=== PATIENT | female | born 1960 | race Caucasian/White ===

== ENCOUNTER 2017-09-18 16:30 | Emergency (ER) | payer OTHER, MEDICAID, SELFPAY ==
[2017-09-18 16:31] VITALS: BP 135/75; PULSE 67; RESP 20; TEMP 36.1; O2SAT 100; BMI 19.3
--- NOTE | 2017-09-18 16:50 | PC.NURSE ---
Patient refuses to speak to nurse about procedure and refuses assessment. Reports I don't need a nurse, I need a doctor.
--- NOTE | 2017-09-18 16:51 | ED.SKABFB ---
HPI - Skin/Abscess/Foreign Bdy <Carmelita Ricardo PA-C - Last Filed: 09/18/17 21:58> General Chief complaint: Skin/Abscess/Foreign Body Stated complaint: POST OP BLEEDING Time Seen by Provider: 09/18/17 16:54 Source: patient Mode of arrival: ambulatory Limitations: no limitations History of Present Illness HPI narrative: This 56-year-old female states she was sent here by her PCP office today. She states that she is ???panicking???, because she had a stereotactic right breast biopsy yesterday and now has significant swelling and bruising underneath the breast. She states that she was told to rest today and wear a compression dressing, however she could not tolerate the dressing and had to work. 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 She denies any other new c/o except feeling anxious about this. No fever or other sx on ROS Related Data Previous Rx's Medication Instructions Recorded zolpidem 5 mg PO HSP PRN #20 tab 06/04/16 thyroid (pork) [[place] Thyroid] 60 mg PO EVERY OTHER DAY #90 tab 05/09/17 thyroid (pork) [[place] Thyroid] 90 mg PO SEE INSTRUCTIONS #90 tab 06/03/17 Review of Systems <Carmelita Ricardo PA-C - Last Filed: 09/18/17 21:58> Review of Systems All systems reviewed & are unremarkable except as noted in HPI and below Exam <Carmelita Ricardo PA-C - Last Filed: 09/18/17 21:58> Narrative Exam Narrative: GENERAL APPEARANCE: Patient sitting comfortably, in no distress. LUNGS: Clear to auscultation bilaterally. HEART: Rate and rhythm regular without murmur, normal S1 and S2, no S3 or S4. DERM: There are 2 puncture wounds on the R. breast, both scabbed. Around the inferior wound there is eccymoses and a small hematoma, mildly tender. No erythema or d/c. Compression dressing and wrap placed Initial Vital Signs Initial Vital Signs: Vital Signs Temperature 97.0 F L 09/18/17 16:31 Pulse Rate 67 09/18/17 16:31 Respiratory Rate 20 09/18/17 16:31 Blood Pressure 135/75 H 09/18/17 16:31 Pulse Oximetry 100 09/18/17 16:31 <Pineda Barnes DO - Last Filed: 09/22/17 07:06> Initial Vital Signs Initial Vital Signs: Vital Signs Temperature 97.0 F L 09/18/17 16:31 Pulse Rate 67 09/18/17 16:31 Respiratory Rate 20 09/18/17 16:31 Blood Pressure 135/75 H 09/18/17 16:31 Pulse Oximetry 100 09/18/17 16:31 Course <Carmelita Ricardo PA-C - Last Filed: 09/18/17 21:58> Orders Ordered: Discontinued Medications Acetaminophen (Tylenol) 650 mg PO NOW ONE Stop: 09/18/17 17:32 Last Admin: 09/18/17 17:34 Dose: 650 mg Vital Signs - 8 hr 09/18/17 16:31 Temperature 97.0 F L Pulse Rate 67 Respiratory Rate 20 Blood Pressure 135/75 H Pulse Oximetry 100 <Pineda Barnes DO - Last Filed: 09/22/17 07:06> Orders Ordered: Discontinued Medications Acetaminophen (Tylenol) 650 mg PO NOW ONE Stop: 09/18/17 17:32 Last Admin: 09/18/17 17:34 Dose: 650 mg Vital Signs - 8 hr 09/18/17 16:31 Temperature 97.0 F L Pulse Rate 67 Respiratory Rate 20 Blood Pressure 135/75 H Pulse Oximetry 100 Discharge Plan Departure Patient Disposition: Home, Self-Care Clinical Impression: Postoperative hematoma Discharge Date/Time: 09/18/17 17:45 Interventions: ED Discharge Assessment Last Done: 09/18/17 17:49 Instructions: DI for Hematoma (Bruise), Breast Needle Biopsy Activity Restrictions/Additional Instructions: It looks like you have some bleeding and bruising on the tissues under the skin. This is related to the biopsy but also due to you doing hard work today and not wearing the compression dressing. Keep a dressing on the wound like the 1 that we gave you today as that should help you be more comfortable. Try to avoid heavy work with your upper body as much as possible as you were instructed yesterday (that increases pressure on the surgery site and makes it take longer to heal). Follow up with your PCP in a couple of days for recheck. Return here if any acutely worsening symptoms. Prescriptions: No Action zolpidem 5 MG tablet 5 mg PO HSP PRNQty: 20 RF: 0 thyroid (pork) [[place] Thyroid] 60 MG tablet 60 mg PO EVERY OTHER DAY Qty: 90 RF: 3 thyroid (pork) [[place] Thyroid] 90 MG tablet 90 mg PO SEE INSTRUCTIONS Qty: 90 RF: 3 Referrals: Juan J Soriano MD [Primary Care Provider] - <Pineda Barnes DO - Last Filed: 09/22/17 07:06> Cosign ED Attending Jerome Attestation: I was available for consultation during this patient's emergency department encounter
[2017-09-18] MEDS: ACETAMINOPHEN 325 MG TABLET 650 MG PO (17:34)
--- NOTE | 2017-09-18 17:46 | PC.NURSE ---
Pt had breast biopsy yesterday. Puncture site is located on the underside of the right breast. Denies fever, chills, or any purulent drainage. There is redness/bruising around the puncture site.
== END 2017-09-18 17:45 | disposition home or self-care (01) ==
PROVIDERS: Emergency Provider Internal Medicine; PCP Family Medicine
DX: T81.9XXA Unspecified complication of procedure, initial encounter (principal)
CPT/HCPCS: 99282

== ENCOUNTER 2017-10-25 12:20 | Emergency (ER) | payer OTHER, MEDICAID, SELFPAY ==
[2017-10-25] VITALS (7 sets, daily range): BP systolic 116–142; BP diastolic 64–78; PULSE 55–66; RESP 12–16; TEMP 36.9; O2SAT 99–100
--- NOTE | 2017-10-25 12:28 | ED.CHESTPAIN ---
HPI - Chest Pain <KESHA Moscoso - Last Filed: 10/25/17 22:04> General Chief Complaint: Chest Pain Stated Complaint: HEART AND JAW PAIN Time Seen by Provider: 10/25/17 12:25 History of Present Illness HPI narrative: 56-year-old female with history of hypothyroidism and previous breast cancer here for complaint of chest pain on and off with pain radiating to the jaw for the last 2 days. She states that pain comes with activity. She does report that she has been under increased stress recently. She denies any cardiac history. She states she does not have pain at the current time. She denies any trauma to the chest. No shortness of breath. No fevers no chills. No cough. She is ambulatory into the emergency room. She states her last TSH was approximately 6-8 months ago and was normal. She states she is currently taking her thyroid medication as prescribed. She states that pain decreases when she is resting. She denies any other concerns or complaints. No nausea vomiting no diaphoresis. MD complaint: chest pain Duration: intermittent and now resolved Onset: during exertion Pain location: left chest Severity: moderate Related Data Previous Rx's Medication Instructions Recorded thyroid (pork) [[place] Thyroid] 60 mg PO EVERY OTHER DAY #90 tab 05/09/17 thyroid (pork) [[place] Thyroid] 90 mg PO SEE INSTRUCTIONS #90 tab 06/03/17 Allergies Allergy/AdvReac Type Severity Reaction Status Date / Time No Known Drug Allergies Allergy Unverified 09/23/17 09:30 Review of Systems <KESHA Moscoso - Last Filed: 10/25/17 22:04> Constitutional Denies chills, Denies fatigue, Denies fever(s), Denies lethargy and Denies weakness Eyes Denies change in vision, Denies eye discharge, Denies irritation and Denies loss of vision ENT Ears, Nose, Mouth, and Throat: Denies change in voice, Denies neck pain and Denies sore throat Cardiovascular Reports chest pain, Reports radiating jaw, neck or arm pain, Denies dyspnea and Denies dyspnea on exertion Respiratory Denies cough, Denies dyspnea, Denies dyspnea on exertion and Denies wheezing Gastrointestinal Gastrointestinal: Denies abdominal pain, Denies change in bowel habits, Denies diarrhea, Denies nausea and Denies vomiting Genitourinary Denies hematuria, Denies flank pain, Denies urinary incontinence and Denies urinary urgency Musculoskeletal Denies neck pain Integumentary/Breasts Denies pruritus, Denies erythema, Denies rash and Denies wounds Neurologic Denies loss of vision and Denies weakness Endocrine Denies fatigue and Denies flushing Allergic/Immunologic Denies wheezing Exam <KESHA Moscoso - Last Filed: 10/25/17 22:04> Initial Vital Signs Initial Vital Signs: Vital Signs Temperature 98.4 F 10/25/17 12:33 Pulse Rate 59 L 10/25/17 12:33 Respiratory Rate 16 10/25/17 12:33 Blood Pressure 142/78 H 10/25/17 12:33 Pulse Oximetry 99 10/25/17 12:33 Const General: cooperative and well developed Nutritional Appearance: well nourished Orientation: alert, awake, oriented x3 and not confused [place] Mouth: oral mucosae normal and moist mucous membranes Eyes Conjunctivae: conjunctivae normal Sclera: sclerae normal Pupils: PERRL EOM: EOM intact bilaterally Neck Neck: normal visual inspection, trachea midline, No lymphadenopathy, No midline deformity and No JVD Lymphatic: No lymphedema Chest Chest: normal inspection of the chest Resp Effort & Inspection: normal respiratory effort, able to speak in complete sentences, no respiratory distress and no use of accessory muscles Auscultation: clear to auscultation bilaterally, no rales, no rhonchi and no wheezes Cardio Rate: regular rate Rhythm: regular rhythm Heart Sounds: no click, no gallops, no murmurs and no rubs Pulses: normal peripheral pulses GI Inspection: non-distended Palpation: soft, no hepatosplenomegaly, No guarding, No pulsatile mass and No tender Auscultation: normal bowel sounds Skin General: no rashes or lesions noted, No jaundice and No petechiae <Pineda Barnes DO - Last Filed: 10/26/17 07:54> Initial Vital Signs Initial Vital Signs: Vital Signs Temperature 98.4 F 10/25/17 12:33 Pulse Rate 59 L 10/25/17 12:33 Respiratory Rate 16 10/25/17 12:33 Blood Pressure 142/78 H 10/25/17 12:33 Pulse Oximetry 99 10/25/17 12:33 Course <KESHA Moscoso - Last Filed: 10/25/17 22:04> Orders Ordered: Discontinued Medications Aspirin (Aspirin Chew) 324 mg PO NOW ONE Stop: 10/25/17 12:39 Last Admin: 10/25/17 13:02 Dose: 324 mg Sodium Chloride (Normal Saline 0.9%) 1,000 mls @ 150 mls/hr IV CONT AGA Last Admin: 10/25/17 13:03 Dose: Vital Signs - 8 hr 10/25/17 14:30 10/25/17 15:00 10/25/17 16:18 Pulse Rate 58 L 59 L 55 L Respiratory Rate 12 12 12 Blood Pressure [Left Arm] 129/64 H 124/73 H Pulse Oximetry 100 100 <Pineda Barnes DO - Last Filed: 10/26/17 07:54> Orders Ordered: Discontinued Medications Aspirin (Aspirin Chew) 324 mg PO NOW ONE Stop: 10/25/17 12:39 Last Admin: 10/25/17 13:02 Dose: 324 mg Sodium Chloride (Normal Saline 0.9%) 1,000 mls @ 150 mls/hr IV CONT AGA Last Admin: 10/25/17 13:03 Dose: Vital Signs - 8 hr 10/25/17 14:30 10/25/17 15:00 10/25/17 16:18 Pulse Rate 58 L 59 L 55 L Respiratory Rate 12 12 12 Blood Pressure [Left Arm] 129/64 H 124/73 H Pulse Oximetry 100 100 MDM - Chest Pain <KESHA Moscoso - Last Filed: 10/25/17 22:04> Lab Data Result diagrams: 10/25/17 12:40 10/25/17 12:40 Lab Results 10/25/17 10/25/17 10/25/17 Range/Units 12:40 12:40 12:40 WBC 6.1 (4.5-11.0) X10^3/uL RBC 3.95 L (4.0-5.2) X10^6/uL Hgb 12.7 (12.0-16.0) g/dL Hct 36.9 (36-46) % MCV 93.5 (80-100) fL MCH 32.2 (26-34) PG MCHC 34.4 (30-36) % RDW 14.2 (11.6-14.8) % Plt Count 184 (150-400) X10^3/uL Neut % (Auto) 47.6 L (50-75) % Lymph % (Auto) 40.3 H (25-40) % [place] % (Auto) 9.1 (3-14) % Eos % (Auto) 2.1 (2-4) % Baso % (Auto) 0.9 (0-2) % Neut # (Auto) 2900 L (6238-3344) /uL Sodium 137 (137-145) mmol/L Potassium 3.9 (3.4-5.1) mmol/L Chloride 104 (98-107) mmol/L Carbon Dioxide 26 (22-32) mmol/L BUN 14 (7-17) mg/dL Creatinine 0.70 (0.52-1.04) mg/dL Estimated GFR > 60.0 (>60) mL/min BUN/Creatinine Ratio 20.0 (6-22) Glucose 83 (70-100) mg/dL Calcium 9.5 (8.4-10.2) mg/dL Total Bilirubin 0.4 (0.2-1.3) mg/dL AST 33 (14-36) IU/L ALT 41 (9-52) IU/L Alkaline Phosphatase 91 (38-126) U/L Total Creatine Kinase 96 (30-135) U/L Troponin I < 0.012 (0.01-0.034) ng/mL B-Natriuretic Peptide < 100.0 (<100) Total Protein 6.7 (6.3-8.2) g/dL Albumin 4.1 (3.5-5.0) g/dL Globulin 2.6 (1.7-4.1) g/dL Albumin/Globulin Ratio 1.6 (1.0-2.8) TSH 2.06 (0.47-4.68) uIU/mL 10/25/17 Range/Units 14:42 WBC (4.5-11.0) X10^3/uL RBC (4.0-5.2) X10^6/uL Hgb (12.0-16.0) g/dL Hct (36-46) % MCV (80-100) fL MCH (26-34) PG MCHC (30-36) % RDW (11.6-14.8) % Plt Count (150-400) X10^3/uL Neut % (Auto) (50-75) % Lymph % (Auto) (25-40) % [place] % (Auto) (3-14) % Eos % (Auto) (2-4) % Baso % (Auto) (0-2) % Neut # (Auto) (0174-1249) /uL Sodium (137-145) mmol/L Potassium (3.4-5.1) mmol/L Chloride (98-107) mmol/L Carbon Dioxide (22-32) mmol/L BUN (7-17) mg/dL Creatinine (0.52-1.04) mg/dL Estimated GFR (>60) mL/min BUN/Creatinine Ratio (6-22) Glucose (70-100) mg/dL Calcium (8.4-10.2) mg/dL Total Bilirubin (0.2-1.3) mg/dL AST (14-36) IU/L ALT (9-52) IU/L Alkaline Phosphatase (38-126) U/L Total Creatine Kinase (30-135) U/L Troponin I < 0.012 (0.01-0.034) ng/mL B-Natriuretic Peptide (<100) Total Protein (6.3-8.2) g/dL Albumin (3.5-5.0) g/dL Globulin (1.7-4.1) g/dL Albumin/Globulin Ratio (1.0-2.8) TSH (0.47-4.68) uIU/mL Imaging Data Chest x-ray: Radiologist's impression: PROCEDURE: XR CHEST 1V INDICATIONS: chest pain TECHNIQUE: One view of the chest was acquired. COMPARISON: None. FINDINGS: Surgical changes and devices: Surgical clips left axilla.. Lungs and pleura: No pleural effusions or pneumothorax. Lungs are clear. Breast asymmetries with faint nipple shadows bilaterally. Mediastinum: Mediastinal contours appear normal. Heart size is normal. Bones and chest wall: No suspicious bony lesions. Overlying soft tissues appear unremarkable. IMPRESSION: No acute cardiopulmonary abnormality. Dictated by: Harsh Andrade M.D. on 10/25/2017 at 12:52 Approved by: Harsh Andrade M.D. on 10/25/2017 at 12:55 ECG Data Interpretation: EKG shows sinus bradycardia with no ST elevation or depression. No ectopy. Ventricular rate of 59. Pr interval of 160. QRS duration of 104. QT of 436. MDM Narrative Medical decision making narrative: EKG was obtained shows sinus rhythm with no ST elevation or depression. No ectopy. Chest x-ray was obtained was negative for any acute findings. CBC and Chem panel were obtained were unremarkable. Cardiac enzymes were negative. TSH was normal. No emergent cause of chest pain is found today. Recommended to patient follow up with primary care provider for further evaluation such as echo and stress test to rule out other cardiac complications. [id number] Tylenol Motrin as needed for any discomfort. Return to the emergency room for any worsening symptoms. Follow up primary care provider in the next few days. <Pineda Barnes, - Last Filed: 10/26/17 07:54> Lab Data Lab Results 10/25/17 10/25/17 10/25/17 Range/Units 12:40 12:40 12:40 WBC 6.1 (4.5-11.0) X10^3/uL RBC 3.95 L (4.0-5.2) X10^6/uL Hgb 12.7 (12.0-16.0) g/dL Hct 36.9 (36-46) % MCV 93.5 (80-100) fL MCH 32.2 (26-34) PG MCHC 34.4 (30-36) % RDW 14.2 (11.6-14.8) % Plt Count 184 (150-400) X10^3/uL Neut % (Auto) 47.6 L (50-75) % Lymph % (Auto) 40.3 H (25-40) % [place] % (Auto) 9.1 (3-14) % Eos % (Auto) 2.1 (2-4) % Baso % (Auto) 0.9 (0-2) % Neut # (Auto) 2900 L (0137-1460) /uL Sodium 137 (137-145) mmol/L Potassium 3.9 (3.4-5.1) mmol/L Chloride 104 (98-107) mmol/L Carbon Dioxide 26 (22-32) mmol/L BUN 14 (7-17) mg/dL Creatinine 0.70 (0.52-1.04) mg/dL Estimated GFR > 60.0 (>60) mL/min BUN/Creatinine Ratio 20.0 (6-22) Glucose 83 (70-100) mg/dL Calcium 9.5 (8.4-10.2) mg/dL Total Bilirubin 0.4 (0.2-1.3) mg/dL AST 33 (14-36) IU/L ALT 41 (9-52) IU/L Alkaline Phosphatase 91 (38-126) U/L Total Creatine Kinase 96 (30-135) U/L Troponin I < 0.012 (0.01-0.034) ng/mL B-Natriuretic Peptide < 100.0 (<100) Total Protein 6.7 (6.3-8.2) g/dL Albumin 4.1 (3.5-5.0) g/dL Globulin 2.6 (1.7-4.1) g/dL Albumin/Globulin Ratio 1.6 (1.0-2.8) TSH 2.06 (0.47-4.68) uIU/mL 10/25/17 Range/Units 14:42 WBC (4.5-11.0) X10^3/uL RBC (4.0-5.2) X10^6/uL Hgb (12.0-16.0) g/dL Hct (36-46) % MCV (80-100) fL MCH (26-34) PG MCHC (30-36) % RDW (11.6-14.8) % Plt Count (150-400) X10^3/uL Neut % (Auto) (50-75) % Lymph % (Auto) (25-40) % [place] % (Auto) (3-14) % Eos % (Auto) (2-4) % Baso % (Auto) (0-2) % Neut # (Auto) (5210-1925) /uL Sodium (137-145) mmol/L Potassium (3.4-5.1) mmol/L Chloride (98-107) mmol/L Carbon Dioxide (22-32) mmol/L BUN (7-17) mg/dL Creatinine (0.52-1.04) mg/dL Estimated GFR (>60) mL/min BUN/Creatinine Ratio (6-22) Glucose (70-100) mg/dL Calcium (8.4-10.2) mg/dL Total Bilirubin (0.2-1.3) mg/dL AST (14-36) IU/L ALT (9-52) IU/L Alkaline Phosphatase (38-126) U/L Total Creatine Kinase (30-135) U/L Troponin I < 0.012 (0.01-0.034) ng/mL B-Natriuretic Peptide (<100) Total Protein (6.3-8.2) g/dL Albumin (3.5-5.0) g/dL Globulin (1.7-4.1) g/dL Albumin/Globulin Ratio (1.0-2.8) TSH (0.47-4.68) uIU/mL Discharge Plan Departure Patient Disposition: Home, Self-Care Clinical Impression: Chest pain Discharge Date/Time: 10/25/17 16:37 Interventions: ED Discharge Assessment Last Done: 10/25/17 16:36 Instructions: DI for Chest Pain Activity Restrictions/Additional Instructions: EKG, chest x-ray and laboratory results were unremarkable today. No emergent cause of chest pain is found today. Use [id number] Tylenol and Motrin as needed for any discomfort. Chest pain may be due to chest wall pain. Recommend following up with primary care provider in the next few days for re-evaluation and discussion of obtaining further testing such as stress test and echocardiogram. For any worsening symptoms return to the emergency room. Prescriptions: No Action thyroid (pork) [[place] Thyroid] 60 MG tablet 60 mg PO EVERY OTHER DAY Qty: 90 RF: 3 thyroid (pork) [[place] Thyroid] 90 MG tablet 90 mg PO SEE INSTRUCTIONS Qty: 90 RF: 3 Referrals: Juan J Soriano MD [Primary Care Provider] - <Pineda Barnes DO - Last Filed: 10/26/17 07:54> Cosign ED Attending Jerome Attestation: I was available for consultation during this patient's emergency department encounter
--- NOTE | 2017-10-25 12:38 | DI.RAD.S_ITS ---
PROCEDURE: XR CHEST 1V INDICATIONS: chest pain TECHNIQUE: One view of the chest was acquired. COMPARISON: None. FINDINGS: Surgical changes and devices: Surgical clips left axilla.. Lungs and pleura: No pleural effusions or pneumothorax. Lungs are clear. Breast asymmetries with faint nipple shadows bilaterally. Mediastinum: Mediastinal contours appear normal. Heart size is normal. Bones and chest wall: No suspicious bony lesions. Overlying soft tissues appear unremarkable. IMPRESSION: No acute cardiopulmonary abnormality. Dictated by: Harsh Andrade M.D. on 10/25/2017 at 12:52 Approved by: Harsh Andrade M.D. on 10/25/2017 at 12:55
--- NOTE | 2017-10-25 12:49 | DI.CT.S_ITS ---
PROCEDURE: CT ANGIO CHEST PE PROTOCOL INDICATIONS: chest pain hx of breast cancer TECHNIQUE: After the administration of intravenous contrast, 2 mm thick sections acquired from the pulmonary apices to the posterior costophrenic angles. 3-dimensional maximum intensity projection (MIP) coronal and sagittal reformats were then acquired through the thorax. For radiation dose reduction, the following was used: automated exposure control, adjustment of mA and/or kV according to patient size. COMPARISON: None. FINDINGS: Image quality: Suboptimal timing of the contrast bolus Pulmonary arteries: Pulmonary arteries are normal in size, and demonstrate no intraluminal filling defects to suggest central pulmonary embolism. Lungs and pleura: Lungs are clear. No pleural effusions or pneumothorax. Central and peripheral airways are patent. Mediastinum: Heart size is normal, without pericardial effusion. No mediastinal or hilar adenopathy. Thoracic aorta is normal in caliber and enhancement. Esophagus is normal in caliber, without hiatal hernia. Bones and chest wall: Subtotal left mastectomy. Surgical clips in the left axilla. No suspicious bony lesions. Ribs and thoracic spine appear intact throughout. Thyroid gland is elongated on the right and appears to contain a 6 mm hypodense nodule anteriorly.. No axillary or supraclavicular adenopathy. Abdomen: Visualized upper abdominal solid organs appear normal in the early arterial phase of enhancement. IMPRESSION: 1. Exam is negative for pulmonary embolic disease. 2. No acute cardiopulmonary abnormality. 3. Enlarged right lobe of thyroid. Suggest thyroid ultrasound imaging. 4. Postoperative changes related to left breast cancer. No evidence of metastases. Dictated by: Harsh Andrade M.D. on 10/25/2017 at 13:38 Approved by: Harsh Andrade M.D. on 10/25/2017 at 13:46
--- NOTE | 2017-10-25 12:50 | ED_ITS ---
HPI - Chest Pain <KESHA Moscoso - Last Filed: 10/25/17 22:04> General Chief Complaint: Chest Pain Stated Complaint: HEART AND JAW PAIN Time Seen by Provider: 10/25/17 12:25 History of Present Illness HPI narrative: 56-year-old female with history of hypothyroidism and previous breast cancer here for complaint of chest pain on and off with pain radiating to the jaw for the last 2 days. She states that pain comes with activity. She does report that she has been under increased stress recently. She denies any cardiac history. She states she does not have pain at the current time. She denies any trauma to the chest. No shortness of breath. No fevers no chills. No cough. She is ambulatory into the emergency room. She states her last TSH was approximately 6-8 months ago and was normal. She states she is currently taking her thyroid medication as prescribed. She states that pain decreases when she is resting. She denies any other concerns or complaints. No nausea vomiting no diaphoresis. MD complaint: chest pain Duration: intermittent and now resolved Onset: during exertion Pain location: left chest Severity: moderate Related Data Previous Rx's Medication Instructions Recorded thyroid (pork) [[place] Thyroid] 60 mg PO EVERY OTHER DAY #90 tab 05/09/17 thyroid (pork) [[place] Thyroid] 90 mg PO SEE INSTRUCTIONS #90 tab 06/03/17 Allergies Allergy/AdvReac Type Severity Reaction Status Date / Time No Known Drug Allergies Allergy Unverified 09/23/17 09:30 Review of Systems <KESHA Moscoso - Last Filed: 10/25/17 22:04> Constitutional Denies chills, Denies fatigue, Denies fever(s), Denies lethargy and Denies weakness Eyes Denies change in vision, Denies eye discharge, Denies irritation and Denies loss of vision ENT Ears, Nose, Mouth, and Throat: Denies change in voice, Denies neck pain and Denies sore throat Cardiovascular Reports chest pain, Reports radiating jaw, neck or arm pain, Denies dyspnea and Denies dyspnea on exertion Respiratory Denies cough, Denies dyspnea, Denies dyspnea on exertion and Denies wheezing Gastrointestinal Gastrointestinal: Denies abdominal pain, Denies change in bowel habits, Denies diarrhea, Denies nausea and Denies vomiting Genitourinary Denies hematuria, Denies flank pain, Denies urinary incontinence and Denies urinary urgency Musculoskeletal Denies neck pain Integumentary/Breasts Denies pruritus, Denies erythema, Denies rash and Denies wounds Neurologic Denies loss of vision and Denies weakness Endocrine Denies fatigue and Denies flushing Allergic/Immunologic Denies wheezing Exam <KESHA Moscoso - Last Filed: 10/25/17 22:04> Initial Vital Signs Initial Vital Signs: Vital Signs Temperature 98.4 F 10/25/17 12:33 Pulse Rate 59 L 10/25/17 12:33 Respiratory Rate 16 10/25/17 12:33 Blood Pressure 142/78 H 10/25/17 12:33 Pulse Oximetry 99 10/25/17 12:33 Const General: cooperative and well developed Nutritional Appearance: well nourished Orientation: alert, awake, oriented x3 and not confused HENME Mouth: oral mucosae normal and moist mucous membranes Eyes Conjunctivae: conjunctivae normal Sclera: sclerae normal Pupils: PERRL EOM: EOM intact bilaterally Neck Neck: normal visual inspection, trachea midline, No lymphadenopathy, No midline deformity and No JVD Lymphatic: No lymphedema Chest Chest: normal inspection of the chest Resp Effort & Inspection: normal respiratory effort, able to speak in complete sentences, no respiratory distress and no use of accessory muscles Auscultation: clear to auscultation bilaterally, no rales, no rhonchi and no wheezes Cardio Rate: regular rate Rhythm: regular rhythm Heart Sounds: no click, no gallops, no murmurs and no rubs Pulses: normal peripheral pulses GI Inspection: non-distended Palpation: soft, no hepatosplenomegaly, No guarding, No pulsatile mass and No tender Auscultation: normal bowel sounds Skin General: no rashes or lesions noted, No jaundice and No petechiae <Pineda Barnes DO - Last Filed: 10/26/17 07:54> Initial Vital Signs Initial Vital Signs: Vital Signs Temperature 98.4 F 10/25/17 12:33 Pulse Rate 59 L 10/25/17 12:33 Respiratory Rate 16 10/25/17 12:33 Blood Pressure 142/78 H 10/25/17 12:33 Pulse Oximetry 99 10/25/17 12:33 Course <KESHA Moscoso - Last Filed: 10/25/17 22:04> Orders Ordered: Discontinued Medications Aspirin (Aspirin Chew) 324 mg PO NOW ONE Stop: 10/25/17 12:39 Last Admin: 10/25/17 13:02 Dose: 324 mg Sodium Chloride (Normal Saline 0.9%) 1,000 mls @ 150 mls/hr IV CONT AGA Last Admin: 10/25/17 13:03 Dose: Vital Signs - 8 hr 10/25/17 14:30 10/25/17 15:00 10/25/17 16:18 Pulse Rate 58 L 59 L 55 L Respiratory Rate 12 12 12 Blood Pressure [Left Arm] 129/64 H 124/73 H Pulse Oximetry 100 100 <Pineda Barnes DO - Last Filed: 10/26/17 07:54> Orders Ordered: Discontinued Medications Aspirin (Aspirin Chew) 324 mg PO NOW ONE Stop: 10/25/17 12:39 Last Admin: 10/25/17 13:02 Dose: 324 mg Sodium Chloride (Normal Saline 0.9%) 1,000 mls @ 150 mls/hr IV CONT AGA Last Admin: 10/25/17 13:03 Dose: Vital Signs - 8 hr 10/25/17 14:30 10/25/17 15:00 10/25/17 16:18 Pulse Rate 58 L 59 L 55 L Respiratory Rate 12 12 12 Blood Pressure [Left Arm] 129/64 H 124/73 H Pulse Oximetry 100 100 MDM - Chest Pain <KESHA Moscoso - Last Filed: 10/25/17 22:04> Lab Data Result diagrams: 10/25/17 12:40 10/25/17 12:40 Lab Results 10/25/17 10/25/17 10/25/17 Range/Units 12:40 12:40 12:40 WBC 6.1 (4.5-11.0) X10^3/uL RBC 3.95 L (4.0-5.2) X10^6/uL Hgb 12.7 (12.0-16.0) g/dL Hct 36.9 (36-46) % MCV 93.5 (80-100) fL MCH 32.2 (26-34) PG MCHC 34.4 (30-36) % RDW 14.2 (11.6-14.8) % Plt Count 184 (150-400) X10^3/uL Neut % (Auto) 47.6 L (50-75) % Lymph % (Auto) 40.3 H (25-40) % [place] % (Auto) 9.1 (3-14) % Eos % (Auto) 2.1 (2-4) % Baso % (Auto) 0.9 (0-2) % Neut # (Auto) 2900 L (6157-3241) /uL Sodium 137 (137-145) mmol/L Potassium 3.9 (3.4-5.1) mmol/L Chloride 104 (98-107) mmol/L Carbon Dioxide 26 (22-32) mmol/L BUN 14 (7-17) mg/dL Creatinine 0.70 (0.52-1.04) mg/dL Estimated GFR > 60.0 (>60) mL/min BUN/Creatinine Ratio 20.0 (6-22) Glucose 83 (70-100) mg/dL Calcium 9.5 (8.4-10.2) mg/dL Total Bilirubin 0.4 (0.2-1.3) mg/dL AST 33 (14-36) IU/L ALT 41 (9-52) IU/L Alkaline Phosphatase 91 (38-126) U/L Total Creatine Kinase 96 (30-135) U/L Troponin I < 0.012 (0.01-0.034) ng/mL B-Natriuretic Peptide < 100.0 (<100) Total Protein 6.7 (6.3-8.2) g/dL Albumin 4.1 (3.5-5.0) g/dL Globulin 2.6 (1.7-4.1) g/dL Albumin/Globulin Ratio 1.6 (1.0-2.8) TSH 2.06 (0.47-4.68) uIU/mL 10/25/17 Range/Units 14:42 WBC (4.5-11.0) X10^3/uL RBC (4.0-5.2) X10^6/uL Hgb (12.0-16.0) g/dL Hct (36-46) % MCV (80-100) fL MCH (26-34) PG MCHC (30-36) % RDW (11.6-14.8) % Plt Count (150-400) X10^3/uL Neut % (Auto) (50-75) % Lymph % (Auto) (25-40) % [place] % (Auto) (3-14) % Eos % (Auto) (2-4) % Baso % (Auto) (0-2) % Neut # (Auto) (9797-2925) /uL Sodium (137-145) mmol/L Potassium (3.4-5.1) mmol/L Chloride (98-107) mmol/L Carbon Dioxide (22-32) mmol/L BUN (7-17) mg/dL Creatinine (0.52-1.04) mg/dL Estimated GFR (>60) mL/min BUN/Creatinine Ratio (6-22) Glucose (70-100) mg/dL Calcium (8.4-10.2) mg/dL Total Bilirubin (0.2-1.3) mg/dL AST (14-36) IU/L ALT (9-52) IU/L Alkaline Phosphatase (38-126) U/L Total Creatine Kinase (30-135) U/L Troponin I < 0.012 (0.01-0.034) ng/mL B-Natriuretic Peptide (<100) Total Protein (6.3-8.2) g/dL Albumin (3.5-5.0) g/dL Globulin (1.7-4.1) g/dL Albumin/Globulin Ratio (1.0-2.8) TSH (0.47-4.68) uIU/mL Imaging Data Chest x-ray: Radiologist's impression: PROCEDURE: XR CHEST 1V INDICATIONS: chest pain TECHNIQUE: One view of the chest was acquired. COMPARISON: None. FINDINGS: Surgical changes and devices: Surgical clips left axilla.. Lungs and pleura: No pleural effusions or pneumothorax. Lungs are clear. Breast asymmetries with faint nipple shadows bilaterally. Mediastinum: Mediastinal contours appear normal. Heart size is normal. Bones and chest wall: No suspicious bony lesions. Overlying soft tissues appear unremarkable. IMPRESSION: No acute cardiopulmonary abnormality. Dictated by: Harsh Andrade M.D. on 10/25/2017 at 12:52 Approved by: Harsh Andrade M.D. on 10/25/2017 at 12:55 ECG Data Interpretation: EKG shows sinus bradycardia with no ST elevation or depression. No ectopy. Ventricular rate of 59. Pr interval of 160. QRS duration of 104. QT of 436. MDM Narrative Medical decision making narrative: EKG was obtained shows sinus rhythm with no ST elevation or depression. No ectopy. Chest x-ray was obtained was negative for any acute findings. CBC and Chem panel were obtained were unremarkable. Cardiac enzymes were negative. TSH was normal. No emergent cause of chest pain is found today. Recommended to patient follow up with primary care provider for further evaluation such as echo and stress test to rule out other cardiac complications. [id number] Tylenol Motrin as needed for any discomfort. Return to the emergency room for any worsening symptoms. Follow up primary care provider in the next few days. <Pineda Barnes, - Last Filed: 10/26/17 07:54> Lab Data Lab Results 10/25/17 10/25/17 10/25/17 Range/Units 12:40 12:40 12:40 WBC 6.1 (4.5-11.0) X10^3/uL RBC 3.95 L (4.0-5.2) X10^6/uL Hgb 12.7 (12.0-16.0) g/dL Hct 36.9 (36-46) % MCV 93.5 (80-100) fL MCH 32.2 (26-34) PG MCHC 34.4 (30-36) % RDW 14.2 (11.6-14.8) % Plt Count 184 (150-400) X10^3/uL Neut % (Auto) 47.6 L (50-75) % Lymph % (Auto) 40.3 H (25-40) % [place] % (Auto) 9.1 (3-14) % Eos % (Auto) 2.1 (2-4) % Baso % (Auto) 0.9 (0-2) % Neut # (Auto) 2900 L (1924-4395) /uL Sodium 137 (137-145) mmol/L Potassium 3.9 (3.4-5.1) mmol/L Chloride 104 (98-107) mmol/L Carbon Dioxide 26 (22-32) mmol/L BUN 14 (7-17) mg/dL Creatinine 0.70 (0.52-1.04) mg/dL Estimated GFR > 60.0 (>60) mL/min BUN/Creatinine Ratio 20.0 (6-22) Glucose 83 (70-100) mg/dL Calcium 9.5 (8.4-10.2) mg/dL Total Bilirubin 0.4 (0.2-1.3) mg/dL AST 33 (14-36) IU/L ALT 41 (9-52) IU/L Alkaline Phosphatase 91 (38-126) U/L Total Creatine Kinase 96 (30-135) U/L Troponin I < 0.012 (0.01-0.034) ng/mL B-Natriuretic Peptide < 100.0 (<100) Total Protein 6.7 (6.3-8.2) g/dL Albumin 4.1 (3.5-5.0) g/dL Globulin 2.6 (1.7-4.1) g/dL Albumin/Globulin Ratio 1.6 (1.0-2.8) TSH 2.06 (0.47-4.68) uIU/mL 10/25/17 Range/Units 14:42 WBC (4.5-11.0) X10^3/uL RBC (4.0-5.2) X10^6/uL Hgb (12.0-16.0) g/dL Hct (36-46) % MCV (80-100) fL MCH (26-34) PG MCHC (30-36) % RDW (11.6-14.8) % Plt Count (150-400) X10^3/uL Neut % (Auto) (50-75) % Lymph % (Auto) (25-40) % [place] % (Auto) (3-14) % Eos % (Auto) (2-4) % Baso % (Auto) (0-2) % Neut # (Auto) (4713-2559) /uL Sodium (137-145) mmol/L Potassium (3.4-5.1) mmol/L Chloride (98-107) mmol/L Carbon Dioxide (22-32) mmol/L BUN (7-17) mg/dL Creatinine (0.52-1.04) mg/dL Estimated GFR (>60) mL/min BUN/Creatinine Ratio (6-22) Glucose (70-100) mg/dL Calcium (8.4-10.2) mg/dL Total Bilirubin (0.2-1.3) mg/dL AST (14-36) IU/L ALT (9-52) IU/L Alkaline Phosphatase (38-126) U/L Total Creatine Kinase (30-135) U/L Troponin I < 0.012 (0.01-0.034) ng/mL B-Natriuretic Peptide (<100) Total Protein (6.3-8.2) g/dL Albumin (3.5-5.0) g/dL Globulin (1.7-4.1) g/dL Albumin/Globulin Ratio (1.0-2.8) TSH (0.47-4.68) uIU/mL Discharge Plan Departure Patient Disposition: Home, Self-Care Clinical Impression: Chest pain Discharge Date/Time: 10/25/17 16:37 Interventions: ED Discharge Assessment Last Done: 10/25/17 16:36 Instructions: DI for Chest Pain Activity Restrictions/Additional Instructions: EKG, chest x-ray and laboratory results were unremarkable today. No emergent cause of chest pain is found today. Use [id number] Tylenol and Motrin as needed for any discomfort. Chest pain may be due to chest wall pain. Recommend following up with primary care provider in the next few days for re-evaluation and discussion of obtaining further testing such as stress test and echocardiogram. For any worsening symptoms return to the emergency room. Prescriptions: No Action thyroid (pork) [[place] Thyroid] 60 MG tablet 60 mg PO EVERY OTHER DAY Qty: 90 RF: 3 thyroid (pork) [[place] Thyroid] 90 MG tablet 90 mg PO SEE INSTRUCTIONS Qty: 90 RF: 3 Referrals: Juan J Soriano MD [Primary Care Provider] - <Pineda Barnes DO - Last Filed: 10/26/17 07:54> Cosign ED Attending Jerome Attestation: I was available for consultation during this patient's emergency department encounter
[2017-10-25 12:52] LABS: Add Manual Diff / Slide Review NO; Basophils Percent Auto 0.9 % (0-2); Eosinophils Percent Auto 2.1 % (2-4); Hematocrit 36.9 % (36-46); Hemoglobin 12.7 g/dL (12.0-16.0); Lymphocytes Percent Auto 40.3 % (25-40); Mean Corpuscular HGB Conc 34.4 % (30-36); Mean Corpuscular Hemoglobin 32.2 PG (26-34); Mean Corpuscular Volume 93.5 fL (80-100); Monocytes Percent Auto 9.1 % (3-14); Neutrophils Absolute Auto 2900 /uL (3000-5900); Neutrophils Percent Auto 47.6 % (50-75); Platelet Count 184 X10^3/uL (150-400); Red Blood Cell Count 3.95 X10^6/uL (4.0-5.2); Red Cell Distribution Width 14.2 % (11.6-14.8); White Blood Cell Count 6.1 X10^3/uL (4.5-11.0)
[2017-10-25] MEDS: ASPIRIN 81 MG TAB 324 MG PO (13:02)
[2017-10-25 13:07] LABS: Alanine Aminotransferase 41 IU/L (9-52); Albumin 4.1 g/dL (3.5-5.0); Albumin Globulin Ratio 1.6 (1.0-2.8); Alkaline Phosphatase 91 U/L (38-126); Aspartate Aminotransferase 33 IU/L (14-36); Bilirubin Total 0.4 mg/dL (0.2-1.3); Blood Urea Nitrogen 14 mg/dL (7-17); Calcium 9.5 mg/dL (8.4-10.2); Carbon Dioxide 26 mmol/L (22-32); Chloride 104 mmol/L (98-107); Creatine Kinase 96 U/L (30-135); Estimated Glomerular Filt Rate > 60.0 mL/min (>60); Globulin 2.6 g/dL (1.7-4.1); Glucose 83 mg/dL (70-100); HEMOLYSIS < 15 (0-50); Potassium 3.9 mmol/L (3.4-5.1); Sodium 137 mmol/L (137-145); Total Protein 6.7 g/dL (6.3-8.2)
[2017-10-25 13:21] LABS: B Type Natriuretic Peptide < 100.0 (<100)
[2017-10-25 13:23] LABS: Troponin I < 0.012 ng/mL (0.01-0.034)
[2017-10-25 13:37] LABS: Thyroid Stimulating Hormone 2.06 uIU/mL (0.47-4.68)
[2017-10-25 16:19] LABS: Troponin I < 0.012 ng/mL (0.01-0.034)
== END 2017-10-25 16:37 | disposition home or self-care (01) ==
PROVIDERS: Emergency Provider Nurse Practitioner Family; PCP Family Medicine
DX: R07.89 Other chest pain (principal)
CPT/HCPCS: 36591; 71045; 71275; 80053; 81003; 82550; 82553; 83880; 84443; 84484; 85025; 93005; 93010; 99283; 99285; Q9967

== ENCOUNTER → 2018-04-11 15:46 | Outpatient (CLI) | payer OTHER, MEDICAID, SELFPAY ==
--- NOTE | 2018-04-11 15:48 | DI.RAD.S_ITS ---
PROCEDURE: XR KNEE RT 3V INDICATIONS: right knee pain TECHNIQUE: 3 views of the knee were acquired. COMPARISON: None. FINDINGS: Bones: No fractures or dislocations. Minimal degenerative change of the medial patellofemoral compartment of the right knee. Soft tissues: No joint effusion. IMPRESSION: No acute osseous abnormality of the right knee. Dictated by: Jose Becerra M.D. on 04/11/2018 at 16:34 Approved by: Jose Becerra M.D. on 04/11/2018 at 16:38
== END ==
PROVIDERS: PCP Family Medicine; Visit Provider Family Medicine
DX: M25.561 Pain in right knee (principal)
CPT/HCPCS: 73562

== ENCOUNTER → 2018-06-10 07:38 | Outpatient (CLI) | payer OTHER, MEDICAID, SELFPAY ==
[2018-06-10 08:29] LABS: Add Manual Diff / Slide Review NO; Basophils Absolute Auto 100 /uL (0-100); Basophils Percent Auto 1.5 % (0-2); Eosinophils Absolute Auto 100 /uL (0-450); Eosinophils Percent Auto 2.7 % (2-4); Hematocrit 41.3 % (36-46); Hemoglobin 13.6 g/dL (12.0-16.0); Lymphocytes Absolute Auto 1500 /uL (1100-4500); Lymphocytes Percent Auto 36.4 % (25-40); Mean Corpuscular Hemoglobin 31.1 PG (26-34); Mean Corpuscular Volume 94.1 fL (80-100); Monocytes Absolute Auto 600 /uL (0-900); Monocytes Percent Auto 13.7 % (3-14); Neutrophils Absolute Auto 1900 /uL (1500-7000); Neutrophils Percent Auto 45.7 % (50-75); Platelet Count 201 X10^3/uL (150-400); Red Blood Cell Count 4.39 X10^6/uL (4.0-5.2); Red Cell Distribution Width 14.9 % (11.6-14.8); White Blood Cell Count 4.1 X10^3/uL (4.5-11.0)
[2018-06-10 09:17] LABS: Alanine Aminotransferase 43 IU/L (9-52); Albumin 4.5 g/dL (3.5-5.0); Albumin Globulin Ratio 1.6 (1.0-2.8); Alkaline Phosphatase 73 U/L (38-126); Aspartate Aminotransferase 33 IU/L (14-36); Bilirubin Total 0.6 mg/dL (0.2-1.3); Blood Urea Nitrogen 12 mg/dL (7-17); Calcium 9.6 mg/dL (8.4-10.2); Carbon Dioxide 29 mmol/L (22-32); Chloride 102 mmol/L (98-107); Cholesterol 236 mg/dL (140-199); Estimated Glomerular Filt Rate > 60.0 mL/min (>60); Globulin 2.8 g/dL (1.7-4.1); Glucose 88 mg/dL (70-100); HDL Cholesterol 107 mg/dL (40-60); HEMOLYSIS < 15 (0-50); LDL Cholesterol Calculated 107 mg/dL (<100); Potassium 4.1 mmol/L (3.4-5.1); Sodium 137 mmol/L (137-145); Total Protein 7.3 g/dL (6.3-8.2); Triglycerides 112 mg/dL (35-150)
== END ==
PROVIDERS: PCP Family Medicine; Visit Provider Family Medicine
DX: Z00.00 Encounter for general adult medical examination without abnormal findings (principal); E03.9 Hypothyroidism, unspecified
CPT/HCPCS: 36415; 80053; 80061; 84443; 85025

== ENCOUNTER 2018-08-12 10:30 | Outpatient (RCR) | payer OTHER, MEDICAID, SELFPAY ==
--- NOTE | 2018-05-20 16:35 | PT.OIE ---
Current Diagnoses Pain in right knee (05/20/18) Muscle weakness (generalized) (05/20/18) Past Medical History (Last Updated 04/15/18 @ 10:28 by Darlene Oliva) Hyperthyroidism (Chronic 2002) History of breast cancer (Resolved) Past Surgical History (Last Reviewed 10/25/17 @ 12:49 by KESHA Moscoso) H/O left mastectomy (Resolved) History of appendectomy (Resolved) Provider Visit Care Team Role Provider Type Juan J Soriano MD Attending Provider Physician Primary Care Provider Specialty: [facility] Address: [address] [place] [address] Email: [email or web address] Physical Therapy Initial Evaluation PT-OP-A Visit Information Start: 05/16/18 16:32 Freq: Status: Active Protocol: Document 05/20/18 08:15 LRN (Rec: 05/20/18 17:46 LRN [id number]) Out-Patient Physical Therapy Visit Information Visit Information Visit Type Initial Evaluation Visit Start Time 08:15 Visit Stop Time 09:08 Total Visit Minutes 53 Visit Number 1 Number of HEAD BANQUET WAITER/WAITRESS Visits 0 Evaluation Information Evaluation Date 05/20/18 PT-OP-B Current Condition Start: 05/16/18 16:32 Freq: Status: Active Protocol: Document 05/20/18 08:15 LRN (Rec: 05/20/18 17:46 LRN [id number]) Current Condition History of Current Condition Onset Date 1-2 months ago. Current Complaints Pain & swelling in R medial knee, general swelling in R foot, ankle, leg. History of Current Condition Pt reports over the summer she noted swelling in the R foot and lower leg pain that progressed to swelling in the lateral aspect of the R knee, changing over time to the medial aspect of the R knee. She thinks she may have hit her R medial knee a couple times but can't recall for sure. She states with use of Epsom salt to the knee and foot her swelling has gone away, except for in the medial knee. She has pain now with squatting, stair ambulation, and [place] walks [place] She denies pain with walking short distances (2 blocks) and grocery store shopping. Prior Treatments and Tests She states X-rays show no bony changes. Treatment Goals Patient/Caregiver Goals Pt goal is to remove the pain and learn what she needs to do to keep her knee healthy. Prior Functional Status Baseline Function- ADL's Independent Baseline Function- Mobility Independent Baseline Function- Recreation/Hobbies Walked 3 miles without pain. Current Functional Impairments (Reported) Functional Limitations- ADL's R medial knee pain with stair ambulation and squatting. Functional Limitations- Mobility/Gait Unable to walk long distances now due to swelling in the feet. 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 PT-OP-C Subjective Start: 05/16/18 16:32 Freq: Status: Active Protocol: Document 05/20/18 08:15 LRN (Rec: 05/20/18 17:46 LRN [id number]) Patient Questionnaires ABC- Activity Specific Balance Confidence Scale ABC Score 62.5 ABC Functional Impairment 20 to <40% Impaired (Score 61- 80) OP-PT Pain Assessment Location R knee Pain Location Details Medial infrapatellar fat pad Intensity 3 Scale Used Numeric (1 - 10) Description Aching Frequency Intermittent Pain Aggravating Factors Walking Stair Climbing Other Pain Aggravating Factors Squatting Pain Alleviating Factors Rest Patient Stated Pain Goal Alleviate the pain PT-OP-D Balance Start: 05/16/18 16:32 Freq: Status: Active Protocol: Document 05/20/18 08:15 LRN (Rec: 05/20/18 17:46 LRN [id number]) Balance Tests Other Other Balance Tests Performed Pt was able to perform Single Leg Stance (SLS) without onset of pain. PT-OP-F Manual Assessment Start: 05/16/18 16:32 Freq: Status: Active Protocol: Document 05/20/18 08:15 LRN (Rec: 05/20/18 17:46 LRN [id number]) Manual Assessments Soft Tissue Assessment Soft Tissue Mobility Assessment Tenderness and swelling is present at R knee medial infrapatellar fat pad. Joint Mobility Assessment Joint Mobility Assessment R knee - normal. PT-OP-H Neuro Start: 05/16/18 16:32 Freq: Status: Active Protocol: Document 05/20/18 08:15 LRN (Rec: 05/20/18 17:46 LRN [id number]) Sensation Evaluation Gross Sensation Gross Sensation WNL Deep Tendon Reflex & Clonus Assessment Deep Tendon Reflex Bilateral Achilles Deep Tendon Reflex 3+ Normal But Brisk Bilateral Patellar Deep Tendon Reflex 3+ Normal But Brisk PT-OP-J Posture/Palpation/Skin Start: 05/16/18 16:32 Freq: Status: Active Protocol: Document 05/20/18 08:15 LRN (Rec: 05/20/18 17:46 LRN [id number]) Posture Evaluation Position Standing Evaluation View All positions Head/C-Spine Posture Forward Head Palpation Assessment Location Patella Palpation Location Medial infrapatellar Bursa Palpation Details Mild R knee pain with inferior /superior gliding. Decreased lateral mobility. Mild R medial patellar bursa tenderness Leg length Palpation Details Supine: Equal Long sit: R long. ASIS Palpation Location Bilateral ASIS Palpation Details ASIS>Umbilicus: 16 cm right, 14.5 cm left. Outflare of R ASIS. Lumbar Spine Palpation Location L2, L3, L5: PA [place] of spinous process Palpation Findings Muscle Guarding Tenderness PT-OP-K Range of Motion Start: 05/16/18 16:32 Freq: Status: Active Protocol: Document 05/20/18 08:15 LRN (Rec: 05/20/18 17:46 LRN [id number]) Hip Goniometric Range of Motion Hip Measured in Degrees Left Passive Testing Position Supine Straight Leg Raise 85 Internal Rotation 45 External Rotation 40 Right Passive Testing Position Supine Straight Leg Raise 95 Internal Rotation 45 External Rotation 55 Knee Goniometric Range of Motion Knee Measured in Degrees Left Knee ROM WFL Yes Right Knee ROM WFL Yes PT-OP-L Special Tests Start: 05/16/18 16:32 Freq: Status: Active Protocol: Document 05/20/18 08:15 LRN (Rec: 05/20/18 17:46 LRN [id number]) Special Tests Knee Special Tests Patellar Grind Test Test Results R knee: Positive Comments 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 Marquise's Sign Test Results R knee: Positive Comments Indicates swelling present Apley's Compression Test Results R knee: Negative Varus- 25 Degrees Test Results R knee: Negative Valgus- 25 Degrees Test Results R knee: Negative Posterior Draw Test Results R knee: Negative Mica Test Test Results R knee: Negative Shari's Test Results R knee: Negative Bounce Home Test Results R knee: Negative Anterior Draw Test Results R knee: Negative PT-OP-M Strength Start: 05/16/18 16:32 Freq: Status: Active Protocol: Document 05/20/18 08:15 LRN (Rec: 05/20/18 17:46 LRN [id number]) Hip Strength Hip Manual Muscle Testing Left Extension (S1) 4 Good Adduction 4- Good- Comments Strength is 5/5 except as indicated above. Right Extension (S1) 4 Good Adduction 4- Good- Comments Strength is 5/5 except as indicated above. Knee Strength Knee Manual Muscle Testing Left Reason Not Measured WFL Right Reason Not Measured WFL Ankle/Foot Strength Ankle and Foot Manual Muscle Testing Left Reason Not Measured WFL Right Reason Not Measured WFL PT-OP-Q Treatments Start: 05/16/18 16:32 Freq: Status: Active Protocol: Document 05/20/18 08:15 LRN (Rec: 05/20/18 17:46 LRN [id number]) Self-Care/Home Management Treatment Education Patient Education Home Exercise Program Activities Self-Care/Home Management Activities I/S pt in HEP: LUCIANO and Hip AD strengthening. PT-OP-T Assessment and Plan Start: 05/16/18 16:32 Freq: Status: Active Protocol: Document 05/20/18 08:15 LRN (Rec: 05/20/18 17:46 LRN [id number]) Physical Therapy Assessment Rehab Potential Rehabilitation Potential Excellent Evaluation Complexity Number of Personal Factors/Comorbidities 1-2 Number of Body Systems Impaired 4 or More Clinical Presentation at Evaluation Stable Impairments Impairments Edema Pain ROM Strength Goals Four Impairment Decreased R hip mobility and strength Supervisor Wrapping Room Goal (LTG) Improve R hip mobility and strength with improved function per ABC score of 79 or less. Three Impairment R knee edema Short Term Goal (STG) Pt will be educated in self care edema management. STG Duration 05/30/18 Two Impairment Pain limiting stair ambulatory ability Chcf Goal (LTG) Pt will be able to ambulate stairs without pain. LTG Duration 07/18/18 One Impairment Lacks self assisted exercise program Supervisor Wrapping Room Goal (LTG) Pt will be independent with a self care HEP. LTG Duration 07/18/18 Assessment Summary Assessment Pt presents with R swelling of the R infrapatellar fat pad and signs of chondromalacia of the knee, as well as decreased hip mobility and strength, resulting in knee pain and decreased functional ability. The pt will benefit from skilled physical therapy for modality treatment to reduce swelling, ROM and strengthening ex's, education and training in self care for edema and pain management and placement on a HEP for self care. Physical Therapy Plan Frequency and Duration Frequency of Treatment 2x/Week Plan of Care Start Date 05/20/18 Plan of Care End Date 07/18/18 Therapeutic Interventions Therapeutic Interventions Aquatic Therapy Balance Training Gait Training Home Exercise Program Joint Mobilizations Manual Therapy Neuromuscular Re-education Self-Care/Home Management Soft Tissue Mobilization Taping Therapeutic Exercises Modalities Cold Pack/Ice Massage Hot Packs Iontophoresis Ultrasound Other Therapeutic Interventions Iontophoresis: 4 mg/mL of Dexamethasone with Sodium Phosphate. Next Visit Focus/Plan Next Note Type Treatment Note Next Visit Plan Ultrasound to the R medial knee, f/b hip ROM and strengthening ex's, gait and stair ambulation training as needed, JMT for outflared R innominate, followed by pelvic and core stabilization and L/ S to decrease pain. K-taping of the R patella for condromalacia if beneficial to decrease pain.
--- NOTE | 2018-05-29 16:36 | PT.OPPOC ---
Current Diagnoses Pain in right knee (05/20/18) Muscle weakness (generalized) (05/20/18) Provider Visit Care Team Role Provider Type Juan J Soriano MD Attending Provider Physician Primary Care Provider Specialty: Family Practice Address: [address] [place] [address], [id number] Email: 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 Three Impairment R knee edema Short Term Goal (STG) Pt will be educated in self care edema management. STG Duration 05/30/18 Two Impairment Pain limiting stair ambulatory ability Senior Living Goal (LTG) Pt will be able to ambulate stairs without pain. LTG Duration 07/18/18 One Impairment Lacks self senior living exercise program Business Banking Sales Assistant Goal (LTG) Pt will be independent with a self care HEP. LTG Duration 07/18/18 Assessment Summary Assessment Pt presents with R swelling of the R infrapatellar fat pad and signs of chondromalacia of the knee, as well as decreased hip mobility and strength, resulting in knee pain and decreased functional ability. The pt will benefit from skilled physical therapy for modality treatment to reduce swelling, ROM and strengthening ex's, education and training in self care for edema and pain management and placement on a HEP for self care. Physical Therapy Plan Frequency and Duration Frequency of Treatment 2x/Week Plan of Care Start Date 05/20/18 Plan of Care End Date 07/18/18 Therapeutic Interventions Therapeutic Interventions Aquatic Therapy Balance Training Gait Training Home Exercise Program Joint Mobilizations Manual Therapy Neuromuscular Re-education Self-Care/Home Management Soft Tissue Mobilization Taping Therapeutic Exercises Modalities Cold Pack/Ice Massage Hot Packs Iontophoresis Ultrasound Other Therapeutic Interventions Iontophoresis: 4 mg/mL of Dexamethasone with Sodium Phosphate. Next Visit Focus/Plan Next Note Type Treatment Note Next Visit Plan Ultrasound to the R medial knee, f/b hip ROM and strengthening ex's, gait and stair ambulation training as needed, JMT for outflared R innominate, followed by pelvic and core stabilization and L/ S to decrease pain. K-taping of the R patella for condromalacia if beneficial to decrease pain. Plan of Care Dates Plan of Care Start Date 05/20/18 Plan of Care End Date 07/18/18 Please Sign and Return: I have reviewed this Plan of Care and certify that the skilled therapy services above are required to meet the patient?s needs. Physician Signature Date Printed Name and Credentials Clinical Instructor Signature Printed Name and Credentials
--- NOTE | 2018-06-17 10:00 | PT.OTN ---
Current Diagnoses Pain in right knee (06/17/18) Physical Therapy Treatment Note PT-OP-A Visit Information Start: 05/16/18 16:32 Freq: Status: Active Protocol: Document 06/17/18 08:27 LRN (Rec: 06/17/18 09:18 LRN [id number]) Out-Patient Physical Therapy Visit Information Visit Information Visit Type Initial Evaluation Visit Start Time 08:27 Visit Stop Time 09:19 Total Visit Minutes 52 Visit Number 1 Number of WOOD SCALER Visits 0 Evaluation Information Evaluation Date 05/20/18 PT-OP-B Current Condition Start: 05/16/18 16:32 Freq: Status: Active Protocol: Document 05/20/18 08:15 LRN (Rec: 05/20/18 17:46 LRN [id number]) Current Condition History of Current Condition Onset Date 1-2 months ago. Current Complaints Pain & swelling in R medial knee, general swelling in R foot, ankle, leg. History of Current Condition Pt reports over the summer she noted swelling in the R foot and lower leg pain that progressed to swelling in the lateral aspect of the R knee, changing over time to the medial aspect of the R knee. She thinks she may have hit her R medial knee a couple times but can't recall for sure. She states with use of Epsom salt to the knee and foot her swelling has gone away, except for in the medial knee. She has pain now with squatting, stair ambulation, and long walks ([place] She denies pain with walking short distances (2 blocks) and grocery store shopping. Prior Treatments and Tests She states X-rays show no bony changes. Treatment Goals Patient/Caregiver Goals Pt goal is to remove the pain and learn what she needs to do to keep her knee healthy. Prior Functional Status Baseline Function- ADL's Independent Baseline Function- Mobility Independent Baseline Function- Recreation/Hobbies Walked 3 miles without pain. Current Functional Impairments (Reported) Functional Limitations- ADL's R medial knee pain with stair ambulation and squatting. Functional Limitations- Mobility/Gait Unable to walk long distances now due to swelling in the feet. 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 PT-OP-C Subjective Start: 05/16/18 16:32 Freq: Status: Active Protocol: Document 06/17/18 08:27 LRN (Rec: 06/17/18 09:18 LRN [id number]) OP-PT Subjective Patient Comments Patient Comments R knee pain almost gone. Sometimes it aches. Feet are still swollen. PT-OP-D Balance Start: 05/16/18 16:32 Freq: Status: Active Protocol: Document 05/20/18 08:15 LRN (Rec: 05/20/18 17:46 LRN [id number]) Balance Tests Other Other Balance Tests Performed Pt was able to perform Single Leg Stance (SLS) without onset of pain. PT-OP-F Manual Assessment Start: 05/16/18 16:32 Freq: Status: Active Protocol: Document 05/20/18 08:15 LRN (Rec: 05/20/18 17:46 LRN [id number]) Manual Assessments Soft Tissue Assessment Soft Tissue Mobility Assessment Tenderness and swelling is present at R knee medial infrapatellar fat pad. Joint Mobility Assessment Joint Mobility Assessment R knee - normal. PT-OP-H Neuro Start: 05/16/18 16:32 Freq: Status: Active Protocol: Document 05/20/18 08:15 LRN (Rec: 05/20/18 17:46 LRN [id number]) Sensation Evaluation Gross Sensation Gross Sensation WNL Deep Tendon Reflex & Clonus Assessment Deep Tendon Reflex Bilateral Achilles Deep Tendon Reflex 3+ Normal But Brisk Bilateral Patellar Deep Tendon Reflex 3+ Normal But Brisk PT-OP-J Posture/Palpation/Skin Start: 05/16/18 16:32 Freq: Status: Active Protocol: Document 05/20/18 08:15 LRN (Rec: 05/20/18 17:46 LRN [id number]) Posture Evaluation Position Standing Evaluation View All positions Head/C-Spine Posture Forward Head Palpation Assessment Location Patella Palpation Location Medial infrapatellar Bursa Palpation Details Mild R knee pain with inferior /superior gliding. Decreased lateral mobility. Mild R medial patellar bursa tenderness Leg length Palpation Details Supine: Equal Long sit: R long. ASIS Palpation Location Bilateral ASIS Palpation Details ASIS>Umbilicus: 16 cm right, 14.5 cm left. Outflare of R ASIS. Lumbar Spine Palpation Location L2, L3, L5: PA [place] of spinous process Palpation Findings Muscle Guarding Tenderness PT-OP-K Range of Motion Start: 05/16/18 16:32 Freq: Status: Active Protocol: Document 05/20/18 08:15 LRN (Rec: 05/20/18 17:46 LRN [id number]) Hip Goniometric Range of Motion Hip Measured in Degrees Left Passive Testing Position Supine Straight Leg Raise 85 Internal Rotation 45 External Rotation 40 Right Passive Testing Position Supine Straight Leg Raise 95 Internal Rotation 45 External Rotation 55 Knee Goniometric Range of Motion Knee Measured in Degrees Left Knee ROM WFL Yes Right Knee ROM WFL Yes PT-OP-L Special Tests Start: 05/16/18 16:32 Freq: Status: Active Protocol: Document 05/20/18 08:15 LRN (Rec: 05/20/18 17:46 LRN [id number]) Special Tests Knee Special Tests Patellar Grind Test Test Results R knee: Positive Comments 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 Marquise's Sign Test Results R knee: Positive Comments Indicates swelling present Apley's Compression Test Results R knee: Negative Varus- 25 Degrees Test Results R knee: Negative Valgus- 25 Degrees Test Results R knee: Negative Posterior Draw Test Results R knee: Negative Mica Test Test Results R knee: Negative Shari's Test Results R knee: Negative Bounce Home Test Results R knee: Negative Anterior Draw Test Results R knee: Negative PT-OP-M Strength Start: 05/16/18 16:32 Freq: Status: Active Protocol: Document 05/20/18 08:15 LRN (Rec: 05/20/18 17:46 LRN [id number]) Hip Strength Hip Manual Muscle Testing Left Extension (S1) 4 Good Adduction 4- Good- Comments Strength is 5/5 except as indicated above. Right Extension (S1) 4 Good Adduction 4- Good- Comments Strength is 5/5 except as indicated above. Knee Strength Knee Manual Muscle Testing Left Reason Not Measured WFL Right Reason Not Measured WFL Ankle/Foot Strength Ankle and Foot Manual Muscle Testing Left Reason Not Measured WFL Right Reason Not Measured WFL PT-OP-Q Treatments Start: 05/16/18 16:32 Freq: Status: Active Protocol: Document 06/17/18 08:27 LRN (Rec: 06/17/18 09:18 LRN [id number]) Therapeutic Exercises Supine Exercises DLS Supine Exercise Name Heel slides - bilateral & single Comments Pt unable to perform ex properly, therefore discontinued Active hip AD Supine Exercise Name hip 90 deg's flexed and in a V pattern of AB/AD Side bilateral Reps/Minutes 2 Comments Pt unable to perform ex properly, therefore discontinued Hip AD Supine Exercise Name Isometric Side bilateral Equipment Used Ball Reps/Minutes 10x holding 10 sec Sitting Exercises Abdominal Sitting Exercise Name Isometric Hands/Knee push Side bilateral Comments Pt able to feels abdominal tightening. Standing Exercises Abdominal strengthening Standing Exercise Name Isometric Comments Pt unable to perform ex properly, therefore discontinued Self-Care/Home Management Treatment Education Other Education Discussed anatomy and physiology of swelling of extremities. Discussed options of compression hose for pt to wear for work. Issued name and light compression factor with recommendation of knee or thigh high Jobst stocking with discussion of other vendor stockings. Activities Self-Care/Home Management Activities Instructed pt in HEP: Isometric hip AD ex ball squeeze & abdominal tightening with heel slides and sitting hands/knees push. PT-OP-R Modalities Start: 05/16/18 16:32 Freq: Status: Active Protocol: Document 06/17/18 08:27 LRN (Rec: 06/17/18 09:35 LRN [id number]) Ultrasound Therapy Treatment Right Knee Treatment Duration (minutes) 8 Patient Position Supine Coupling Medium Ultrasound Gel Applicator Size (cm2) 10 Frequency Setting (mHz) 1 Duty Cycle 50% Intensity Setting (w/cm2) 1.0 Comments Medial and lateral aspect of the knee PT-OP-T Assessment and Plan Start: 05/16/18 16:32 Freq: Status: Active Protocol: Document 06/17/18 08:27 LRN (Rec: 06/17/18 09:18 LRN [id number]) Physical Therapy Assessment Goals Four Impairment Decreased R hip mobility and strength Exceptional Children'S Teacher Goal (LTG) Improve R hip mobility and strength with improved function per ABC score of 79 or less. LTG Duration 06/30/09 (06/17/18: Started carmen hip AD strengthening) Three Impairment R knee edema Short Term Goal (STG) Pt will be educated in self care edema management. STG Duration 05/30/18 (06/17/18: Partially met - educated pt in anatomy) Two Impairment Pain limiting stair ambulatory ability [facility] Goal (LTG) Pt will be able to ambulate stairs without pain. LTG Duration 07/18/18 One Impairment Lacks self skilled nursing exercise program [facility] Goal (LTG) Pt will be independent with a self care HEP. LTG Duration 07/18/18 (06/17/18: Started HEP) Progress Towards Goals Progress Towards Goals Progressing Toward Goals Progress Comments Goal #1: HEP progressing. Goal #2: Strengthening started , pain is decreased at the R knee. Goal #3: Edema decreased. Goal #4: R hip strengthening started, mobility not addressed yet. Assessment Summary Assessment Pt presents with decreased swelling of the R infrapatellar fat pad and today no signs of chondromalacia of the knee. Unable to address decreased hip mobility due to poor awareness of her core with hip strengthening. Further training is needed for core stabilization to stabilize pelvis and to start hip strengthening. Physical Therapy Plan Frequency and Duration Frequency of Treatment 2x/Week Plan of Care Start Date 05/20/18 Plan of Care End Date 07/18/18 Next Visit Focus/Plan Next Note Type Treatment Note Next Visit Plan Assess response to Ultrasound to the R medial knee. Start HEP of hip ROM and hip strengthening & pelvic and core stabilization and L/S to decrease pain. Address gait and stair ambulation. 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
--- NOTE | 2018-06-24 10:15 | PT.OTN ---
Current Diagnoses Pain in right knee (06/24/18) Physical Therapy Treatment Note PT-OP-A Visit Information Start: 05/16/18 16:32 Freq: Status: Active Protocol: Document 06/24/18 09:04 LRN (Rec: 06/24/18 09:46 LRN [id number]) Out-Patient Physical Therapy Visit Information Visit Information Visit Type Initial Evaluation Visit Start Time 09:04 Visit Stop Time 09:45 Total Visit Minutes 41 Visit Number 3 Number of ROADING ENGINEER Visits 0 Evaluation Information Evaluation Date 05/20/18 PT-OP-B Current Condition Start: 05/16/18 16:32 Freq: Status: Active Protocol: Document 05/20/18 08:15 LRN (Rec: 05/20/18 17:46 LRN [id number]) Current Condition History of Current Condition Onset Date 1-2 months ago. Current Complaints Pain & swelling in R medial knee, general swelling in R foot, ankle, leg. History of Current Condition Pt reports over the summer she noted swelling in the R foot and lower leg pain that progressed to swelling in the lateral aspect of the R knee, changing over time to the medial aspect of the R knee. She thinks she may have hit her R medial knee a couple times but can't recall for sure. She states with use of Epsom salt to the knee and foot her swelling has gone away, except for in the medial knee. She has pain now with squatting, stair ambulation, and long walks ([place] She denies pain with walking short distances (2 blocks) and grocery store shopping. Prior Treatments and Tests She states X-rays show no bony changes. Treatment Goals Patient/Caregiver Goals Pt goal is to remove the pain and learn what she needs to do to keep her knee healthy. Prior Functional Status Baseline Function- ADL's Independent Baseline Function- Mobility Independent Baseline Function- Recreation/Hobbies Walked 3 miles without pain. Current Functional Impairments (Reported) Functional Limitations- ADL's R medial knee pain with stair ambulation and squatting. Functional Limitations- Mobility/Gait Unable to walk long distances now due to swelling in the feet. 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 PT-OP-C Subjective Start: 05/16/18 16:32 Freq: Status: Active Protocol: Document 06/24/18 09:04 LRN (Rec: 06/24/18 09:46 LRN [id number]) OP-PT Subjective Patient Comments Patient Comments Slipped on the snow and fell and again felt pain around the medial/superior/inferior patella. After a couple days went away. At work only swelling feet. PT-OP-D Balance Start: 05/16/18 16:32 Freq: Status: Active Protocol: Document 05/20/18 08:15 LRN (Rec: 05/20/18 17:46 LRN [id number]) Balance Tests Other Other Balance Tests Performed Pt was able to perform Single Leg Stance (SLS) without onset of pain. PT-OP-F Manual Assessment Start: 05/16/18 16:32 Freq: Status: Active Protocol: Document 05/20/18 08:15 LRN (Rec: 05/20/18 17:46 LRN [id number]) Manual Assessments Soft Tissue Assessment Soft Tissue Mobility Assessment Tenderness and swelling is present at R knee medial infrapatellar fat pad. Joint Mobility Assessment Joint Mobility Assessment R knee - normal. PT-OP-H Neuro Start: 05/16/18 16:32 Freq: Status: Active Protocol: Document 05/20/18 08:15 LRN (Rec: 05/20/18 17:46 LRN [id number]) Sensation Evaluation Gross Sensation Gross Sensation WNL Deep Tendon Reflex & Clonus Assessment Deep Tendon Reflex Bilateral Achilles Deep Tendon Reflex 3+ Normal But Brisk Bilateral Patellar Deep Tendon Reflex 3+ Normal But Brisk PT-OP-J Posture/Palpation/Skin Start: 05/16/18 16:32 Freq: Status: Active Protocol: Document 05/20/18 08:15 LRN (Rec: 05/20/18 17:46 LRN [id number]) Posture Evaluation Position Standing Evaluation View All positions Head/C-Spine Posture Forward Head Palpation Assessment Location Patella Palpation Location Medial infrapatellar Bursa Palpation Details Mild R knee pain with inferior /superior gliding. Decreased lateral mobility. Mild R medial patellar bursa tenderness Leg length Palpation Details Supine: Equal Long sit: R long. ASIS Palpation Location Bilateral ASIS Palpation Details ASIS>Umbilicus: 16 cm right, 14.5 cm left. Outflare of R ASIS. Lumbar Spine Palpation Location L2, L3, L5: PA [place] of spinous process Palpation Findings Muscle Guarding Tenderness PT-OP-K Range of Motion Start: 05/16/18 16:32 Freq: Status: Active Protocol: Document 05/20/18 08:15 LRN (Rec: 05/20/18 17:46 LRN [id number]) Hip Goniometric Range of Motion Hip Measured in Degrees Left Passive Testing Position Supine Straight Leg Raise 85 Internal Rotation 45 External Rotation 40 Right Passive Testing Position Supine Straight Leg Raise 95 Internal Rotation 45 External Rotation 55 Knee Goniometric Range of Motion Knee Measured in Degrees Left Knee ROM WFL Yes Right Knee ROM WFL Yes PT-OP-L Special Tests Start: 05/16/18 16:32 Freq: Status: Active Protocol: Document 05/20/18 08:15 LRN (Rec: 05/20/18 17:46 LRN [id number]) Special Tests Knee Special Tests Patellar Grind Test Test Results R knee: Positive Comments 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 Marquise's Sign Test Results R knee: Positive Comments Indicates swelling present Apley's Compression Test Results R knee: Negative Varus- 25 Degrees Test Results R knee: Negative Valgus- 25 Degrees Test Results R knee: Negative Posterior Draw Test Results R knee: Negative Mica Test Test Results R knee: Negative Shari's Test Results R knee: Negative Bounce Home Test Results R knee: Negative Anterior Draw Test Results R knee: Negative PT-OP-M Strength Start: 05/16/18 16:32 Freq: Status: Active Protocol: Document 05/20/18 08:15 LRN (Rec: 05/20/18 17:46 LRN [id number]) Hip Strength Hip Manual Muscle Testing Left Extension (S1) 4 Good Adduction 4- Good- Comments Strength is 5/5 except as indicated above. Right Extension (S1) 4 Good Adduction 4- Good- Comments Strength is 5/5 except as indicated above. Knee Strength Knee Manual Muscle Testing Left Reason Not Measured WFL Right Reason Not Measured WFL Ankle/Foot Strength Ankle and Foot Manual Muscle Testing Left Reason Not Measured WFL Right Reason Not Measured WFL PT-OP-Q Treatments Start: 05/16/18 16:32 Freq: Status: Active Protocol: Document 06/24/18 09:04 LRN (Rec: 06/24/18 09:46 LRN [id number]) Therapeutic Exercises Supine Exercises SLR Supine Exercise Name 12 & 2 O'clock with DLS training Reps/Minutes 15' Comments Much, much training needed for DLS before SLR DLS Supine Exercise Name Lower Trunk Rotation Reps/Minutes 9' Comments Focus on L rotation Standing Exercises Abdominal strengthening Standing Exercise Name Trunk rotation left Resistance None and with Lev 2 T-Band Reps/Minutes 15' Comments Much training and physical cuing needed Self-Care/Home Management Treatment Education Patient Education Home Exercise Program Activities Self-Care/Home Management Activities Issued Lev 2 Latex Free T-Band and Instructed pt in standing lower trunk rotation. PT-OP-R Modalities Start: 05/16/18 16:32 Freq: Status: Active Protocol: Document 06/17/18 08:27 LRN (Rec: 06/17/18 09:35 LRN [id number]) Ultrasound Therapy Treatment Right Knee Treatment Duration (minutes) 8 Patient Position Supine Coupling Medium Ultrasound Gel Applicator Size (cm2) 10 Frequency Setting (mHz) 1 Duty Cycle 50% Intensity Setting (w/cm2) 1.0 Comments Medial and lateral aspect of the knee PT-OP-T Assessment and Plan Start: 05/16/18 16:32 Freq: Status: Active Protocol: Document 06/24/18 09:04 LRN (Rec: 06/24/18 09:46 LRN [id number]) Physical Therapy Assessment Goals Four Impairment Decreased R hip mobility and strength Three Impairment R knee edema Short Term Goal (STG) Pt will be educated in self care edema management. STG Duration 05/30/18 GOAL MET. Two Impairment Pain limiting stair ambulatory ability Sole Stitcher Hand Goal (LTG) Pt will be able to ambulate stairs without pain. LTG Duration 07/18/18 (06/24/18: GOAL MET) One Impairment Lacks self detention exercise program Progress Towards Goals Progress Towards Goals Progressing Toward Goals Progress Comments Goal #1: HEP progressing. Goal #2: GOAL MET (no pain with stair or gait ambulation) . Goal #3: Pt reports edema at R knee decreased, visual inspection not made due to pt did not have shorts to wear. Goal #4: Mobility not addressed, R hip strengthening started but delayed due to poor core stab. Pain off/on at the R knee based on fall yesterday. Assessment Summary Assessment + response to US with less reported swelling of the R infrapatellar fat pad today even after fall yesterday. No problem with stairs and symmetrical pelvic positioning . L leg measure .5 cm longer in supine with R 65.3 & L 65.8 cm (ASIS>Medial malleolus). Unable to address decreased hip mobility due to poor awareness of her core with hip strengthening although much improved awareness by end of therapy. Further training is needed for core stabilization to stabilize pelvis and to start hip strengthening. Physical Therapy Plan Frequency and Duration Frequency of Treatment 2x/Week Plan of Care Start Date 05/20/18 Plan of Care End Date 07/18/18 Next Visit Focus/Plan Next Note Type Treatment Note Next Visit Plan Check/visual for edema at R knee, start HEP of hip ROM, review hip strengthening & pelvic/core stabilization and L/S to decrease pain. 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
--- NOTE | 2018-07-01 11:53 | PT.OTN ---
Current Diagnoses Pain in right knee (07/01/18) Physical Therapy Treatment Note PT-OP-A Visit Information Start: 05/16/18 16:32 Freq: Status: Active Protocol: Document 07/01/18 10:35 LRN (Rec: 07/01/18 11:37 LRN [id number]) Out-Patient Physical Therapy Visit Information Visit Information Visit Type Initial Evaluation Visit Start Time 10:35 Visit Stop Time 11:33 Total Visit Minutes 58 Visit Number 3 Number of ETL CONSULTANT Visits 0 Evaluation Information Evaluation Date 05/20/18 PT-OP-B Current Condition Start: 05/16/18 16:32 Freq: Status: Active Protocol: Document 05/20/18 08:15 LRN (Rec: 05/20/18 17:46 LRN [id number]) Current Condition History of Current Condition Onset Date 1-2 months ago. Current Complaints Pain & swelling in R medial knee, general swelling in R foot, ankle, leg. History of Current Condition Pt reports over the summer she noted swelling in the R foot and lower leg pain that progressed to swelling in the lateral aspect of the R knee, changing over time to the medial aspect of the R knee. She thinks she may have hit her R medial knee a couple times but can't recall for sure. She states with use of Epsom salt to the knee and foot her swelling has gone away, except for in the medial knee. She has pain now with squatting, stair ambulation, and long walks [place] She denies pain with walking short distances (2 blocks) and grocery store shopping. Prior Treatments and Tests She states X-rays show no bony changes. Treatment Goals Patient/Caregiver Goals Pt goal is to remove the pain and learn what she needs to do to keep her knee healthy. Prior Functional Status Baseline Function- ADL's Independent Baseline Function- Mobility Independent Baseline Function- Recreation/Hobbies Walked 3 miles without pain. Current Functional Impairments (Reported) Functional Limitations- ADL's R medial knee pain with stair ambulation and squatting. Functional Limitations- Mobility/Gait Unable to walk long distances now due to swelling in the feet. 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 PT-OP-C Subjective Start: 05/16/18 16:32 Freq: Status: Active Protocol: Document 07/01/18 10:35 LRN (Rec: 07/01/18 11:37 LRN [id number]) OP-PT Subjective Patient Comments Patient Comments Requests use of ultrasound on knees because they have been hurting for a couple days. Worked and extra day 2 days ago. L knee is better, problem is the R knee. PT-OP-D Balance Start: 05/16/18 16:32 Freq: Status: Active Protocol: Document 05/20/18 08:15 LRN (Rec: 05/20/18 17:46 LRN [id number]) Balance Tests Other Other Balance Tests Performed Pt was able to perform Single Leg Stance (SLS) without onset of pain. PT-OP-F Manual Assessment Start: 05/16/18 16:32 Freq: Status: Active Protocol: Document 05/20/18 08:15 LRN (Rec: 05/20/18 17:46 LRN [id number]) Manual Assessments Soft Tissue Assessment Soft Tissue Mobility Assessment Tenderness and swelling is present at R knee medial infrapatellar fat pad. Joint Mobility Assessment Joint Mobility Assessment R knee - normal. PT-OP-H Neuro Start: 05/16/18 16:32 Freq: Status: Active Protocol: Document 05/20/18 08:15 LRN (Rec: 05/20/18 17:46 LRN [id number]) Sensation Evaluation Gross Sensation Gross Sensation WNL Deep Tendon Reflex & Clonus Assessment Deep Tendon Reflex Bilateral Achilles Deep Tendon Reflex 3+ Normal But Brisk Bilateral Patellar Deep Tendon Reflex 3+ Normal But Brisk PT-OP-J Posture/Palpation/Skin Start: 05/16/18 16:32 Freq: Status: Active Protocol: Document 05/20/18 08:15 LRN (Rec: 05/20/18 17:46 LRN [id number]) Posture Evaluation Position Standing Evaluation View All positions Head/C-Spine Posture Forward Head Palpation Assessment Location Patella Palpation Location Medial infrapatellar Bursa Palpation Details Mild R knee pain with inferior /superior gliding. Decreased lateral mobility. Mild R medial patellar bursa tenderness Leg length Palpation Details Supine: Equal Long sit: R long. ASIS Palpation Location Bilateral ASIS Palpation Details ASIS>Umbilicus: 16 cm right, 14.5 cm left. Outflare of R ASIS. Lumbar Spine Palpation Location L2, L3, L5: PA [place] of spinous process Palpation Findings Muscle Guarding Tenderness PT-OP-K Range of Motion Start: 05/16/18 16:32 Freq: Status: Active Protocol: Document 05/20/18 08:15 LRN (Rec: 05/20/18 17:46 LRN [id number]) Hip Goniometric Range of Motion Hip Measured in Degrees Left Passive Testing Position Supine Straight Leg Raise 85 Internal Rotation 45 External Rotation 40 Right Passive Testing Position Supine Straight Leg Raise 95 Internal Rotation 45 External Rotation 55 Knee Goniometric Range of Motion Knee Measured in Degrees Left Knee ROM WFL Yes Right Knee ROM WFL Yes PT-OP-L Special Tests Start: 05/16/18 16:32 Freq: Status: Active Protocol: Document 05/20/18 08:15 LRN (Rec: 05/20/18 17:46 LRN [id number]) Special Tests Knee Special Tests Patellar Grind Test Test Results R knee: Positive Comments 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 Marquise's Sign Test Results R knee: Positive Comments Indicates swelling present Apley's Compression Test Results R knee: Negative Varus- 25 Degrees Test Results R knee: Negative Valgus- 25 Degrees Test Results R knee: Negative Posterior Draw Test Results R knee: Negative Mica Test Test Results R knee: Negative Shari's Test Results R knee: Negative Bounce Home Test Results R knee: Negative Anterior Draw Test Results R knee: Negative PT-OP-M Strength Start: 05/16/18 16:32 Freq: Status: Active Protocol: Document 05/20/18 08:15 LRN (Rec: 05/20/18 17:46 LRN [id number]) Hip Strength Hip Manual Muscle Testing Left Extension (S1) 4 Good Adduction 4- Good- Comments Strength is 5/5 except as indicated above. Right Extension (S1) 4 Good Adduction 4- Good- Comments Strength is 5/5 except as indicated above. Knee Strength Knee Manual Muscle Testing Left Reason Not Measured WFL Right Reason Not Measured WFL Ankle/Foot Strength Ankle and Foot Manual Muscle Testing Left Reason Not Measured WFL Right Reason Not Measured WFL PT-OP-Q Treatments Start: 05/16/18 16:32 Freq: Status: Active Protocol: Document 07/01/18 10:35 LRN (Rec: 07/01/18 11:37 LRN [id number]) Therapeutic Exercises Supine Exercises Hands/Knees Push Supine Exercise Name Lower abdominal strengthening Side bilateral Resistance red T-Ball Reps/Minutes 10x Holding 10 sec's SLR Supine Exercise Name 12 & 2 O'clock with DLS training Reps/Minutes 13' Comments Some training needed for DLS before SLR DLS Supine Exercise Name Lower Trunk Rotation Reps/Minutes 5' Comments Focus on L rotation Sidelying Exercises Hip AD Sidelying Exercise Name L leg in front of R knee Side right Reps/Minutes 10x3 Sitting Exercises Trunk Rotation Side bilateral Resistance Lev 2 T-Band Reps/Minutes 15x2 ea Comments Trunk leaned when rotating to right Manual Therapy Treatment Joint Mobilizations SIJ Joint Correction for R innominate outflare Grade III Body Position Supine Reps/Duration 4' Comments MFR Self-Care/Home Management Treatment Education Patient Education Home Exercise Program Activities Self-Care/Home Management Activities Issued & Reviewed HEP: Sidelie Hip AD leg lifts. PT-OP-R Modalities Start: 05/16/18 16:32 Freq: Status: Active Protocol: Document 07/01/18 10:35 LRN (Rec: 07/01/18 11:37 LRN [id number]) Ultrasound Therapy Treatment Right Knee Treatment Duration (minutes) 8 Patient Position Supine Coupling Medium Ultrasound Gel Applicator Size (cm2) 10 Frequency Setting (mHz) 1 Duty Cycle 50% Intensity Setting (w/cm2) 1.0 Comments Medial and lateral aspect of the knee PT-OP-T Assessment and Plan Start: 05/16/18 16:32 Freq: Status: Active Protocol: Document 07/01/18 10:35 LRN (Rec: 07/01/18 11:37 LRN [id number]) Physical Therapy Assessment Goals Four Impairment Decreased R hip mobility and strength [facility] [employer] Process Goal (LTG) Improve R hip mobility and strength with improved function per ABC score of 79 or less. LTG Duration 06/30/09 (06/17/18: Started carmen hip AD strengthening) Three Impairment R knee edema Short Term Goal (STG) Pt will be educated in self care edema management. STG Duration 05/30/18 GOAL MET. Two Impairment Pain limiting stair ambulatory ability [facility] Goal (LTG) Pt will be able to ambulate stairs without pain. LTG Duration 07/18/18 (06/24/18: GOAL MET) One Impairment Lacks self [facility] exercise program Vice President Process Goal (LTG) Pt will be independent with a self care HEP. LTG Duration 07/18/18 (06/17/18: Started HEP) Progress Towards Goals Progress Towards Goals Progressing Toward Goals Progress Comments Goal #1: HEP progressing. Goal #2: GOAL MET (no pain with stair or gait ambulation) . Goal #3: GOAL intermittently MET. Today pt had knee pain that resolved after therapy. Goal #4: Mobility not addressed, R hip strengthening progressed due to improved core stab. Pain off/on at the R knee since fall 06/23/18. Assessment Summary Assessment Swelling present in R medial knee, but pt had + response to therapy. No R knee pain post therapy. Correction needed to normalize pelvic positioning. L leg .5 cm longer in supine. Did not address decreased hip mobility due to focus on progressing core stability with hip strengthening. Pt has improved awareness of her core today. Further training is needed for core stabilization to stabilize pelvis and progress hip strengthening and ROM. Physical Therapy Plan Frequency and Duration Frequency of Treatment 2x/Week Plan of Care Start Date 05/20/18 Plan of Care End Date 07/18/18 Next Visit Focus/Plan Next Note Type Treatment Note Next Visit Plan Check/visual for edema at R knee, start HEP of hip ROM, review hip strengthening (AD) and progress R knee medial quad strengthening. 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 Check if pt obtained knee support to minimize swelling at the knee.
--- NOTE | 2018-07-15 19:17 | PT.OTN ---
Current Diagnoses Pain in right knee (07/15/18) Physical Therapy Treatment Note PT-OP-A Visit Information Start: 05/16/18 16:32 Freq: Status: Active Protocol: Document 07/15/18 08:39 LRN (Rec: 07/15/18 09:05 LRN [id number]) Out-Patient Physical Therapy Visit Information Visit Information Visit Type Progress Note Visit Note Pt 24' late due to confusion with appt time. POC needed by 07/18/18. Visit Start Time 08:39 Visit Stop Time 08:58 Total Visit Minutes 19 Visit Number 5 Number of CIVIL LITIGATION ATTORNEY Visits 0 Evaluation Information Evaluation Date 05/20/18 PT-OP-B Current Condition Start: 05/16/18 16:32 Freq: Status: Active Protocol: Document 05/20/18 08:15 LRN (Rec: 05/20/18 17:46 LRN [id number]) Current Condition History of Current Condition Onset Date 1-2 months ago. Current Complaints Pain & swelling in R medial knee, general swelling in R foot, ankle, leg. History of Current Condition Pt reports over the summer she noted swelling in the R foot and lower leg pain that progressed to swelling in the lateral aspect of the R knee, changing over time to the medial aspect of the R knee. She thinks she may have hit her R medial knee a couple times but can't recall for sure. She states with use of Epsom salt to the knee and foot her swelling has gone away, except for in the medial knee. She has pain now with squatting, stair ambulation, and long walks [place] She denies pain with walking short distances (2 blocks) and grocery store shopping. Prior Treatments and Tests She states X-rays show no bony changes. Treatment Goals Patient/Caregiver Goals Pt goal is to remove the pain and learn what she needs to do to keep her knee healthy. Prior Functional Status Baseline Function- ADL's Independent Baseline Function- Mobility Independent Baseline Function- Recreation/Hobbies Walked 3 miles without pain. Current Functional Impairments (Reported) Functional Limitations- ADL's R medial knee pain with stair ambulation and squatting. Functional Limitations- Mobility/Gait Unable to walk long distances now due to swelling in the feet. 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 PT-OP-C Subjective Start: 05/16/18 16:32 Freq: Status: Active Protocol: Document 07/15/18 08:39 LRN (Rec: 07/15/18 19:11 LRN [id number]) OP-PT Subjective Patient Comments Patient Comments C/O R knee pain since working. Did not find use of compression socks helpful. Pt states she used the wrong word to describe her foot problems, it is not swelling but burning on the bottom of the feet that is the problem. PT-OP-D Balance Start: 05/16/18 16:32 Freq: Status: Active Protocol: Document 05/20/18 08:15 LRN (Rec: 05/20/18 17:46 LRN [id number]) Balance Tests Other Other Balance Tests Performed Pt was able to perform Single Leg Stance (SLS) without onset of pain. PT-OP-F Manual Assessment Start: 05/16/18 16:32 Freq: Status: Active Protocol: Document 05/20/18 08:15 LRN (Rec: 05/20/18 17:46 LRN [id number]) Manual Assessments Soft Tissue Assessment Soft Tissue Mobility Assessment Tenderness and swelling is present at R knee medial infrapatellar fat pad. Joint Mobility Assessment Joint Mobility Assessment R knee - normal. PT-OP-H Neuro Start: 05/16/18 16:32 Freq: Status: Active Protocol: Document 05/20/18 08:15 LRN (Rec: 05/20/18 17:46 LRN [id number]) Sensation Evaluation Gross Sensation Gross Sensation WNL Deep Tendon Reflex & Clonus Assessment Deep Tendon Reflex Bilateral Achilles Deep Tendon Reflex 3+ Normal But Brisk Bilateral Patellar Deep Tendon Reflex 3+ Normal But Brisk PT-OP-J Posture/Palpation/Skin Start: 05/16/18 16:32 Freq: Status: Active Protocol: Document 05/20/18 08:15 LRN (Rec: 05/20/18 17:46 LRN [id number]) Posture Evaluation Position Standing Evaluation View All positions Head/C-Spine Posture Forward Head Palpation Assessment Location Patella Palpation Location Medial infrapatellar Bursa Palpation Details Mild R knee pain with inferior /superior gliding. Decreased lateral mobility. Mild R medial patellar bursa tenderness Leg length Palpation Details Supine: Equal Long sit: R long. ASIS Palpation Location Bilateral ASIS Palpation Details ASIS>Umbilicus: 16 cm right, 14.5 cm left. Outflare of R ASIS. Lumbar Spine Palpation Location L2, L3, L5: PA [place] of spinous process Palpation Findings Muscle Guarding Tenderness PT-OP-K Range of Motion Start: 05/16/18 16:32 Freq: Status: Active Protocol: Document 05/20/18 08:15 LRN (Rec: 05/20/18 17:46 LRN [id number]) Hip Goniometric Range of Motion Hip Measured in Degrees Left Passive Testing Position Supine Straight Leg Raise 85 Internal Rotation 45 External Rotation 40 Right Passive Testing Position Supine Straight Leg Raise 95 Internal Rotation 45 External Rotation 55 Knee Goniometric Range of Motion Knee Measured in Degrees Left Knee ROM WFL Yes Right Knee ROM WFL Yes PT-OP-L Special Tests Start: 05/16/18 16:32 Freq: Status: Active Protocol: Document 05/20/18 08:15 LRN (Rec: 05/20/18 17:46 LRN [id number]) Special Tests Knee Special Tests Patellar Grind Test Test Results R knee: Positive Comments 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 Marquise's Sign Test Results R knee: Positive Comments Indicates swelling present Apley's Compression Test Results R knee: Negative Varus- 25 Degrees Test Results R knee: Negative Valgus- 25 Degrees Test Results R knee: Negative Posterior Draw Test Results R knee: Negative Mica Test Test Results R knee: Negative Shari's Test Results R knee: Negative Bounce Home Test Results R knee: Negative Anterior Draw Test Results R knee: Negative PT-OP-M Strength Start: 05/16/18 16:32 Freq: Status: Active Protocol: Document 05/20/18 08:15 LRN (Rec: 05/20/18 17:46 LRN [id number]) Hip Strength Hip Manual Muscle Testing Left Extension (S1) 4 Good Adduction 4- Good- Comments Strength is 5/5 except as indicated above. Right Extension (S1) 4 Good Adduction 4- Good- Comments Strength is 5/5 except as indicated above. Knee Strength Knee Manual Muscle Testing Left Reason Not Measured WFL Right Reason Not Measured WFL Ankle/Foot Strength Ankle and Foot Manual Muscle Testing Left Reason Not Measured WFL Right Reason Not Measured WFL PT-OP-Q Treatments Start: 05/16/18 16:32 Freq: Status: Active Protocol: Document 07/15/18 08:39 LRN (Rec: 07/15/18 09:05 LRN [id number]) Manual Therapy Treatment Manual Techniques MWM Type PA at L2,L3 on R to eliminate R knee pain. Body Location Lumbar Body Position Standing Comments I/S pt in self mob if pain returns. Pain eliminated at knee after US & MWM> PT-OP-R Modalities Start: 05/16/18 16:32 Freq: Status: Active Protocol: Document 07/15/18 08:39 LRN (Rec: 07/15/18 09:05 LRN [id number]) Ultrasound Therapy Treatment Right Knee Treatment Duration (minutes) 8 Patient Position Supine Coupling Medium Ultrasound Gel Applicator Size (cm2) 10 Frequency Setting (mHz) 1 Duty Cycle 50% Intensity Setting (w/cm2) 1.0 Comments Medial and lateral aspect of the knee PT-OP-T Assessment and Plan Start: 05/16/18 16:32 Freq: Status: Active Protocol: Document 07/15/18 08:39 LRN (Rec: 07/15/18 09:05 LRN [id number]) Physical Therapy Assessment Impairments Impairments Pain ROM Strength Goals Four Impairment Decreased R hip mobility and strength [facility] Goal (LTG) Improve R hip mobility and strength with improved function per ABC score of 79 or less. LTG Duration 06/30/09 (06/17/18: Started carmen hip AD strengthening) Three Impairment R knee edema Short Term Goal (STG) Pt will be educated in self care edema management. STG Duration 05/30/18 GOAL MET. Two Impairment Pain limiting stair ambulatory ability [facility] Goal (LTG) Pt will be able to ambulate stairs without pain. LTG Duration 07/18/18 (06/24/18: GOAL MET) One Impairment Lacks self longterm exercise program [facility] Goal (LTG) Pt will be independent with a self care HEP. LTG Duration 07/18/18 (06/17/18: Progressing HEP) Progress Towards Goals Progress Towards Goals Slow Progress - Other Progress Comments Goal #1: HEP progressing. Goal #2: GOAL MET (no pain with stair or gait ambulation) . Goal #3: GOAL intermittently MET. Today pt had knee pain that resolved after therapy. Goal #4: Mobility not addressed, R hip strengthening progressed due to improved core stab. Pain off/on at the R knee since fall 06/23/18. Assessment Summary Assessment Pt was 24 minutes late due to confustion with appt time. The pt has R medial knee pain without swelling today. Pain was resolved with US and manual therapy to the lumbar spine (L2, L3); therefore there appears to be a lumbar involvement with her knee pain . C/O burning pain in bottoms of her feet was not helped with use of compression socks. Further medical exam may be needed to assess involvement of burning pain in the bottoms of her feet. Pelvic positioning was not assessed. The pt would benefit from further skilled physical therapy for progressing core stability with hip strengthening and progress hip strengthening and ROM. The pt has been only able to attend therapy 1x/week; therefore progress has been slow. Physical Therapy Plan Frequency and Duration Frequency of Treatment 2x/Week Plan of Care Start Date 07/15/18 Plan of Care End Date 09/05/18 Therapeutic Interventions Therapeutic Interventions Aquatic Therapy Balance Training Gait Training Home Exercise Program Joint Mobilizations Manual Therapy Neuromuscular Re-education Self-Care/Home Management Soft Tissue Mobilization Taping Therapeutic Exercises Modalities Cold Pack/Ice Massage Hot Packs Iontophoresis Ultrasound Other Therapeutic Interventions Iontophoresis: 4 mg/mL of Dexamethasone with Sodium Phosphate. Next Visit Focus/Plan Next Note Type Treatment Note Next Visit Plan Check/visual for edema at R knee, start HEP of hip ROM, review hip strengthening (AD) and progress R knee medial quad strengthening. 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 Check if pt obtained knee support to minimize swelling at the knee. Refer pt back to physician for assessment of burning pain in the bottoms of the feet.
--- NOTE | 2018-07-15 19:19 | PT.OPPOC ---
Current Diagnoses Pain in right knee (07/15/18) Provider Visit Care Team Role Provider Type Juan J Soriano MD Attending Provider Physician Primary Care Provider Specialty: [facility] Address: [address] [place] [address], [address] Email: [email or web address] Plan Of Care PT-OP-T Assessment and Plan Start: 05/16/18 16:32 Freq: Status: Active Protocol: Document 07/15/18 08:39 LRN (Rec: 07/15/18 09:05 LRN [id number]) Physical Therapy Assessment Impairments Impairments Pain ROM Strength Goals Four Impairment Decreased R hip mobility and strength Long-Term Goal (LTG) Improve R hip mobility and strength with improved function per ABC score of 79 or less. LTG Duration 09/05/18 (06/17/18: Started carmen hip AD strengthening) Three Impairment R knee edema Short Term Goal (STG) Pt will be educated in self care edema management. STG Duration 05/30/18 GOAL MET. Two Impairment Pain limiting stair ambulatory ability Living Specialist Goal (LTG) Pt will be able to ambulate stairs without pain. LTG Duration 07/18/18 (06/24/18: GOAL MET) One Impairment Lacks self [facility] exercise program Long-Term Goal (LTG) Pt will be independent with a self care HEP. LTG Duration 09/05/18 (06/17/18: Progressing HEP) Progress Towards Goals Progress Towards Goals Slow Progress - Other Progress Comments Goal #1: HEP progressing. Goal #2: GOAL MET (no pain with stair or gait ambulation) . Goal #3: GOAL intermittently MET. Today pt had knee pain that resolved after therapy. Goal #4: Mobility not addressed, R hip strengthening progressed due to improved core stab. Pain off/on at the R knee since fall 06/23/18. Assessment Summary Assessment Pt was 24 minutes late due to confustion with appt time. The pt has R medial knee pain without swelling today. Pain was resolved with US and manual therapy to the lumbar spine (L2, L3); therefore there appears to be a lumbar involvement with her knee pain . C/O burning pain in bottoms of her feet was not helped with use of compression socks. Further medical exam may be needed to assess involvement of burning pain in the bottoms of her feet. Pelvic positioning was not assessed. The pt would benefit from further skilled physical therapy for progressing core stability with hip strengthening and progress hip strengthening and ROM. The pt has been only able to attend therapy 1x/week; therefore progress has been slow. Physical Therapy Plan Frequency and Duration Frequency of Treatment 2x/Week Plan of Care Start Date 07/15/18 Plan of Care End Date 09/05/18 Therapeutic Interventions Therapeutic Interventions Aquatic Therapy Balance Training Gait Training Home Exercise Program Joint Mobilizations Manual Therapy Neuromuscular Re-education Self-Care/Home Management Soft Tissue Mobilization Taping Therapeutic Exercises Modalities Cold Pack/Ice Massage Hot Packs Iontophoresis Ultrasound Other Therapeutic Interventions Iontophoresis: 4 mg/mL of Dexamethasone with Sodium Phosphate. Next Visit Focus/Plan Next Note Type Treatment Note Next Visit Plan Check/visual for edema at R knee, start HEP of hip ROM, review hip strengthening (AD) and progress R knee medial quad strengthening. 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 Check if pt obtained knee support to minimize swelling at the knee. Refer pt back to physician for assessment of burning pain in the bottoms of the feet. Plan of Care Dates Plan of Care Start Date 07/15/18 Plan of Care End Date 09/05/18 Please Sign and Return: I have reviewed this Plan of Care and certify that the skilled therapy services above are required to meet the patient?s needs. Physician Signature Date Printed Name and Credentials Clinical Instructor Signature Printed Name and Credentials
--- NOTE | 2018-07-29 15:27 | PT.OTN ---
Current Diagnoses Pain in right knee (07/29/18) Physical Therapy Treatment Note PT-OP-A Visit Information Start: 05/16/18 16:32 Freq: Status: Active Protocol: Document 07/29/18 10:36 LRN (Rec: 07/29/18 11:20 LRN [id number]) Out-Patient Physical Therapy Visit Information Visit Information Visit Type Treatment Note Visit Start Time 10:36 Visit Stop Time 11:20 Total Visit Minutes 44 Visit Number 7 Number of SCRAP DROP CRANE OPERATOR Visits 0 Evaluation Information Evaluation Date 05/20/18 PT-OP-B Current Condition Start: 05/16/18 16:32 Freq: Status: Active Protocol: Document 05/20/18 08:15 LRN (Rec: 05/20/18 17:46 LRN [id number]) Current Condition History of Current Condition Onset Date 1-2 months ago. Current Complaints Pain & swelling in R medial knee, general swelling in R foot, ankle, leg. History of Current Condition Pt reports over the summer she noted swelling in the R foot and lower leg pain that progressed to swelling in the lateral aspect of the R knee, changing over time to the medial aspect of the R knee. She thinks she may have hit her R medial knee a couple times but can't recall for sure. She states with use of Epsom salt to the knee and foot her swelling has gone away, except for in the medial knee. She has pain now with squatting, stair ambulation, and long walks ([place] She denies pain with walking short distances (2 blocks) and grocery store shopping. Prior Treatments and Tests She states X-rays show no bony changes. Treatment Goals Patient/Caregiver Goals Pt goal is to remove the pain and learn what she needs to do to keep her knee healthy. Prior Functional Status Baseline Function- ADL's Independent Baseline Function- Mobility Independent Baseline Function- Recreation/Hobbies Walked 3 miles without pain. Current Functional Impairments (Reported) Functional Limitations- ADL's R medial knee pain with stair ambulation and squatting. Functional Limitations- Mobility/Gait Unable to walk long distances now due to swelling in the feet. 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 PT-OP-C Subjective Start: 05/16/18 16:32 Freq: Status: Active Protocol: Document 07/29/18 10:36 LRN (Rec: 07/29/18 11:20 LRN [id number]) OP-PT Subjective Patient Comments Patient Comments C/O Burning on the bottoms of both feet. Knees are better. Sometimes has pain above the kneecaps. Sometimes no R medial knee pain. Soaking in Magnesium helps the foot burning pain PT-OP-D Balance Start: 05/16/18 16:32 Freq: Status: Active Protocol: Document 05/20/18 08:15 LRN (Rec: 05/20/18 17:46 LRN [id number]) Balance Tests Other Other Balance Tests Performed Pt was able to perform Single Leg Stance (SLS) without onset of pain. PT-OP-F Manual Assessment Start: 05/16/18 16:32 Freq: Status: Active Protocol: Document 05/20/18 08:15 LRN (Rec: 05/20/18 17:46 LRN [id number]) Manual Assessments Soft Tissue Assessment Soft Tissue Mobility Assessment Tenderness and swelling is present at R knee medial infrapatellar fat pad. Joint Mobility Assessment Joint Mobility Assessment R knee - normal. PT-OP-H Neuro Start: 05/16/18 16:32 Freq: Status: Active Protocol: Document 05/20/18 08:15 LRN (Rec: 05/20/18 17:46 LRN [id number]) Sensation Evaluation Gross Sensation Gross Sensation WNL Deep Tendon Reflex & Clonus Assessment Deep Tendon Reflex Bilateral Achilles Deep Tendon Reflex 3+ Normal But Brisk Bilateral Patellar Deep Tendon Reflex 3+ Normal But Brisk PT-OP-J Posture/Palpation/Skin Start: 05/16/18 16:32 Freq: Status: Active Protocol: Document 05/20/18 08:15 LRN (Rec: 05/20/18 17:46 LRN [id number]) Posture Evaluation Position Standing Evaluation View All positions Head/C-Spine Posture Forward Head Palpation Assessment Location Patella Palpation Location Medial infrapatellar Bursa Palpation Details Mild R knee pain with inferior /superior gliding. Decreased lateral mobility. Mild R medial patellar bursa tenderness Leg length Palpation Details Supine: Equal Long sit: R long. ASIS Palpation Location Bilateral ASIS Palpation Details ASIS>Umbilicus: 16 cm right, 14.5 cm left. Outflare of R ASIS. Lumbar Spine Palpation Location L2, L3, L5: PA [place] of spinous process Palpation Findings Muscle Guarding Tenderness PT-OP-K Range of Motion Start: 05/16/18 16:32 Freq: Status: Active Protocol: Document 05/20/18 08:15 LRN (Rec: 05/20/18 17:46 LRN [id number]) Hip Goniometric Range of Motion Hip Measured in Degrees Left Passive Testing Position Supine Straight Leg Raise 85 Internal Rotation 45 External Rotation 40 Right Passive Testing Position Supine Straight Leg Raise 95 Internal Rotation 45 External Rotation 55 Knee Goniometric Range of Motion Knee Measured in Degrees Left Knee ROM WFL Yes Right Knee ROM WFL Yes PT-OP-L Special Tests Start: 05/16/18 16:32 Freq: Status: Active Protocol: Document 05/20/18 08:15 LRN (Rec: 05/20/18 17:46 LRN [id number]) Special Tests Knee Special Tests Patellar Grind Test Test Results R knee: Positive Comments 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 Marquise's Sign Test Results R knee: Positive Comments Indicates swelling present Apley's Compression Test Results R knee: Negative Varus- 25 Degrees Test Results R knee: Negative Valgus- 25 Degrees Test Results R knee: Negative Posterior Draw Test Results R knee: Negative Mica Test Test Results R knee: Negative Shari's Test Results R knee: Negative Bounce Home Test Results R knee: Negative Anterior Draw Test Results R knee: Negative PT-OP-M Strength Start: 05/16/18 16:32 Freq: Status: Active Protocol: Document 05/20/18 08:15 LRN (Rec: 05/20/18 17:46 LRN [id number]) Hip Strength Hip Manual Muscle Testing Left Extension (S1) 4 Good Adduction 4- Good- Comments Strength is 5/5 except as indicated above. Right Extension (S1) 4 Good Adduction 4- Good- Comments Strength is 5/5 except as indicated above. Knee Strength Knee Manual Muscle Testing Left Reason Not Measured WFL Right Reason Not Measured WFL Ankle/Foot Strength Ankle and Foot Manual Muscle Testing Left Reason Not Measured WFL Right Reason Not Measured WFL PT-OP-Q Treatments Start: 05/16/18 16:32 Freq: Status: Active Protocol: Document 07/29/18 10:36 LRN (Rec: 07/29/18 11:20 LRN [id number]) Gym Equipment Cable Column (Body Solid) Hip Abduction Details Hole Resistance 20 Reps/Time 15 x 1 Hip Adduction Details Hole 2 Resistance 20 Reps/Time 15 x 2 Shuttle Recovery [place] Squats Resistance 62# Shuttle Recovery Platform Stable Reps/Time 30x Therapeutic Exercises Supine Exercises BKFO roll in/outs Supine Exercise Name BKFO roll in/outs with deep breathing Resistance Lev 2 T-Band & Ball Reps/Minutes 10 x 3 Manual Therapy Treatment Soft Tissue Mobilization STM Sacral border Body Location R Sacral Border & Coccyx patsy borders Mobilization Type Strumming Trigger Point Release Intensity/Depth Moderate Body Position Prone Comments No change in foot pain after STM. PT-OP-R Modalities Start: 05/16/18 16:32 Freq: Status: Active Protocol: Document 07/22/18 10:36 LRN (Rec: 07/22/18 11:25 LRN [id number]) Hot Pack/Cold Pack Treatment Cold Pack Location R knee Patient Position Supine Treatment Duration (minutes) 2 Patient Tolerance Poor Comments Pt had c/o R knee pain with use of cryotherapy. No pain felt on L side when compared. Use of ice was ended. PT-OP-T Assessment and Plan Start: 05/16/18 16:32 Freq: Status: Active Protocol: Document 07/29/18 10:36 LRN (Rec: 07/29/18 11:20 LRN [id number]) Physical Therapy Assessment Goals Four Impairment Decreased R hip mobility and strength Snf Goal (LTG) Improve R hip mobility and strength with improved function per ABC score of 79 or less. LTG Duration 09/05/18 (07/22/18: Started Active resisted hip AD strengthening) Three Impairment R knee edema STG Duration 05/30/18 GOAL MET. Two Impairment Pain limiting stair ambulatory ability LTG Duration 07/18/18 (06/24/18: GOAL MET) One Impairment Lacks self prison exercise program Snf Goal (LTG) Pt will be independent with a self care HEP. LTG Duration 09/05/18 (06/17/18: Progressing HEP) Progress Towards Goals Progress Towards Goals Progressing Toward Goals Progress Comments Goal #1: HEP education in progress. Goal #2: GOAL MET (no pain with stair or gait ambulation) . Goal #3: GOAL MET (pt education). No swelling noted today.. Goal #4: Mobility started: Hip ER stretch I/S for HEP, R hip strengthening progressed due to improved core stab. Pain off & on at the R knee since fall 06/23/18. Assessment Summary Assessment Pt had no notable swelling at the R knee today and no pain; therefore she did not obtain a knee support. She only had complaints of burning of the bottom of the feet. Did no address decreased hip mobility . Further training is needed for core stabilization to stabilize pelvis and to start hip strengthening. Pt may need to seek MD assessment of burning plantar foot pain. Scheduling difficulties has made scheduling the pt 2x/week difficult. Physical Therapy Plan Frequency and Duration Frequency of Treatment 2x/Week Plan of Care Start Date 07/15/18 Plan of Care End Date 09/05/18 Next Visit Focus/Plan Next Note Type Treatment Note Next Visit Plan Try to schedule 2x/week vs 1x/ week. Monitor for edema at R knee & for outflared R innominate; review hip strengthening (AD) and progress R knee medial quad strengthening. Assess hip mobility and address with HEP. Start SLS balance ex's. Discuss having the pt referred back to physician for assessment of burning pain in the bottoms of the feet.
--- NOTE | 2018-08-05 15:15 | PT.OTN ---
Current Diagnoses Pain in right knee (08/05/18) Physical Therapy Treatment Note PT-OP-A Visit Information Start: 05/16/18 16:32 Freq: Status: Active Protocol: Document 08/05/18 10:35 LRN (Rec: 08/05/18 11:20 LRN [id number]) Out-Patient Physical Therapy Visit Information Visit Information Visit Type Treatment Note Visit Start Time 10:35 Visit Stop Time 11:20 Total Visit Minutes 45 Visit Number 8 Number of BARYTES GRINDER Visits 0 Evaluation Information Evaluation Date 05/20/18 PT-OP-B Current Condition Start: 05/16/18 16:32 Freq: Status: Active Protocol: Document 05/20/18 08:15 LRN (Rec: 05/20/18 17:46 LRN [id number]) Current Condition History of Current Condition Onset Date 1-2 months ago. Current Complaints Pain & swelling in R medial knee, general swelling in R foot, ankle, leg. History of Current Condition Pt reports over the summer she noted swelling in the R foot and lower leg pain that progressed to swelling in the lateral aspect of the R knee, changing over time to the medial aspect of the R knee. She thinks she may have hit her R medial knee a couple times but can't recall for sure. She states with use of Epsom salt to the knee and foot her swelling has gone away, except for in the medial knee. She has pain now with squatting, stair ambulation, and long walks [place] She denies pain with walking short distances (2 blocks) and grocery store shopping. Prior Treatments and Tests She states X-rays show no bony changes. Treatment Goals Patient/Caregiver Goals Pt goal is to remove the pain and learn what she needs to do to keep her knee healthy. Prior Functional Status Baseline Function- ADL's Independent Baseline Function- Mobility Independent Baseline Function- Recreation/Hobbies Walked 3 miles without pain. Current Functional Impairments (Reported) Functional Limitations- ADL's R medial knee pain with stair ambulation and squatting. Functional Limitations- Mobility/Gait Unable to walk long distances now due to swelling in the feet. 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 PT-OP-C Subjective Start: 05/16/18 16:32 Freq: Status: Active Protocol: Document 08/05/18 10:35 LRN (Rec: 08/05/18 11:20 LRN [id number]) OP-PT Subjective Patient Comments Patient Comments Burning on the bottom of the feet is better some days. Has supports in shoes that came with the shoes. Patient Questionnaires ABC- Activity Specific Balance Confidence Scale ABC Score 60.3 ABC Functional Impairment 20 to <40% Impaired (Score 61- 80) PT-OP-D Balance Start: 05/16/18 16:32 Freq: Status: Active Protocol: Document 05/20/18 08:15 LRN (Rec: 05/20/18 17:46 LRN [id number]) Balance Tests Other Other Balance Tests Performed Pt was able to perform Single Leg Stance (SLS) without onset of pain. PT-OP-F Manual Assessment Start: 05/16/18 16:32 Freq: Status: Active Protocol: Document 05/20/18 08:15 LRN (Rec: 05/20/18 17:46 LRN [id number]) Manual Assessments Soft Tissue Assessment Soft Tissue Mobility Assessment Tenderness and swelling is present at R knee medial infrapatellar fat pad. Joint Mobility Assessment Joint Mobility Assessment R knee - normal. PT-OP-H Neuro Start: 05/16/18 16:32 Freq: Status: Active Protocol: Document 05/20/18 08:15 LRN (Rec: 05/20/18 17:46 LRN [id number]) Sensation Evaluation Gross Sensation Gross Sensation WNL Deep Tendon Reflex & Clonus Assessment Deep Tendon Reflex Bilateral Achilles Deep Tendon Reflex 3+ Normal But Brisk Bilateral Patellar Deep Tendon Reflex 3+ Normal But Brisk PT-OP-J Posture/Palpation/Skin Start: 05/16/18 16:32 Freq: Status: Active Protocol: Document 05/20/18 08:15 LRN (Rec: 05/20/18 17:46 LRN [id number]) Posture Evaluation Position Standing Evaluation View All positions Head/C-Spine Posture Forward Head Palpation Assessment Location Patella Palpation Location Medial infrapatellar Bursa Palpation Details Mild R knee pain with inferior /superior gliding. Decreased lateral mobility. Mild R medial patellar bursa tenderness Leg length Palpation Details Supine: Equal Long sit: R long. ASIS Palpation Location Bilateral ASIS Palpation Details ASIS>Umbilicus: 16 cm right, 14.5 cm left. Outflare of R ASIS. Lumbar Spine Palpation Location L2, L3, L5: PA [place] of spinous process Palpation Findings Muscle Guarding Tenderness PT-OP-K Range of Motion Start: 05/16/18 16:32 Freq: Status: Active Protocol: Document 05/20/18 08:15 LRN (Rec: 05/20/18 17:46 LRN [id number]) Hip Goniometric Range of Motion Hip Measured in Degrees Left Passive Testing Position Supine Straight Leg Raise 85 Internal Rotation 45 External Rotation 40 Right Passive Testing Position Supine Straight Leg Raise 95 Internal Rotation 45 External Rotation 55 Knee Goniometric Range of Motion Knee Measured in Degrees Left Knee ROM WFL Yes Right Knee ROM WFL Yes PT-OP-L Special Tests Start: 05/16/18 16:32 Freq: Status: Active Protocol: Document 05/20/18 08:15 LRN (Rec: 05/20/18 17:46 LRN [id number]) Special Tests Knee Special Tests Patellar Grind Test Test Results R knee: Positive Comments 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 Marquise's Sign Test Results R knee: Positive Comments Indicates swelling present Apley's Compression Test Results R knee: Negative Varus- 25 Degrees Test Results R knee: Negative Valgus- 25 Degrees Test Results R knee: Negative Posterior Draw Test Results R knee: Negative Mica Test Test Results R knee: Negative Shari's Test Results R knee: Negative Bounce Home Test Results R knee: Negative Anterior Draw Test Results R knee: Negative PT-OP-M Strength Start: 05/16/18 16:32 Freq: Status: Active Protocol: Document 05/20/18 08:15 LRN (Rec: 05/20/18 17:46 LRN [id number]) Hip Strength Hip Manual Muscle Testing Left Extension (S1) 4 Good Adduction 4- Good- Comments Strength is 5/5 except as indicated above. Right Extension (S1) 4 Good Adduction 4- Good- Comments Strength is 5/5 except as indicated above. Knee Strength Knee Manual Muscle Testing Left Reason Not Measured WFL Right Reason Not Measured WFL Ankle/Foot Strength Ankle and Foot Manual Muscle Testing Left Reason Not Measured WFL Right Reason Not Measured WFL PT-OP-Q Treatments Start: 05/16/18 16:32 Freq: Status: Active Protocol: Document 08/05/18 10:35 LRN (Rec: 08/05/18 11:20 LRN [id number]) Cardio Equipment Bicycle (Upright) Duration (Minutes) 10 Resistance 5 Seat Position 5 Other MWM to knees needed to reduce pain. Gym Equipment Cable Column (Body Solid) Hip Abduction Details Hole Resistance 20 Reps/Time 15 x 1 Hip Adduction Details Hole 2, Seat Resistance 20 Reps/Time 15 x 2 Shuttle Recovery [place] Squats Resistance 62# Shuttle Recovery Platform Stable Reps/Time 15 x 3 Therapeutic Exercises Standing Exercises Abdominal strengthening Standing Exercise Name Trunk rotation left Manual Therapy Treatment Joint Mobilizations SIJ Joint R innominate Comments Check for stability. Normal positioning noted. Manual Techniques MWM Type R knee Medial glide of Tib/Fib on femur Body Location [place] knees Body Position Stationary Bike Comments 2x during ex biking. Self-Care/Home Management Treatment Education Other Education Educated pt on Superfeet and diffent type/usage. Discussed wear pattern of shoes and recommended pt have improved support in shoes due to foot pain at end of work day. PT-OP-R Modalities Start: 05/16/18 16:32 Freq: Status: Active Protocol: Document 07/22/18 10:36 LRN (Rec: 07/22/18 11:25 LRN [id number]) Hot Pack/Cold Pack Treatment Cold Pack Location R knee Patient Position Supine Treatment Duration (minutes) 2 Patient Tolerance Poor Comments Pt had c/o R knee pain with use of cryotherapy. No pain felt on L side when compared. Use of ice was ended. PT-OP-T Assessment and Plan Start: 05/16/18 16:32 Freq: Status: Active Protocol: Document 08/05/18 10:35 LRN (Rec: 08/05/18 11:20 LRN [id number]) Physical Therapy Assessment Goals Four Impairment Decreased R hip mobility and strength Half-Way Goal (LTG) Improve R hip mobility and strength with improved function per ABC score of 79 or less. LTG Duration 09/05/18 (08/05/18: NOT MET. ABC score initial was 62.3) Three Impairment R knee edema STG Duration 05/30/18 GOAL MET. Two Impairment Pain limiting stair ambulatory ability LTG Duration 07/18/18 (06/24/18: GOAL MET) One Impairment Lacks self fci exercise program Patternmaker Hand Goal (LTG) Pt will be independent with a self care HEP. LTG Duration 09/05/18 (06/17/18: Progressing HEP) Progress Towards Goals Progress Towards Goals Progressing Toward Goals Progress Comments Goal #1: HEP education in progress. Goal #2: GOAL MET (no pain with stair or gait ambulation) . Goal #3: GOAL MET (pt education). No swelling noted today.. Goal #4: Mobility started: Hip ER stretch I/S for HEP, R hip strengthening progressed due to improved core stab. Pain off & on at the R knee since fall 06/23/18. As of 08/05/18: no improvement in ABC score. Hip strengthening being progressed. Assessment Summary Assessment Pt wants to attend therapy only 1x/week. Did not address decreased hip mobility. No improvement with function per ABC score, although the pt is able to perform stair ambulation without pain and no longer notes swelling in the R knee. She has only complaints of burning of the bottom of the feet, possibly from lack of plantar arch support. Further training is needed for core stabilization to stabilize pelvis. Pt to seek MD assessment of burning plantar foot pain if use of superfeet does not help with pain. Physical Therapy Plan Frequency and Duration Frequency of Treatment 1x/Week Plan of Care Start Date 07/15/18 Plan of Care End Date 09/05/18 Therapeutic Interventions Other Therapeutic Interventions Iontophoresis: 4 mg/mL of Dexamethasone with Sodium Phosphate. Next Visit Focus/Plan Next Note Type Discharge Summary Next Visit Plan Assess hip mobility and address with HEP. Start SLS balance ex's. Monitor for edema at R knee & for outflared R innominate. Review sidelie hip strengthening (AD) and progress R knee medial quad strengthening. Check on status of pt obtaining superfeet.
--- NOTE | 2018-08-12 15:26 | PT.OTN ---
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 Current Complaints Pain & swelling in R medial knee, general swelling in R foot, ankle, leg. History of Current Condition Pt reports over the summer she noted swelling in the R foot and lower leg pain that progressed to swelling in the lateral aspect of the R knee, changing over time to the medial aspect of the R knee. She thinks she may have hit her R medial knee a couple times but can't recall for sure. She states with use of Epsom salt to the knee and foot her swelling has gone away, except for in the medial knee. She has pain now with squatting, stair ambulation, and long walks [place] She denies pain with walking short distances (2 blocks) and grocery store shopping. Prior Treatments and Tests She states X-rays show no bony changes. Treatment Goals Patient/Caregiver Goals Pt goal is to remove the pain and learn what she needs to do to keep her knee healthy. Prior Functional Status Baseline Function- ADL's Independent Baseline Function- Mobility Independent Baseline Function- Recreation/Hobbies Walked 3 miles without pain. Current Functional Impairments (Reported) Functional Limitations- ADL's R medial knee pain with stair ambulation and squatting. Functional Limitations- Mobility/Gait Unable to walk long distances now due to swelling in the feet. 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 PT-OP-C Subjective Start: 05/16/18 16:32 Freq: Status: Active Protocol: Document 08/12/18 10:36 LRN (Rec: 08/12/18 11:36 LRN [id number]) OP-PT Subjective Patient Comments Patient Comments States knees feel fine today, both knees hurt after work. Complains of bilateral burning pain on the bottom of the feet. PT-OP-D Balance Start: 05/16/18 16:32 Freq: Status: Active Protocol: Document 05/20/18 08:15 LRN (Rec: 05/20/18 17:46 LRN [id number]) Balance Tests Other Other Balance Tests Performed Pt was able to perform Single Leg Stance (SLS) without onset of pain. PT-OP-F Manual Assessment Start: 05/16/18 16:32 Freq: Status: Active Protocol: Document 05/20/18 08:15 LRN (Rec: 05/20/18 17:46 LRN [id number]) Manual Assessments Soft Tissue Assessment Soft Tissue Mobility Assessment Tenderness and swelling is present at R knee medial infrapatellar fat pad. Joint Mobility Assessment Joint Mobility Assessment R knee - normal. PT-OP-H Neuro Start: 05/16/18 16:32 Freq: Status: Active Protocol: Document 05/20/18 08:15 LRN (Rec: 05/20/18 17:46 LRN [id number]) Sensation Evaluation Gross Sensation Gross Sensation WNL Deep Tendon Reflex & Clonus Assessment Deep Tendon Reflex Bilateral Achilles Deep Tendon Reflex 3+ Normal But Brisk Bilateral Patellar Deep Tendon Reflex 3+ Normal But Brisk PT-OP-J Posture/Palpation/Skin Start: 05/16/18 16:32 Freq: Status: Active Protocol: Document 05/20/18 08:15 LRN (Rec: 05/20/18 17:46 LRN [id number]) Posture Evaluation Position Standing Evaluation View All positions Head/C-Spine Posture Forward Head Palpation Assessment Location Patella Palpation Location Medial infrapatellar Bursa Palpation Details Mild R knee pain with inferior /superior gliding. Decreased lateral mobility. Mild R medial patellar bursa tenderness Leg length Palpation Details Supine: Equal Long sit: R long. ASIS Palpation Location Bilateral ASIS Palpation Details ASIS>Umbilicus: 16 cm right, 14.5 cm left. Outflare of R ASIS. Lumbar Spine Palpation Location L2, L3, L5: PA Machias of spinous process Palpation Findings Muscle Guarding Tenderness PT-OP-K Range of Motion Start: 05/16/18 16:32 Freq: Status: Active Protocol: Document 05/20/18 08:15 LRN (Rec: 05/20/18 17:46 LRN [id number]) Hip Goniometric Range of Motion Hip Measured in Degrees Left Passive Testing Position Supine Straight Leg Raise 85 Internal Rotation 45 External Rotation 40 Right Passive Testing Position Supine Straight Leg Raise 95 Internal Rotation 45 External Rotation 55 Knee Goniometric Range of Motion Knee Measured in Degrees Left Knee ROM WFL Yes Right Knee ROM WFL Yes PT-OP-L Special Tests Start: 05/16/18 16:32 Freq: Status: Active Protocol: Document 05/20/18 08:15 LRN (Rec: 05/20/18 17:46 LRN [id number]) Special Tests Knee Special Tests Patellar Grind Test Test Results R knee: Positive Comments 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 Marquise's Sign Test Results R knee: Positive Comments Indicates swelling present Apley's Compression Test Results R knee: Negative Varus- 25 Degrees Test Results R knee: Negative Valgus- 25 Degrees Test Results R knee: Negative Posterior Draw Test Results R knee: Negative Mica Test Test Results R knee: Negative Shari's Test Results R knee: Negative Bounce Home Test Results R knee: Negative Anterior Draw Test Results R knee: Negative PT-OP-M Strength Start: 05/16/18 16:32 Freq: Status: Active Protocol: Document 05/20/18 08:15 LRN (Rec: 05/20/18 17:46 LRN [id number]) Hip Strength Hip Manual Muscle Testing Left Extension (S1) 4 Good Adduction 4- Good- Comments Strength is 5/5 except as indicated above. Right Extension (S1) 4 Good Adduction 4- Good- Comments Strength is 5/5 except as indicated above. Knee Strength Knee Manual Muscle Testing Left Reason Not Measured WFL Right Reason Not Measured WFL Ankle/Foot Strength Ankle and Foot Manual Muscle Testing Left Reason Not Measured WFL Right Reason Not Measured WFL PT-OP-Q Treatments Start: 05/16/18 16:32 Freq: Status: Active Protocol: Document 08/12/18 10:36 LRN (Rec: 08/12/18 11:36 LRN [id number]) Cardio Equipment Bicycle (Upright) Duration (Minutes) 8 Resistance 5 Seat Position 5 Other MWM to knees needed to reduce pain. Therapeutic Exercises Supine Exercises PSLR stretch Side bilateral Comments ROM taken with stretch Hip stretches Supine Exercise Name Fig 4, Piriformis Side bilateral Comments ROM measurements taken with stretch BKFO roll in/outs Supine Exercise Name BKFO roll in/outs with deep breathing Resistance Lev 2 T-Band & Ball Reps/Minutes 10 x 3 Sidelying Exercises Hip AD Sidelying Exercise Name L leg in front of R knee Side bilateral Reps/Minutes 10x3 Comments L leg easier to lift Standing Exercises Sit to Stand Standing Exercise Name Sit to stand from higher than chair Reps/Minutes 10x Self-Care/Home Management Treatment Education Patient Education Home Exercise Program Activities Self-Care/Home Management Activities Issued & reviewed HEP of LE pelvic stab: LE roll in/outs, hip stretches: fig 4, piriformis in 2 stages. Assisted pt in obtaining Green [employer] by ordering size womens 9. PT-OP-R Modalities Start: 05/16/18 16:32 Freq: Status: Active Protocol: Document 07/22/18 10:36 LRN (Rec: 07/22/18 11:25 LRN [id number]) Hot Pack/Cold Pack Treatment Cold Pack Location R knee Patient Position Supine Treatment Duration (minutes) 2 Patient Tolerance Poor Comments Pt had c/o R knee pain with use of cryotherapy. No pain felt on L side when compared. Use of ice was ended. PT-OP-T Assessment and Plan Start: 05/16/18 16:32 Freq: Status: Active Protocol: Document 08/12/18 10:36 LRN (Rec: 08/12/18 11:36 LRN [id number]) Physical Therapy Assessment Goals Four Impairment Decreased R hip mobility and strength Sales Floor Manager Goal (LTG) Improve R hip mobility and strength with improved function per ABC score of 79 or less. LTG Duration 09/05/18 (08/05/18: NOT MET. ABC score initial was 62.3) Three Impairment R knee edema STG Duration 05/30/18 GOAL MET. Two Impairment Pain limiting stair ambulatory ability LTG Duration 07/18/18 (06/24/18: GOAL MET) One Impairment Lacks self long-term exercise program Correction Goal (LTG) Pt will be independent with a self care HEP. LTG Duration 09/05/18 (08/12/18 GOAL MET) Progress Towards Goals Progress Towards Goals Progressing Toward Goals Progress Comments Goal #1: GOAL MET. Goal #2: GOAL MET (no pain with stair or gait ambulation) . Goal #3: GOAL MET (pt education). No swelling noted today.. Goal #4: Mobility started: Hip ER stretch I/S for HEP, R hip strengthening progressed due to improved core stab. Pain off & on at the R knee since fall 06/23/18. As of 08/05/18: no improvement in ABC score. Hip strengthening being progressed. Assessment Summary Assessment The pt has shown good improvement since her initial evalution. She does not have complaints of swelling in her R knee, but does complain of pain in the knee and also the L knee after working. She has been educated in how to manage her knee pain when present, but continues to have questions regarding onset of pain and wondering what to do. I don't know if it is a communication problem, but the pt may need further therapy in the future for similar complaints if she is not able to continue with her HEP and follow proper body mechanics as she was trained. The pt has not been able to recall her home ex's; therefore she was issued a HEP today of ex's . The pt has complaints of bilateral burning pain in the feet bilaterally for which she has been referred back to your office for evaluation and possible recommendation of physical therapy if appropriate. Although the pt thinks she has plantar fasciitis her symptom description is not completely consistent with this condition . Further therapy assessment would be appropriate once she has been cleared for other possible reasons of onset. Due to the pt's insurance restrictions she is being discharged from physical therapy at this time per patient choice. Physical Therapy Plan Frequency and Duration Frequency of Treatment 1x/Week Plan of Care Start Date 07/15/18 Plan of Care End Date 09/05/18 Other Referrals/Consults Referrals/Consults Recommended Recommended pt go back to MD for check of bilateral feet burning pain. Discharge Physical Therapy Discharge Comments Three of four goals met. The pt chose [facility] due to insurance limitations.
== END 2018-08-13 12:09 ==
LOC: PHYS 10:30
PROVIDERS: PCP Family Medicine; Visit Provider Family Medicine
DX: M25.561 Pain in right knee (principal)
CPT/HCPCS: 97035; 97110; 97140; 97161; 97535

== ENCOUNTER 2018-10-14 16:22 | Emergency (ER) | payer OTHER, MEDICAID, SELFPAY ==
[2018-10-14 16:29] VITALS: BP 134/88; PULSE 73; RESP 14; TEMP 36.5; O2SAT 96
--- NOTE | 2018-10-14 16:33 | DI.RAD.S_ITS ---
PROCEDURE: XR FOOT LT MIN 3V INDICATIONS: hit foot yesterday, pain worse today extending to 4th/5th toes TECHNIQUE: 3 views of the foot were acquired. COMPARISON: None. FINDINGS: Bones: There is a mildly displaced fracture within the shaft of the 5th proximal phalanx. No dislocation. There is mild narrowing of the interphalangeal joints. Mild degeneration is also demonstrated at the 1st metatarsophalangeal joint. Soft tissues: There is soft tissue swelling of the 4th and 5th toes. IMPRESSION: 1. Mildly displaced fracture of the 5th proximal phalanx. Dictated by: Benja Ferrera M.D. on 10/14/2018 at 17:02 Approved by: Benja Ferrera M.D. on 10/14/2018 at 17:05
--- NOTE | 2018-10-14 18:13 | ED_ITS ---
HPI - Extremity Injury (Lower) General Chief Complaint: Extremity Injury, Lower Stated Complaint: left foot great toe injury x2days Time Seen by Provider: 10/14/18 17:00 Source: patient Mode of arrival: ambulatory Limitations: no limitations History of Present Illness HPI Narrative: 57-year-old female nonsmoker with noncontributory medical history presents with a chief complaint of left foot pain after stumbling and stubbing her left toe. She has bruising and swelling. Her pain is worse with ambulation and improves with rest. She denies any numbness, tingling or weakness. She denies any history of the same. She denies other injury MD complaint: foot injury Onset (ago): minute(s) Type of Injury: blunt Place: home Severity: mild Relieving factors: rest Exacerbating factors: weight bearing and movement Context: direct blow Associated symptoms: swelling Other symptoms: none Related Data Home Medications Medication Instructions Recorded Confirmed thyroid (pork) [[place] Thyroid] 90 mg PO Q OTHER DAY 10/14/18 10/14/18 Previous Rx's Medication Instructions Recorded thyroid (pork) 60 mg tablet 60 mg PO EVERY OTHER DAY #45 tab 06/11/18 Allergies Allergy/AdvReac Type Severity Reaction Status Date / Time No Known Drug Allergies Allergy Unverified 06/11/18 09:58 Review of Systems Constitutional Denies chills, Denies fever(s), Denies lethargy and Denies weakness Eyes Denies change in vision, Denies eye discharge, Denies irritation and Denies loss of vision ENT Ears, Nose, Mouth, and Throat: Denies change in voice, Denies neck pain and Denies sore throat Cardiovascular Denies chest pain, Denies irregular heart rhythm, Denies lightheadedness, Denies palpitations, Denies dyspnea, Denies dyspnea on exertion and Denies orthopnea Respiratory Denies cough, Denies dyspnea, Denies dyspnea on exertion and Denies wheezing Gastrointestinal Gastrointestinal: Denies abdominal pain, Denies change in bowel habits, Denies diarrhea, Denies nausea and Denies vomiting Genitourinary Denies hematuria, Denies flank pain, Denies urinary incontinence and Denies urinary urgency Musculoskeletal Reports arthralgias, Reports joint swelling and Denies neck pain Integumentary/Breasts Denies pruritus, Denies erythema, Denies rash and Denies wounds Neurologic Denies confusion, Denies loss of vision and Denies weakness Psychiatric Denies anxiety, Denies confusion, Denies depression, Denies homicidal ideation and Denies suicidal ideation Endocrine Denies palpitations Hematologic/Lymphatic Denies easy bruising Allergic/Immunologic Denies wheezing PFSH Medical History Hyperthyroidism (Chronic 2003) History of breast cancer (Resolved) Surgical History H/O left mastectomy (Resolved) History of appendectomy (Resolved) Social History Smoking Status: Never smoker alcohol intake: never substance use type: does not use Social History Smoking Status: Never smoker alcohol intake: never substance use type: does not use Exam Narrative Exam Narrative: GEN: AOx3 and in mild distress EYES: Pupils are equal, round, and reactive to light and accommodation. Extraoccular muscles are intact bilaterally. There is no subconjunctival hemorrhage or exudate. CHEST: Lungs are clear to auscultation bilaterally and free of wheezes, rales, or rhonchi. Heart rate is regular rhythm, there are no murmurs, clicks, rubs, or gallops. There is no chest wall tenderness. ABD: Abdomen is soft and nontender. There is no guarding or rebound. Bowel sounds are normal in all 4 quadrants. There is no mass or organomegaly. EXT: Left 5th toe erythema with mild ecchymosis. Tender to palpate no obvious deformity. Closed, isolated and neurovascularly intact SKIN: Warm, pink, and dry. No erythema or rash Initial Vital Signs Initial Vital Signs: Vital Signs Temperature 97.7 F 10/14/18 16:29 Pulse Rate 73 10/14/18 16:29 Respiratory Rate 14 10/14/18 16:29 Blood Pressure 134/88 10/14/18 16:29 Pulse Oximetry 96 10/14/18 16:29 Procedures Orthopedic Splinting/Casting Injury #1: Side: left Lower Extremity Injury Location: foot Lower Extremity Immobilizer: post-op shoe Post splinting neuro exam: intact Post splinting vascular exam: intact Placed by: Nursing Course Orders Ordered: ED Orders 10/14/18 16:33 XR foot LT min 3V Stat Vital Signs - 8 hr 10/14/18 16:29 Temperature 97.7 F Pulse Rate 73 Respiratory Rate 14 Blood Pressure 134/88 Pulse Oximetry 96 MDM - Extremity Injury (Lower) Imaging Data Foot Xray: Radiologist's impression: [address] [address] XRay Report Signed Patient: Poncho Hayes [facility]#: [id number] : 1Acct:[id number] Age/Sex: 57 / FDate of Service: 10/14/18 Loc: ED Accession Number: [id number] Procedure: XR foot LT min 3V Ordering Provider: Sin Carcamo D.O. PROCEDURE: XR FOOT LT MIN 3V INDICATIONS: hit foot yesterday, pain worse today extending to 4th/5th toes TECHNIQUE: 3 views of the foot were acquired. COMPARISON: None. FINDINGS: Bones: There is a mildly displaced fracture within the shaft of the 5th proximal phalanx. No dislocation. There is mild narrowing of the interphalangeal joints. Mild degeneration is also demonstrated at the 1st metatarsophalangeal joint. Soft tissues: There is soft tissue swelling of the 4th and 5th toes. IMPRESSION: 1. Mildly displaced fracture of the 5th proximal phalanx. Dictated by: Benja Ferrera M.D. on 10/14/2018 at 17:02 Approved by: Benja Ferrera M.D. on 10/14/2018 at 17:05 Discharge Plan Departure Patient Disposition: Home Clinical Impression: Closed fracture of fifth toe of left foot Qualifiers: Encounter type: initial encounter Qualified Code(s): S92.502A - Displaced unspecified fracture of left lesser toe(s), initial encounter for closed fracture Discharge Date/Time: 10/14/18 18:27 Interventions: ED Discharge Assessment Last Done: 10/14/18 18:27 Instructions: DI for Toe Fracture Activity Restrictions/Additional Instructions: *You have been diagnosed with [ Left fifth toe fracture ] *What to do: *Take medications as directed *Follow up with your primary care provider in 2-3 days, call for an appointment. Let them know you were seen in the Emergency Department and that we ask that you be seen in follow up *Return to ER if you should have any new, worsening or concerning symptoms Prescriptions: No Action thyroid (pork) [[place] Thyroid] 60 mg tablet 60 mg PO EVERY OTHER DAY Qty: 45 RF: 3 thyroid (pork) [[place] Thyroid] 90 mg tablet 90 mg PO Q OTHER DAY RF: 0 Referrals: Juan J Soriano MD [Primary Care Provider] -
== END 2018-10-14 18:27 | disposition home or self-care (01) ==
PROVIDERS: Emergency Provider Emergency Medicine; PCP Family Medicine
DX: S92.502A Displaced unspecified fracture of left lesser toe(s), initial encounter for closed fracture (principal)
CPT/HCPCS: 73630; 99282; 99283

== ENCOUNTER → 2019-01-14 17:57 | Outpatient (CLI) | payer OTHER, MEDICAID, SELFPAY ==
--- NOTE | 2019-01-14 17:59 | DI.RAD.S_ITS ---
PROCEDURE: XR FOOT LT MIN 3V INDICATIONS: toe fracture TECHNIQUE: 3 views of the foot were acquired. COMPARISON: [facility], CR, XR FOOT LT MIN 3V, 10/14/2018, 16:36. FINDINGS: Bones: Oblique fracture involving the proximal phalanx of the fifth toe in unchanged alignment. No acute fracture No suspicious bony lesions. Moderate first MTP degeneration. Marginal lucency of the first metatarsal head appear unchanged. Osseous bunion noted. Accessory navicular and os peroneum noted. Diffuse interphalangeal joint degeneration. Soft tissues: No tibiotalar joint effusion. Achilles tendon appears normal. IMPRESSION: Unchanged alignment of fifth toe proximal phalanx fracture demonstrating healing sclerosis. Additional chronic degenerative changes as above. Dictated by: Allen Davies M.D. on 01/15/2019 at 9:02 Approved by: Allen Davies M.D. on 01/15/2019 at 9:03
== END ==
PROVIDERS: PCP Family Medicine; Visit Provider Hospitalist
DX: S92.512D Displaced fracture of proximal phalanx of left lesser toe(s), subsequent encounter for fracture with routine healing (principal)
CPT/HCPCS: 73630

== ENCOUNTER → 2019-03-05 08:56 | Outpatient (CLI) | payer OTHER, MEDICAID, SELFPAY ==
[2019-03-05 09:47] LABS: Add Manual Diff / Slide Review NO; Basophils Absolute Auto 100 /uL (0-100); Basophils Percent Auto 1.1 % (0-2); Eosinophils Absolute Auto 100 /uL (0-450); Hematocrit 40.7 % (36-46); Hemoglobin 14.1 g/dL (12.0-16.0); Lymphocytes Absolute Auto 1600 /uL (1100-4500); Lymphocytes Percent Auto 26.1 % (25-40); Mean Corpuscular HGB Conc 34.7 % (30-36); Mean Corpuscular Hemoglobin 32.5 PG (26-34); Mean Corpuscular Volume 93.4 fL (80-100); Monocytes Absolute Auto 700 /uL (0-900); Monocytes Percent Auto 10.9 % (3-14); Neutrophils Absolute Auto 3700 /uL (1500-7000); Neutrophils Percent Auto 60.9 % (50-75); Platelet Count 217 X10^3/uL (150-400); Red Blood Cell Count 4.36 X10^6/uL (4.0-5.2); Red Cell Distribution Width 14.8 % (11.6-14.8); White Blood Cell Count 6.2 X10^3/uL (4.5-11.0)
[2019-03-05 10:04] LABS: Alanine Aminotransferase 28 IU/L (9-52); Albumin 4.9 g/dL (3.5-5.0); Albumin Globulin Ratio 1.8 (1.0-2.8); Alkaline Phosphatase 88 U/L (38-126); Aspartate Aminotransferase 34 IU/L (14-36); BUN Creatinine Ratio 22.5 (6-22); Bilirubin Total 0.9 mg/dL (0.2-1.3); Blood Urea Nitrogen 18 mg/dL (7-17); Calcium 9.8 mg/dL (8.4-10.2); Carbon Dioxide 24 mmol/L (22-32); Chloride 102 mmol/L (98-107); Cholesterol 262 mg/dL (140-199); Estimated Glomerular Filt Rate > 60.0 mL/min (>60); Globulin 2.7 g/dL (1.7-4.1); Glucose 103 mg/dL (70-100); HEMOLYSIS < 15 (0-50); Potassium 4.1 mmol/L (3.4-5.1); Sodium 137 mmol/L (137-145); Total Protein 7.6 g/dL (6.3-8.2); Triglycerides 126 mg/dL (35-150)
[2019-03-05 10:12] LABS: HDL Cholesterol 119 mg/dL (40-60); LDL Cholesterol Calculated 118 mg/dL (<100)
[2019-03-05 10:18] LABS: Vitamin D 25 Hydroxy (D3) 28.3 ng/mL (30.0-100.0)
[2019-03-05 10:32] LABS: Thyroid Stimulating Hormone 9.83 uIU/mL (0.47-4.68)
== END ==
PROVIDERS: PCP Family Medicine; Visit Provider Family Medicine
DX: E03.9 Hypothyroidism, unspecified (principal)
CPT/HCPCS: 36415; 80053; 80061; 82306; 84403; 84443; 85025

== ENCOUNTER → 2019-05-05 07:36 | Outpatient (CLI) | payer OTHER, MEDICAID, SELFPAY ==
[2019-05-05 08:46] LABS: Vitamin D 25 Hydroxy (D3) 40.2 ng/mL (30.0-100.0)
[2019-05-05 09:01] LABS: Thyroid Stimulating Hormone 3.08 uIU/mL (0.47-4.68)
== END ==
PROVIDERS: PCP Family Medicine; Visit Provider Family Medicine
DX: R79.89 Other specified abnormal findings of blood chemistry (principal); E55.9 Vitamin D deficiency, unspecified
CPT/HCPCS: 36415; 82306; 84443

== ENCOUNTER 2019-05-19 09:37 | Emergency (ER) | payer OTHER, MEDICAID, SELFPAY ==
[2019-05-19 09:42] VITALS: BP 149/84; PULSE 65; RESP 14; TEMP 36.6; O2SAT 100; BMI 20.1
--- NOTE | 2019-05-19 09:43 | DI.RAD.S_ITS ---
PROCEDURE: XR WRIST RT MIN 3V INDICATIONS: injury/pain TECHNIQUE: 4 views of the wrist were acquired. COMPARISON: None. FINDINGS: Bones: A dorsally impacted transverse fracture involving the distal radial metaphysis is identified with probable intra-articular extension. Widening of the distal radioulnar joint is present. No additional fractures are evident. There is no dislocation. Moderate degenerative changes are present involving the basal joint of the thumb. Soft tissues: No suspicious soft tissue calcifications. Soft tissue swelling of the wrist is present. IMPRESSION: Dorsal impacted Colles' fracture of the distal radius with intra-articular extension. There is also widening of the distal radioulnar joint. Dictated by: Pillo Guerin M.D. on 05/19/2019 at 9:23 Approved by: Pillo Guerin M.D. on 05/19/2019 at 9:24
--- NOTE | 2019-05-19 09:45 | PC.NURSE ---
Pt arrived with ice on wrist
--- NOTE | 2019-05-19 09:54 | ED_ITS ---
HPI - Extremity Injury (Upper) General Chief Complaint: Extremity Injury, Upper Stated Complaint: fell,injured right arm Time Seen by Provider: 05/19/19 09:46 Source: patient Mode of arrival: Ambulatory Limitations: no limitations History of Present Illness HPI narrative: Patient is 58-year-old female who presents with right wrist pain. She slipped and fell on the ice landing on her bottom but she says the wrist took most of the injury. She did not hit her head or lose consciousness she denies numbness or tingling. complaint: injury to: right and wrist Place: outdoors Context: fall Associated symptoms: denies other symptoms Related Data Previous Rx's Medication Instructions Recorded temazepam 15 mg capsule 15 mg PO BEDTIME PRN #20 cap 03/03/19 cholecalciferol (vitamin D3) 50 2,000 unit PO DAILY #90 cap 03/09/19 mcg (2,000 unit) capsule thyroid (pork) 48.75 mg tablet 97.5 mg PO DAILY #60 tab 05/07/19 hydrocodone-acetaminophen 1 tab PO Q6H PRN #10 tab 05/19/19 Allergies Allergy/AdvReac Type Severity Reaction Status Date / Time No Known Drug Allergies Allergy Verified 05/19/19 09:42 Review of Systems Review of Systems Narrative: GENERAL: Denies chills,fever HEENT: Denies throat pain RESPIRATORY: Denies dyspnea, cough, wheezing CARDIOVASCULAR: Denies chest pain, palpitations GASTROINTESTINAL: Denies nausea, vomiting MUSCULOSKELETAL: See HPI SKIN: No rash, no laceration, no pruritus NEUROLOGIC: Denies weakness, dizziness, headache, numbness 8 point review of systems is negative except for those stated above and HPI Patient History Medical History History of breast cancer (Resolved) Hyperthyroidism (Chronic 2002) Surgical History H/O left mastectomy (Resolved) History of appendectomy (Resolved) Social History Smoking Status: Never smoker alcohol intake: never substance use type: does not use Smoking Status: Never smoker alcohol intake frequency: holidays/special occasions only Substance Use Type: does not use Exam Initial Vital Signs Initial Vital Signs: Vital Signs Temperature 97.9 F 05/19/19 09:42 Pulse Rate 65 05/19/19 09:42 Respiratory Rate 14 05/19/19 09:42 Blood Pressure 149/84 H 05/19/19 09:42 Pulse Oximetry 100 05/19/19 09:42 GENERAL: Well-appearing, well-nourished and in no acute distress. CARDIOVASCULAR: peripheral pulses in tact, cap refill <2 sec RESPIRATORY: No respiratory distress, speaks in full sentences without difficulty EXTREMITIES: Normal range of motion, no clubbing or edema. Neurovascularly intact Right upper extremity pain with movement of fingers and palpation of wrist minimal deformity noted good distal radial pulse. No elbow clavicle or shoulder pain or discomfort. NEUROLOGICAL: Cranial nerves II through XII grossly intact. Normal gait and speech. SKIN: Warm, dry, no petechiae, no rashes or lesions. Procedures Orthopedic Splinting/Casting Injury #1: Side: right Upper Extremity Injury Location: wrist Upper Extremity Immobilizer: sling/shoulder immobilizer and sugar tong splint Post splinting neuro exam: intact Post splinting vascular exam: intact Placed by: Nursing Course Orders Ordered: ED Orders 05/19/19 09:43 XR wrist RT min 3V Stat Discontinued Medications Ibuprofen (Advil) 400 mg PO NOW ONE Stop: 05/19/19 10:13 Last Admin: 05/19/19 10:21 Dose: 400 mg Documented by: SUREKHA Vital Signs Vital signs: Vital Signs - 8 hr 05/19/19 09:42 Temperature 97.9 F Pulse Rate 65 Respiratory Rate 14 Blood Pressure 149/84 H Pulse Oximetry 100 MDM - Extremity Injury (Upper) Imaging Data Extremity x-ray #1: Radiologist's Impression: PROCEDURE: XR WRIST RT MIN 3V INDICATIONS: injury/pain TECHNIQUE: 4 views of the wrist were acquired. COMPARISON: None. FINDINGS: Bones: A dorsally impacted transverse fracture involving the distal radial metaphysis is identified with probable intra-articular extension. Widening of the distal radioulnar joint is present. No additional fractures are evident. There is no dislocation. Moderate degenerative changes are present involving the basal joint of the thumb . Soft tissues: No suspicious soft tissue calcifications. Soft tissue swelling of the wrist is present. IMPRESSION: Dorsal impacted Colles' fracture of the distal radius with intra- articular extension. There is also widening of the distal radioulnar joint. Dictated by: Pillo Guerin M.D. on 05/19/2019 at 9:23 Discharge Plan Departure Patient Disposition: Home Clinical Impression: Fracture of right wrist Qualifiers: Encounter type: initial encounter Fracture type: closed Qualified Code(s): S62.101A - Fracture of unspecified carpal bone, right wrist, initial encounter for closed fracture Discharge Date/Time: 05/19/19 10:56 Instructions: DI for Wrist Fracture Activity Restrictions/Additional Instructions: *You have been diagnosed with right wrist fracture *What to do: Keep arm in splint at all times. Cover while showering. He need to follow-up with orthopedics in about 1-2 weeks and today will put you on a more permanent cast. Use sling during the day or while active. May ice through splint 30 minutes at a time. *Continue to take medications as directed Tylenol 650 mg every 4-6 hours if needed for mild to moderate pain *Follow up with your primary care provider in 2-3 days *Return to ER if you should have increased pain numbness tingling inability to move finger [or] any new, worsening or concerning symptoms CONTROLLED SUBSTANCE DISCHARGE (Narcotoic/benzodiazepine/Flexeril/Phenergan) 1. You have been prescribed narcotic medications, it does have acetaminophen/Tylenol/paracetamol in it so do not take extra Tylenol or Tylenol containing products TRAMADOL DOES NOT CONTAIN TYLENOL 2. Please understand that we cannot provide further refills of narcotics, benzodiazepines or controlled substances through the ED and her pain management will need to be through your provider. 3. While on these medications you cannot drive or operate heavy machinery. 4. You cannot sign legal documents or perform any duties such as this. 5. As long as you're taking opiate pain medications he should also be taking a stool softener such as Colace, Dulcolax, MiraLAX or prune juice, to help avoid constipation. Prescriptions: New hydrocodone-acetaminophen 5-325 mg tablet 1 tab PO Q6H PRN (Reason: pain) Qty: 10 RF: 0 No Action cholecalciferol (vitamin D3) 2,000 unit capsule 2,000 unit PO DAILY Qty: 90 RF: 3 Nature-Throid 48.75 mg tablet 97.5 mg PO DAILY Qty: 60 RF: 2 temazepam 15 mg capsule 15 mg PO BEDTIME PRN (Reason: sleep) Qty: 20 RF: 3 Referrals: [facility] [Provider Group] Juan J Soriano MD [Primary Care Provider] -
[2019-05-19] MEDS: IBUPROFEN 400 MG TABLET PO (10:21)
--- NOTE | 2019-05-19 10:29 | PC.NURSE ---
sugartong splint applied
== END 2019-05-19 10:56 | disposition home or self-care (01) ==
PROVIDERS: Emergency Provider Emergency Medicine; PCP Family Medicine
DX: S62.101A Fracture of unspecified carpal bone, right wrist, initial encounter for closed fracture (principal); W00.0XXA Fall on same level due to ice and snow, initial encounter
CPT/HCPCS: 29125; 73110; 99283; 99284

== ENCOUNTER → 2019-05-22 14:48 | Outpatient (CLI) | payer OTHER, MEDICAID, SELFPAY ==
[2019-05-22 15:31] LABS: Add Manual Diff / Slide Review NO; Basophils Absolute Auto 0 /uL (0-100); Basophils Percent Auto 0.7 % (0-2); Eosinophils Absolute Auto 100 /uL (0-450); Eosinophils Percent Auto 1.5 % (2-4); Hematocrit 40.3 % (36-46); Hemoglobin 13.6 g/dL (12.0-16.0); Lymphocytes Absolute Auto 2300 /uL (1100-4500); Lymphocytes Percent Auto 35.6 % (25-40); Mean Corpuscular HGB Conc 33.8 % (30-36); Mean Corpuscular Hemoglobin 32.1 PG (26-34); Monocytes Absolute Auto 700 /uL (0-900); Monocytes Percent Auto 10.4 % (3-14); Neutrophils Absolute Auto 3400 /uL (1500-7000); Neutrophils Percent Auto 51.8 % (50-75); Platelet Count 208 X10^3/uL (150-400); Red Blood Cell Count 4.24 X10^6/uL (4.0-5.2); Red Cell Distribution Width 13.9 % (11.6-14.8); White Blood Cell Count 6.6 X10^3/uL (4.5-11.0)
== END ==
PROVIDERS: PCP Family Medicine; Visit Provider Orthopaedic Surgery Adult Reconstructive Orthopaedic Surgery
DX: Z01.818 Encounter for other preprocedural examination (principal); Z01.812 Encounter for preprocedural laboratory examination
CPT/HCPCS: 36415; 85025; 93005

== ENCOUNTER 2019-05-27 07:48 | Day surgery (SDC) | payer OTHER, MEDICAID, SELFPAY ==
[2019-05-27] VITALS (17 sets, daily range): BP systolic 96–132; BP diastolic 59–69; PULSE 65–96; RESP 10–73; TEMP 36.5–37.3; O2SAT 86–100; BMI 20.1
[2019-05-27] MEDS: LACTATED RINGERS 1,000 ML 42 ML IV ×2 (10:00→12:30)
[2019-05-27] MEDS: CEFAZOLIN 2 GM/100 ML FROZ.PIGGY IV (10:05)
--- NOTE | 2019-05-27 10:09 | PM.PREOP ---
Pre-operative Note Interval Note History & Physical reviewed/Exam performed by Physician: Yes Changes to H&P: No H&P completed within 30 days and has changed as indicated here:: Lungs clear Hear RRR Plan for right DR LEA
--- NOTE | 2019-05-27 10:34 | SUR.OPER ---
Supine on padded OR bed, head on pillow, left arm secured on padded arm boards at <90 degrees abduction, right arm on sterile armboard in sterile field legs uncrossed, safety belt at thigh, tape over blanket over lower legs.
--- NOTE | 2019-05-27 11:51 | P.OP_ITS ---
Operative Date/Time/Diagnoses Date of procedure: 05/27/19 Time of procedure: 11:51 Pre-op diagnosis: right distal radius fracture Post-op diagnosis: same Procedure & Clinicians Procedure: Open reduction internal fixation right distal radius fracture Same procedure as scheduled: Yes Indications: Displaced distal radius fracture Surgeon: Edilberto Ordaz Cattle Care Worker: Luc Camarillo Anesthesia Type: General Operative Notes Findings: Displaced intra-articular distal radius fracture Closure Type: primary Specimen(s): none sent Prosthetic devices, grafts, tissues, transplants, or devices: Arthrex size 3 right standard with distal radius plate Estimated Blood Loss (mL): 25 Blood products transfused: none Tourniquet time (min): 65 Procedure in detail: Patient was met in the preop holding area where the site and side of surgery were marked by all last minute questions were answered. The patient was then brought back in the operating room where she was transferred onto the operating room table and induced under general anesthesia. The right upper extremity splint was then removed and the right upper extremity was then prepped and draped in normal sterile fashion and nonsterile tourniquet was placed. Time-out was performed verifying side and site of surgery as well as the name of the patient. The tourniquet was then inflated and a 5 cm incision along the distal portion of the FCR tendon was made with a 15. Blade. I then dissected down to the floor of the FCR tendon sheath and retracted the FPL and the FCR ulnarly. This exposed the pronator quadratus. Electrocautery was used to make a '7' shaped incision in the pronator quadratus the muscle was retracted ulnarly elevated off the bone with a wood handle elevator. This exposed our fracture. A size 3 standard with distal radius plate was then selected and held in place with K-wires and an alif. X-ray was taken to verify our position. A 7 mm kickstand was selected and placed in the most proximal hole. The distal holes in the plate were then drilled and filled. These were checked periodically through x-ray guidance. Once the distal row was filled and verified to be out of the joint with x-ray. The kickstand was removed and a cortical screw was placed to pull the plate down to the bone helping to recreate volar tilt the distal radius. A 2nd cortical screw was then placed followed by a locking shaft screw. The proximal row locking screws in the distal aspect of the plate were then drilled and filled as well. X-ray guidance was taken to verify that all screws were out of the joint they were not prominent. Good range of motion of the wrist without any crepitance. The wound was then irrigated with normal saline and the PQ was repaired using 1. Vicryl followed by 2 Vicryl in the subcutaneous tissue followed by a running Monocryl suture. A short-arm splint was then placed. Patient was then taken to PACU in stable condition. Post-operative Condition: stable Disposition: PACU Plan for aftercare: Discharge home when stable from PACU. Nonweightbearing on right upper extremity. Return to clinic in 2 weeks for removal of the splint and wound check.
[2019-05-27] MEDS: METOCLOPRAMIDE 10 MG/2 ML INJ IV (12:08)
[2019-05-27] MEDS: HYDROMORPHONE 2 MG INJ IV (12:08)
[2019-05-27] MEDS: fentaNYL 100 MCG/2 ML INJ IV (12:20)
[2019-05-27] MEDS: HYDROCODONE/ACET 5/325 TABLET 1 TAB PO ×2 (12:43→13:13)
--- NOTE | 2019-05-27 12:44 | SUR.PHASEI ---
pt c/o pain still but pain has decreased from 02/12 to 510.
--- NOTE | 2019-05-27 12:59 | SUR.PHASEI ---
Removed oxygen at 2 liters nasal cannula to assess oxygentation saturation on room air. Oxygen 98% on room air.
--- NOTE | 2019-05-27 13:14 | SUR.PHASEI ---
States that pain is improving, rests quiety, but when talking, states I need some real pain medicine. Pt states that 'usually after surgery I don't get pain. Second PO med given. Skin warm and dry, resp unlabored,rests with eyes closed. No non-verbal evidence of pain.
--- NOTE | 2019-05-27 13:31 | SUR.PHASEII ---
Pt resting quietly, no moaning, crying, grimace; when talking about pain, she states I cannot go home like this She expects to have no pain, 2 RNs explained that this is not attainable with a bone fracture and surgery.
--- NOTE | 2019-05-27 13:47 | SUR.PHASEII ---
Spouse to bedside, explained her pain level and expectation. Pt. resting without evidence of pain, eye closed, arouses easily.
--- NOTE | 2019-05-27 14:08 | SUR.PHASEII ---
Sleeping, resp even and regular.
--- NOTE | 2019-05-27 14:40 | SUR.PHASEII ---
Continues to wait for surgeon to sign Rx. Sleeping, comfortable.
--- NOTE | 2019-05-27 15:23 | SUR.PHASEII ---
Sleeping, arouses easily, VSS, Stable, denies pain.
--- NOTE | 2019-05-27 16:52 | SUR.PHASEII ---
8612 Pt and spouse very pleasant, understanding of delay in discharging her. She was very happy with the additional rest. Stated that her pain was starting to increase, too soon for narcotic. Dr. Ordaz spoke with pt/spouse; said that she could take NSAIDS. Fresh ice pack given. check CMS while talking to her.
== END 2019-05-27 16:44 | disposition home or self-care (01) ==
PROVIDERS: PCP Family Medicine; Visit Provider Orthopaedic Surgery Adult Reconstructive Orthopaedic Surgery
PROC: (CPT 25608; principal; 2019-05-27 10:00)
DX: S52.531A Colles' fracture of right radius, initial encounter for closed fracture (principal); W18.30XA Fall on same level, unspecified, initial encounter; E03.9 Hypothyroidism, unspecified
CPT/HCPCS: 25608; J0690; J1100; J1170; J1885; J2250; J2405; J2704; J2765; J3010

== ENCOUNTER 2019-07-23 13:00 | Outpatient (RCR) | payer OTHER, MEDICAID, SELFPAY ==
--- NOTE | 2019-06-11 15:20 | OT.OP.EVAL ---
Visit Care Team Role Provider Type Juan J Soriano MD Primary Care Provider Physician Specialty: Family Practice Address: [address] [place] [address], [id number] Email: [email or web address] Edilberto Ordaz MD Attending Provider Physician Referring Provider Specialty: Orthopedic Surgery Address: [address] [place] [address], [id number] Email: [email or web address] Occup[facility] Therapy Initial Evaluation OT Outpatient Adult Evaluation Start: 06/11/19 14:28 Freq: Status: Active Protocol: Document 06/11/19 14:29 AMS (Rec: 06/11/19 14:32 AMS [email or web address]) General Information Visit Start Time 13:30 Visit Stop Time 14:25 Total Visit Minutes 55 Plan of Care Dates 06/11/2019-09/03/2019 Insurance Information [employer] - Adult; Eval charge only Treatment Setting Outpatient Care Note Type Initial Evaluation Referring Physician Edilberto Ordaz MD Reason for Referral Right wrist pain Precautions status post ORIF Right Wrist Fracture 2 x a week for 4 weeks Identification Confirmed Yes: Photo ID Previous Therapy/Therapies No Therapy Pain Assessment When Pain Assessed pre-tx Pain Present Pain Reported Right Finger Scale Used 3-7; thumb Right Wrist Scale Used 3-7 Goals Objective Measurements 0-10 degrees active right wrist flex. 0-20 degrees active right wrist ext. 0-0 degrees active right wrist [address]. 0-15 degrees active right wrist UD. 0-70 degrees active right forearm supination. 0-75 degrees active right forearm pronation. Opposition to R 3rd digit pad. Pain/discomfort w/ movement of thumb; hesitant towards any movement with R thumb. Unable to execute hook fist, table, or composite fist . Treatment HEP initiated. Written and visual instructions were provided for home recommendations. Active wrist flex, ext, RD, UD, and forearm supination/pronation. Active thumb ROM - opposition to each digit pad as able/base of 5th digit, thumb circles. Tendon glides. All exercises were reviewed in treatment session. Education provided re: importance of ROM. Discussed importance of edema management (with active range of motion, ice). Short Term Goals 1. 0-20 degrees active right wrist flexion. 2. 0-30 degrees active right wrist extension. Sprinkling Truck Driver Goals 1. Poncho will be modified independent with execution of home exercise program utilizing provided written and visual instructions from therapist. 2. Poncho will be able to oppose right thumb to each digit pad x 3 cycles without complaints of pain and/or discomfort. Assessment/Plan Patient Response Good Rehabilitation Potential Good Treatment Assessment Poncho is a 58 year-old right hand dominant female referred to outpatient OT by Edilberto Ordaz MD, status post open reduction internal fixation right distal radius fracture. Poncho reported that she was walking with a water bottle when she slipped and fell on black ice which led to right distal radius fracture. Poncho arrived to initial evaluation w/ splint on. Small surgical tape was on site of wound; nervous to remove surgical strips. She reported that she spoke to the surgeon's nurse yesterday d/t her pain; she said that the nurse told her that she needed to be icing and taking her pain medication . PMH: Significant for arthritis; back pain; thyroid disorder; (+) social history. Evaluation Findings: Right hand dominant female hesitant to move distal R UE; pain of distal R UE being managed w/ pain meds as directed by referring physician; (+) use of R wrist splint; protective posturing of the R UE; distal R UE edema being managed w/ ice as directed by referring physician; decreased AROM of distal R UE (including digits/ wrist); opposition of R thumb to 3rd digit pad; weakness; and decreased ability to actively utilize R UE in day- to-day life with object manipulation/execution of functional tasks. Outpatient OT is recommended to maximize Poncho's ability to successfully utilize dominant R hand in day-to-day life with meaningful task completion. Home Exercise Program Please refer to treatment section of note for specific details. Comment 12 weeks Comment 2-3 times per week Therapeutic Contents Active Range of Motion, Adaptive Equipment Education, Client Education,Cognitive Skills Development,Functional Activities,Home Exercise Program,Joint Protection, Manual Therapy,Education, Neurodevelopment Treatment, Neuromuscular Re-Education, Self-Care,Stretching/ Flexibility Activities, Therapeutic Activities, Therapeutic Exercises, Modalities,Sensory Re- education Modalities As Needed,As Prescribed Types of Modalities Contrast Bath,E-Stim, Functional Stimulation (FES),T .E.N. Stimulation,TENS Placement/Application, Ultrasound Additional Types of Modalities Heat/Paraffin
--- NOTE | 2019-06-15 15:32 | OT.OP.TRT ---
Visit Care Team Role Provider Type Juan J Soriano MD Primary Care Provider Physician Specialty: Family Practice Address: [address] [place] [address], [id number] Email: [email or web address] Edilberto Ordaz MD Attending Provider Physician Referring Provider Specialty: Orthopedic Surgery Address: [address] [place] [address], [id number] Email: [email or web address] Occupational Therapy Treatment Note OT Outpatient Treatment Note - Adult Start: 06/11/19 14:28 Freq: Status: Active Protocol: Document 06/15/19 15:18 AMS (Rec: 06/15/19 15:32 AMS [email or web address]) OT Outpatient Adult Treatment Note Session Time Visit Start Time 13:30 Visit Stop Time 14:18 Total Visit Minutes 48 Visit Information Plan of Care Dates 06/11/2019-09/03/2019 Insurance Information [employer] Setting Treatment Setting Outpatient Care Visit Type Note Type Treatment Note General Information General Information Poncho is a 58 year-old right hand dominant female referred to outpatient OT by Edilberto Ordaz MD, status post open reduction internal fixation right distal radius fracture. Poncho reported that she was walking with a water bottle when she slipped and fell on black ice which led to right distal radius fracture. Poncho arrived to initial evaluation w/ splint on. Small surgical tape was on site of wound; nervous to remove surgical strips. She reported that she spoke to the surgeon's nurse yesterday d/t her pain; she said that the nurse told her that she needed to be icing and taking her pain medication . PMH: Significant for arthritis; back pain; thyroid disorder; (+) social history. - Subjective Identification Type Name Identification Reconciled With Medical Record Observations Is there anything else that I can do to help it heal faster ? per Poncho. I see the surgeon tomorrow per Poncho. I took some of the surgical strips off. Patient/Caregiver Compliance with Home Fair Exercise Program Comments w/ use of written/visual info; encouragement required at this time - Objective Objective Measurements 1 surgical strip intact; wound not fully healed; mild swelling. Introduced gravity assisted ROM and 5 second hold with home exercises/treatment exercises. Able to oppose to 5th digit pad. Short Term Goals 1. 0-20 degrees active right wrist flexion. 2. 0-30 degrees active right wrist extension. Alf Goals 1. oPncho will be modified independent with execution of home exercise program utilizing provided written and visual instructions from therapist. 2. Poncho will be able to oppose right thumb to each digit pad x 3 cycles without complaints of pain and/or discomfort. - Treatment 1 Descriptor Ultrasound. 20% duty cycle. 1. 8 w/cm2. Address swelling. Radial side of right wrist. Skin intact pre- and post- treatment. Exercises 6 Descriptor Finger AROM. Tendon glides. Joint blocking w/ DIP joint flexion. Hook fist. Side Right Body Position Seated Sets 1 Repetitions 10 5 Descriptor Thumb AROM. Focus on increasing size of thumb circles. Side Right Body Position Seated Sets 1 Repetitions 10 Complexity Upgraded 4 Descriptor Wrist UD. [place] assisted w/ 5 sec hold. Side Right Body Position Seated Sets 1 Repetitions 10 3 Descriptor Wrist flex. Wrist ext. [place] assisted w/ 5 sec hold. Side Right Body Position Seated Sets 1 Repetitions 10 2 Descriptor Forearm supination/pronation. Side Right Body Position Seated Sets 1 Repetitions 10 1 Descriptor HEP/POC. Decreased active range of motion noted w/ wrist flex, wrist ext, wrist RD/UD; thus, initiated gravity assisted exercises. Decreased active flexion of DIP joints; thus, initiated active assist/ joint blocking. Initiated 5 sec hold with ROM exercises. Written and visual instructions provided; all exercises reviewed in treatment session. Copy placed in paper chart. - Assessment Patient Response to Treatment Fair Rehab Potential Good Assessment of Improvement Increased tolerance for ROM/ movement noted on this date. Decreased arc of ROM w/ TT exercises. Thus, introduced gravity assist. Improving thumb range of motion noted; able to oppose to 5th digit pad with R thumb w/ visual feedback. Did recommend focus on large circles with thumb/ with all ROM as tolerated/able . Poncho verbalized understanding. Continued outpatient OT is recommended to maximize Poncho's ability to successfully utilize dominant R hand in day-to-day life with meaningful task completion. Recommendations: ROM of distal UE; in-hand manip; digit ROM Home Exercise Program Please refer to treatment section of note for specific details. - Plan Therapy Recommendations Continue with Current Program, Advance per Rehabilitation Protocol
--- NOTE | 2019-06-18 15:15 | OT.OP.TRT ---
Visit Care Team Role Provider Type Juan J Soriano MD Primary Care Provider Physician Specialty: Family Practice Address: [address] [place] [address], [address] Email: [email or web address] Edilberto Ordaz MD Attending Provider Physician Referring Provider Specialty: Orthopedic Surgery Address: [address] [place] [address], [id number] Email: Occupational Therapy Treatment Note OT Outpatient Treatment Note - Adult Start: 06/11/19 14:28 Freq: Status: Active Protocol: Document 06/18/19 14:58 AMS (Rec: 06/18/19 15:15 AMS [email or web address]) OT Outpatient Adult Treatment Note Session Time Visit Start Time 12:30 Visit Stop Time 13:20 Total Visit Minutes 48 Visit Information Plan of Care Dates 06/11/2019-09/03/2019 Insurance Information [employer] Setting Treatment Setting Outpatient Care Visit Type Note Type Treatment Note General Information General Information Poncho is a 58 year-old right hand dominant female referred to outpatient OT by Edilberto Ordaz MD, status post open reduction internal fixation right distal radius fracture. Poncho reported that she was walking with a water bottle when she slipped and fell on black ice which led to right distal radius fracture. Poncho arrived to initial evaluation w/ splint on. Small surgical tape was on site of wound; nervous to remove surgical strips. She reported that she spoke to the surgeon's nurse yesterday d/t her pain; she said that the nurse told her that she needed to be icing and taking her pain medication . PMH: Significant for arthritis; back pain; thyroid disorder; (+) social history. - Subjective Identification Type Name Identification Reconciled With Medical Record Observations I saw Dr. Soriano yesterday per Poncho. Patient/Caregiver Compliance with Home Good Exercise Program Comments w/ use of written/visual info; encouragement required at this time - Objective Objective Measurements 1 surgical strip still intact. Wound not fully healed. Mild swelling. ROM Measurements were taken pre-treatment: 0-5 degrees active R wrist RD (5 degree improvement) 0-15 degrees active R wrist UD (no change in ROM) 0-15 degrees active R wrist flex (5 degree improvement) 0-30 degrees active R wrist ext (10 degree improvement) Dynamometer II Sweep Molder Strength Testing was performed: Avg 4.0# of force w/ R channel opener outsoles Avg 48.0# of force w/ L channel opener outsoles Short Term Goals 1. 0-20 degrees active right wrist flexion. 06/18/19= 50% met; 0-10 degrees 2. 0-40 degrees active right wrist extension. 06/18/19= GOAL UPGRADED; 0-30 degrees active wrist ext GOALS MET 0-30 degrees active right wrist extension. 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 Poncho will be modified independent with execution of home exercise program utilizing provided written and visual instructions from therapist. 2. Birute will present with increased ability to engage in meaningful activities d/t improved channel opener outsoles strength; this will be evidenced by Poncho averaging 15.0# of force with right dynamometer II strength testing. 3. Birute will present with increased ability to actively engage in meaningful activities; this will be evidenced by Poncho's report of ability to return to work. GOALS MET Able to oppose right thumb to each digit pad x 3 cycles. * MET 06/18/19 - Treatment 1 Descriptor Ultrasound. 20% duty cycle. 1. 8 w/cm2. Address swelling. Radial side of right wrist. Skin intact pre- and post- treatment. Exercises 8 Descriptor In-hand object manipulation. 7 Descriptor Bimanual coordination of upper extremities. Ball pass forearms in neutral 'tree sway '. B Ball tap w/ forearms in pronation facilitation of wrist extension. Single ball pass w/ forearm supination <-> pronation, wrist ext <-> flex . 6 Descriptor Finger AROM. Tendon glides. Side Right Body Position Seated 5 Descriptor Thumb AROM. Thumb extension. Thumb opposition. Thumb large circles. Thumb radial abduction. Side Right Body Position Seated Complexity Upgraded 4 Descriptor Wrist UD. [place] assisted w/ 5 sec hold. Side Right Body Position Seated Sets 1 Repetitions 10 3 Descriptor Wrist flex. Wrist ext. [place] assisted w/ 5 sec hold. Side Right Body Position Seated Sets 1 Repetitions 10 2 Descriptor Forearm supination/pronation. Side Right Body Position Seated Sets 1 Repetitions 10 1 Descriptor HEP/POC. Decreased active range of motion noted w/ wrist flex, wrist ext, wrist RD/UD; thus, initiated gravity assisted exercises. Decreased active flexion of DIP joints; thus, initiated active assist/ joint blocking. Initiated 5 sec hold with ROM exercises. Written and visual instructions provided; all exercises reviewed in treatment session. Copy placed in paper chart. - Assessment Patient Response to Treatment Good Rehab Potential Good Assessment of Improvement Improving active thumb ROM and wrist ROM; met wrist ext short term goal, as well as thumb opposition goal. (+) response to symmetrical coordination of UEs and use of object; (+) response to repetitive/rhythmic movement patterns of the upper extremities. Concern verbalized by Poncho in re: body's response to US; thus, did not repeat modality on this date. Continued outpatient OT is recommended to maximize Poncho's ability to successfully utilize dominant R hand in day-to-day life with meaningful task completion. Recommendations: ROM of distal UE; in-hand manip; digit ROM Home Exercise Program Please refer to treatment section of note for specific details. - Plan Therapy Recommendations Continue with Current Program, Advance per Rehabilitation Protocol
--- NOTE | 2019-06-22 10:01 | OT.OP.TRT ---
Visit Care Team Role Provider Type Juan J Soriano MD Primary Care Provider Physician Specialty: Family Practice Address: [address] [place] [address], [id number] Email: [email or web address] Edilberto Ordaz MD Attending Provider Physician Referring Provider Specialty: Orthopedic Surgery Address: [address] [place] [address], [address] Email: [email or web address] Occupational Therapy Treatment Note OT Outpatient Treatment Note - Adult Start: 06/11/19 14:28 Freq: Status: Active Protocol: Document 06/22/19 09:44 AMS (Rec: 06/22/19 10:01 AMS [email or web address]) OT Outpatient Adult Treatment Note Session Time Visit Start Time 08:30 Visit Stop Time 09:18 Total Visit Minutes 48 Visit Information Plan of Care Dates 06/11/2019-09/03/2019 Insurance Information [employer] Setting Treatment Setting Outpatient Care Visit Type Note Type Treatment Note General Information General Information Poncho is a 58 year-old right hand dominant female referred to outpatient OT by Edilberto Ordaz MD, status post open reduction internal fixation right distal radius fracture. Poncho reported that she was walking with a water bottle when she slipped and fell on black ice which led to right distal radius fracture. Poncho arrived to initial evaluation w/ splint on. Small surgical tape was on site of wound; nervous to remove surgical strips. She reported that she spoke to the surgeon's nurse yesterday d/t her pain; she said that the nurse told her that she needed to be icing and taking her pain medication . PMH: Significant for arthritis; back pain; thyroid disorder; (+) social history. - Subjective Identification Type Name Identification Reconciled With Medical Record Observations Is this normal per Poncho in re: bruising of volar surface of right wrist. Patient/Caregiver Compliance with Home Good Exercise Program Comments w/ use of written/visual info; encouragement required at this time - Objective Objective Measurements Removal of surgical tape. Wound not fully healed. (+) Mild swelling. Bruising of volar right wrist. 06/18/19= ROM Measurements were taken pre-treatment: 0-5 degrees active R wrist RD (5 degree improvement) 0-15 degrees active R wrist UD (no change in ROM) 0-15 degrees active R wrist flex (5 degree improvement) 0-30 degrees active R wrist ext (10 degree improvement) Dynamometer II Supervisor Mill Strength Testing was performed: Avg 4.0# of force w/ R corn miller Avg 48.0# of force w/ L corn miller Short Term Goals 1. 0-20 degrees active right wrist flexion. 06/18/19= 50% met; 0-10 degrees 2. 0-40 degrees active right wrist extension. 06/18/19= GOAL UPGRADED; 0-30 degrees active wrist ext GOALS MET 0-30 degrees active right wrist extension. *MET 06/18/19 [facility] Goals 1. Poncho will be modified independent with execution of home exercise program utilizing provided written and visual instructions from therapist. 2. Poncho will present with increased ability to engage in meaningful activities d/t improved corn miller strength; this will be evidenced by Poncho averaging 15.0# of force with right dynamometer II strength testing. 3. Poncho will present with increased ability to actively engage in meaningful activities; this will be evidenced by Poncho's report of ability to return to work. GOALS MET Able to oppose right thumb to each digit pad x 3 cycles. * MET 06/18/19 - Exercises 8 Descriptor In-hand object manipulation. Complex rotation. Translation. Shift. Separation of 2 sides of hand. Complexity Upgraded 7 Descriptor Bimanual coordination of upper extremities. Light cane wrist ext/flex w/ forearm pronation . Light cane spin w/ focus on right thumb manipulation. 6 Descriptor Finger AROM. Tendon glides. Full fist flexion ( transitioned to standard width pen). Finger dissociation ( individual finger tap to palm) . Side Right Body Position Seated 5 Descriptor Thumb AROM. Thumb extension. Thumb opposition. Thumb large circles. Thumb radial abduction. Side Right Body Position Seated 4 Descriptor Symmetrical coordination of upper extremities. Wrist extension. Wrist flexion. Wrist RD/UD. 1 Descriptor HEP/POC. Recommended transitioning to use of standard width pen w/ gross grasp to support ROM of digits w/ tactile/visual feedback. Recommended carry-over of in- hand manipulation activities completed in treatment session (complex rotation and separation of 2 sides of hand) . Discussed importance of managing swelling via elevation, light massage, active movement, and use of ice. - Assessment Patient Response to Treatment Good Rehab Potential Good Assessment of Improvement (-) presence of surgical tape; wound not fully healed ( surgery site). Mild swelling. Bruising to volar, ulnar surface of right wrist (purple /yellow discoloration noted). Concern verbalized by pt re: swelling/bruising/pain presence. Reviewed swelling management techniques and following doctor's orders re: pain management. Improving in- hand manipulation and tolerance for movement of distal UE compared to time of initial evaluation. Continued outpatient OT is recommended to maximize Birute's ability to successfully utilize dominant R hand in day-to-day life with meaningful task completion. Recommendations: AROM; symmetrical UE motor planning; in-hand object manipulation Home Exercise Program Please refer to treatment section of note for specific details. - Plan Therapy Recommendations Continue with Current Program, Advance per Rehabilitation Protocol
--- NOTE | 2019-06-24 11:46 | OT.OP.TRT ---
Visit Care Team Role Provider Type Juan J Soriano MD Primary Care Provider Physician Specialty: Family Practice Address: [address] [place] [address], [address] Email: [email or web address] Edilberto Ordaz MD Attending Provider Physician Referring Provider Specialty: Orthopedic Surgery Address: [address] [place] [address], [address] Email: [email or web address] Occupational Therapy Treatment Note OT Outpatient Treatment Note - Adult Start: 06/11/19 14:28 Freq: Status: Active Protocol: Document 06/24/19 09:44 AMS (Rec: 06/24/19 10:33 AMS [email or web address]) OT Outpatient Adult Treatment Note Session Time Visit Start Time 09:30 Visit Stop Time 10:20 Total Visit Minutes 50 Visit Information Plan of Care Dates 06/11/2019-09/03/2019 Insurance Information [employer] Setting Treatment Setting Outpatient Care Visit Type Note Type Treatment Note General Information General Information Poncho is a 58 year-old right hand dominant female referred to outpatient OT by Edilberto Ordaz MD, status post open reduction internal fixation right distal radius fracture. Poncho reported that she was walking with a water bottle when she slipped and fell on black ice which led to right distal radius fracture. Poncho arrived to initial evaluation w/ splint on. Small surgical tape was on site of wound; nervous to remove surgical strips. She reported that she spoke to the surgeon's nurse yesterday d/t her pain; she said that the nurse told her that she needed to be icing and taking her pain medication . PMH: Significant for arthritis; back pain; thyroid disorder; (+) social history. - Subjective Identification Type Name Identification Reconciled With Medical Record Observations I have an appointment next week with the orthopedic doctor per Poncho. Patient/Caregiver Compliance with Home Good Exercise Program Comments w/ use of written/visual info; encouragement required at this time - Objective Objective Measurements Mild swelling. Minor bruising (fading in presentation volar radial surface of R forearm; fading in presentation mid ulnar surface of forearm). 06/24/19= ROM Measurements taken brief obj manip/distal UE warm-up: 0-5 degrees active R wrist RD (no change) 0-20 degrees active R wrist UD (5 degree improvement) 0-15 degrees active R wrist flex (no change) 0-35 degrees active R wrist ext (5 degree improvement) Dynamometer II Inspector Barrel Strength Testing was performed 06/18/19: Avg 4.0# of force w/ R corporate real estate manager Avg 48.0# of force w/ L corporate real estate manager Short Term Goals 1. 0-20 degrees active right wrist flexion. 06/24/19= 50% met; 0-15 degrees 2. 0-40 degrees active right wrist extension. 06/24/19= 75% met; 0-35 degrees active wrist ext GOALS MET 0-30 degrees active right wrist extension. 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 Poncho will be modified independent with execution of home exercise program utilizing provided written and visual instructions from therapist. 2. Poncho will present with increased ability to engage in meaningful activities d/t improved corporate real estate manager strength; this will be evidenced by Poncho averaging 15.0# of force with right dynamometer II strength testing. 3. Poncho will present with increased ability to actively engage in meaningful activities; this will be evidenced by Poncho's report of ability to return to work. GOALS MET Able to oppose right thumb to each digit pad x 3 cycles. * MET 06/18/19 - Exercises 8 Descriptor In-hand object manipulation. Complex rotation. Translation. Shift. Separation of 2 sides of hand. Complexity Upgraded 7 Descriptor Bimanual coordination of upper extremities. Light cane wrist ext/flex w/ forearm pronation . Light cane spin w/ focus on right thumb manipulation. 6 Descriptor Finger AROM. Tendon glides. Full fist flexion ( transitioned to standard width pen). Finger dissociation ( individual finger tap to palm) . Side Right Body Position Seated 5 Descriptor Thumb AROM. Thumb extension palm TT. Thumb opposition. Thumb flexion. Thumb radial abduction. Thumb palmar abduction. Thumb adduction. [facility] ROM. Side Right Body Position Seated 4 Descriptor Symmetrical coordination of upper extremities. Wrist extension. Wrist flexion. Wrist RD/UD. 1 Descriptor HEP/POC. Finger walks. Provided written and visual instructions. Copy placed in paper chart. Practiced in treatment session. Patient denied questions. Complexity Upgraded - Assessment Patient Response to Treatment Good Rehab Potential Good Assessment of Improvement Wound not fully healed; mild swelling; bruising fading ulnar forearm and volar wrist. Slight improvement in AROM w/ UD and wrist ext. Support required to discourage larger compensatory motor movements; ROM at wrist level versus elbow. Introduced finger walks at wall to support sh ROM; recommend considering execution to side of body. Continued outpatient OT is recommended to maximize Birute 's ability to successfully utilize dominant R hand in day -to-day life with meaningful task completion. Recommendations: AROM; symmetrical UE motor planning; in-hand object manipulation Home Exercise Program Please refer to treatment section of note for specific details. - Plan Therapy Recommendations Continue with Current Program, Advance per Rehabilitation Protocol
--- NOTE | 2019-06-26 16:54 | OT.OP.TRT ---
Visit Care Team Role Provider Type Juan J Soriano MD Primary Care Provider Physician Specialty: Family Practice Address: [address] [place] [address], [address] Email: [email or web address] Edilberto Ordaz MD Attending Provider Physician Referring Provider Specialty: Orthopedic Surgery Address: [address] [place] [address], [address] Email: [email or web address] Occupational Therapy Treatment Note OT Outpatient Treatment Note - Adult Start: 06/11/19 14:28 Freq: Status: Active Protocol: Document 06/26/19 13:35 AMS (Rec: 06/26/19 16:54 AMS [email or web address]) OT Outpatient Adult Treatment Note Session Time Visit Start Time 13:30 Visit Stop Time 14:18 Total Visit Minutes 48 Visit Information Plan of Care Dates 06/11/2019-09/03/2019 Insurance Information [employer] Setting Treatment Setting Outpatient Care Visit Type Note Type Treatment Note General Information General Information Poncho is a 58 year-old right hand dominant female referred to outpatient OT by Edilberto Ordaz MD, status post open reduction internal fixation right distal radius fracture. Poncho reported that she was walking with a water bottle when she slipped and fell on black ice which led to right distal radius fracture. Poncho arrived to initial evaluation w/ splint on. Small surgical tape was on site of wound; nervous to remove surgical strips. She reported that she spoke to the surgeon's nurse yesterday d/t her pain; she said that the nurse told her that she needed to be icing and taking her pain medication . PMH: Significant for arthritis; back pain; thyroid disorder; (+) social history. - Subjective Identification Type Name Identification Reconciled With Medical Record Observations I have been icing for the swelling per Poncho. Patient/Caregiver Compliance with Home Good Exercise Program Comments w/ use of written/visual info; encouragement required at this time - Objective Objective Measurements Mild swelling. Minor bruising (fading in presentation volar radial surface of R forearm; fading in presentation mid ulnar surface of forearm). 06/26/19= ROM Measurements: 0-20 degrees active R wrist flex (no change) 0-40 degrees active R wrist ext (5 degree improvement) Dynamometer II Dance Hall Host/Hostess Strength Testing was performed 06/18/19: Avg 4.0# of force w/ R assistant analyst Avg 48.0# of force w/ L assistant analyst Short Term Goals 1. 0-30 degrees active right wrist flexion. 06/26/19= GOAL UPGRADED 2. 0-10 degrees active right wrist radial deviation. = NEW GOAL GOALS MET 0-30 degrees active right wrist extension. *MET 06/18/19 0-20 degrees active right wrist flexion. *MET 06/26/19 0-40 degrees active right wrist extension. *MET 06/26/19 Dishtank Operator Goals 1. Poncho will be modified independent with execution of home exercise program utilizing provided written and visual instructions from therapist. 2. Poncho will present with increased ability to engage in meaningful activities d/t improved assistant analyst strength; this will be evidenced by Poncho averaging 15.0# of force with right dynamometer II strength testing. 3. Poncho will present with increased ability to actively engage in meaningful activities; this will be evidenced by Poncho's report of ability to return to work. GOALS MET Able to oppose right thumb to each digit pad x 3 cycles. * MET 06/18/19 - Exercises 8 Descriptor In-hand object manipulation. Complex rotation. Translation. Shift. Separation of 2 sides of hand. Multiple object manipulation. Complexity Upgraded 7 Descriptor Bimanual coordination of upper extremities. 6 Descriptor Finger AROM. Tendon glides. Side Right Body Position Seated 5 Descriptor Thumb AROM. Thumb extension palm TT. Thumb opposition (pads of digits/ base). Thumb flexion. Thumb radial abduction. Thumb palmar abduction. Thumb adduction. [facility] ROM. Side Right Body Position Seated 4 Descriptor Symmetrical coordination of upper extremities. 2 Descriptor Funtional movement patterns. Combined elbow extension -> elbow flexion w/ wrist flexion (touch shoulder). Complexity Upgraded 1 Descriptor HEP/POC. Discussed encouraging functional movement patterns w/ splint (e.g., arm swing w/ gait when walking). Recommended carry-over of small object manipulation as performed in treatment session . Patient denied questions. Complexity Upgraded - Assessment Patient Response to Treatment Good Rehab Potential Good Assessment of Improvement Wound not fully healed at this time; mild bruising. Swelling being managed via elevation, gentle massage, and icing. Improving active wrist flex/ ext of wrist; evidenced by meeting short term goals in these areas. Goals upgraded appropriately. Initiated functional movement patterns ( arm swing w/ use of splint w/ walks). Continued outpatient OT is recommended to maximize Birute's ability to successfully utilize dominant R hand in day-to-day life with meaningful task completion. Recommendations: AROM; symmetrical UE motor planning; in-hand object manipulation Home Exercise Program Please refer to treatment section of note for specific details. - Plan Therapy Recommendations Continue with Current Program, Advance per Rehabilitation Protocol
--- NOTE | 2019-06-29 14:30 | OT.OP.TRT ---
Visit Care Team Role Provider Type Juan J Soriano MD Primary Care Provider Physician Specialty: Family Practice Address: [address] [place] [address], [id number] Email: [email or web address] Edilberto Ordaz MD Attending Provider Physician Referring Provider Specialty: Orthopedic Surgery Address: [address] [place] [address], [address] Email: [email or web address] Occupational Therapy Treatment Note OT Outpatient Treatment Note - Adult Start: 06/11/19 14:28 Freq: Status: Active Protocol: Document 06/29/19 13:04 AMS (Rec: 06/29/19 14:29 AMS [email or web address]) OT Outpatient Adult Treatment Note Session Time Visit Start Time 12:30 Visit Stop Time 13:16 Total Visit Minutes 46 Visit Information Plan of Care Dates 06/11/2019-09/03/2019 Insurance Information [employer] Setting Treatment Setting Outpatient Care Visit Type Note Type Treatment Note General Information General Information Poncho is a 58 year-old right hand dominant female referred to outpatient OT by Edilberto Ordaz MD, status post open reduction internal fixation right distal radius fracture. Poncho reported that she was walking with a water bottle when she slipped and fell on black ice which led to right distal radius fracture. Poncho arrived to initial evaluation w/ splint on. Small surgical tape was on site of wound; nervous to remove surgical strips. She reported that she spoke to the surgeon's nurse yesterday d/t her pain; she said that the nurse told her that she needed to be icing and taking her pain medication . PMH: Significant for arthritis; back pain; thyroid disorder; (+) social history. - Subjective Identification Type Name Identification Reconciled With Medical Record Observations I have been doing my exercises. I have an appointment on Saturday with the surgeon. They were going to have it on the but I wanted it earlier per Poncho. Patient/Caregiver Compliance with Home Good Exercise Program Comments w/ use of written/visual info; encouragement required at this time - Objective Objective Measurements Mild swelling. 06/26/19= ROM Measurements: 0-20 degrees active R wrist flex (no change) 0-40 degrees active R wrist ext (5 degree improvement) 06/18/19= ROM Measurements were taken pre-treatment: 0-5 degrees active R wrist RD (5 degree improvement) 0-15 degrees active R wrist UD (no change in ROM) 0-15 degrees active R wrist flex (5 degree improvement) 0-30 degrees active R wrist ext (10 degree improvement) Dynamometer II Dental Specialist Strength Testing was performed 06/18/19: Avg 4.0# of force w/ R sleeve baster Avg 48.0# of force w/ L sleeve baster Short Term Goals 1. 0-30 degrees active right wrist flexion. 06/29/19= 50% met 2. 0-10 degrees active right wrist radial deviation. = 50% met GOALS MET 0-30 degrees active right wrist extension. *MET 06/18/19 0-20 degrees active right wrist flexion. *MET 06/26/19 0-40 degrees active right wrist extension. *MET 06/26/19 Penitentiary Goals 1. Poncho will be modified independent with execution of home exercise program utilizing provided written and visual instructions from therapist. 2. Poncho will present with increased ability to engage in meaningful activities d/t improved sleeve baster strength; this will be evidenced by Poncho averaging 15.0# of force with right dynamometer II strength testing. 3. Poncho will present with increased ability to actively engage in meaningful activities; this will be evidenced by Poncho's report of ability to return to work. GOALS MET Able to oppose right thumb to each digit pad x 3 cycles. * MET 06/18/19 - Exercises 8 Descriptor In-hand object manipulation. Complex rotation. Translation. Shift. Separation of 2 sides of hand. 6 Descriptor Finger AROM. Tendon glides. Side Right Body Position Seated 5 Descriptor Thumb AROM. Thumb extension palm TT. Thumb opposition (pads of digits/ base). Thumb flexion. Thumb radial abduction. Thumb palmar abduction. Thumb adduction. CMC ROM. Side Right Body Position Seated 4 Descriptor Symmetrical coordination of upper extremities. B forearms rested on bilateral arm rests; wrist flexion combined with finger walks. 2 Descriptor Funtional movement patterns. Combined elbow extension --> elbow flexion w/ wrist flexion with finger massage. 1 Descriptor HEP/POC. Discussed additional options to support in-hand object manipulation/motor coordination; discussed methods to continue to facilitate active ROM of wrist (via functional object manipulation/bimanual coordination). Patient denied questions. - Assessment Patient Response to Treatment Good Rehab Potential Good Assessment of Improvement Swelling being managed via elevation, gentle massage, and icing. (+) response to functional object manipulation ; thus, therapist focus on incorporation of bimanual tasks and functional motor planning of the distal R UE. Continued outpatient OT is recommended to maximize Birute 's ability to successfully utilize dominant R hand in day -to-day life with meaningful task completion. Recommendations: AROM; symmetrical UE motor planning; in-hand object manipulation Home Exercise Program Please refer to treatment section of note for specific details. - Plan Therapy Recommendations Continue with Current Program, Advance per Rehabilitation Protocol
--- NOTE | 2019-06-30 15:03 | OT.OP.TRT ---
Visit Care Team Role Provider Type Juan J Soriano MD Primary Care Provider Physician Specialty: Family Practice Address: [address] [place] [address], [id number] Email: [email or web address] Edilberto Ordaz MD Attending Provider Physician Referring Provider Specialty: Orthopedic Surgery Address: [address] [place] [address], [id number] Email: [email or web address] Occupational Therapy Treatment Note OT Outpatient Treatment Note - Adult Start: 06/11/19 14:28 Freq: Status: Active Protocol: Document 06/30/19 14:40 AMS (Rec: 06/30/19 15:03 AMS [email or web address]) OT Outpatient Adult Treatment Note Session Time Visit Start Time 09:30 Visit Stop Time 10:15 Total Visit Minutes 45 Visit Information Plan of Care Dates 06/11/2019-09/03/2019 Insurance Information [employer] Setting Treatment Setting Outpatient Care Visit Type Note Type Treatment Note General Information General Information Poncho is a 58 year-old right hand dominant female referred to outpatient OT by Edilberto Ordaz MD, status post open reduction internal fixation right distal radius fracture. Poncho reported that she was walking with a water bottle when she slipped and fell on black ice which led to right distal radius fracture. Poncho arrived to initial evaluation w/ splint on. Small surgical tape was on site of wound; nervous to remove surgical strips. She reported that she spoke to the surgeon's nurse yesterday d/t her pain; she said that the nurse told her that she needed to be icing and taking her pain medication . PMH: Significant for arthritis; back pain; thyroid disorder; (+) social history. - Subjective Identification Type Name Identification Reconciled With Medical Record Observations It is always worse in the mornings. I took half a pain pill this morning per Poncho. Patient/Caregiver Compliance with Home Good Exercise Program Comments w/ use of written/visual info; encouragement required at this time - Objective Objective Measurements Mild swelling. Wound nearly healed. 06/30/19= ROM Measurements end of session: 0-30 degrees active R wrist flex 0-40 degrees active R wrist ext 0-5 degrees active R wrist RD 0-15 degrees active R wrist UD Dynamometer II Neuro Ophthalmologist/ Pinchometer Strength Testing was performed 06/18/19: Avg 5.0# of force w/ R trial manager Avg 6.0# of force w/ R lateral pinch vs Avg 14.0# of force L lateral pinch Avg 4.5# of force w/ R tip pinch vs Avg 14.0# of force L tip pinch 06/18/19= ROM Measurements were taken pre-treatment: 0-5 degrees active R wrist RD (5 degree improvement) 0-15 degrees active R wrist UD (no change in ROM) 0-15 degrees active R wrist flex (5 degree improvement) 0-30 degrees active R wrist ext (10 degree improvement) Dynamometer II Neuro Ophthalmologist Strength Testing was performed 06/18/19: Avg 4.0# of force w/ R trial manager Avg 48.0# of force w/ L trial manager Short Term Goals 1. 0-30 degrees active right wrist flexion. 06/29/19= 50% met 2. 0-10 degrees active right wrist radial deviation. = 50% met GOALS MET 0-30 degrees active right wrist extension. *MET 06/18/19 0-20 degrees active right wrist flexion. *MET 06/26/19 0-40 degrees active right wrist extension. *MET 06/26/19 Ophthalmic Dispenser Goals 1. Poncho will be modified independent with execution of home exercise program utilizing provided written and visual instructions from therapist. 2. Poncho will present with increased ability to engage in meaningful activities d/t improved trial manager strength; this will be evidenced by Poncho averaging 15.0# of force with right dynamometer II strength testing. 06/30/19= 3. Poncho will present with increased ability to actively engage in meaningful activities; this will be evidenced by Poncho's report of ability to return to work. GOALS MET Able to oppose right thumb to each digit pad x 3 cycles. * MET 06/18/19 - Exercises 8 Descriptor In-hand object manipulation. Complex rotation. Translation. Shift. Separation of 2 sides of hand. 6 Descriptor Finger AROM. Tendon glides. Side Right Body Position Seated 5 Descriptor Thumb AROM. Thumb extension palm TT. Thumb opposition (pads of digits/ base). Thumb flexion. Thumb radial abduction. Thumb palmar abduction. Thumb adduction. CMC ROM. Side Right Body Position Seated 4 Descriptor Symmetrical coordination of upper extremities 2 Descriptor Funtional movement patterns. B sh finger walks w/ wrist flex and elbow flex <-> elbow and wrist ext (forearm supination) . 1 Descriptor HEP/POC. Recommended continued use of splint with completion of light activities; instructed to avoid heavy activities. Recommended finger walks on B sh with elbow flex and wrist flex <-> elbow ext and wrist ext (maintaining forearm supination); discussed importance of utilizing light weight objects in hands. Discussed alt to use of dice to support multiple in-hand obj manipulation. Education re : importance of initiating desensitization/scar tissue management once wound has healed. Provided green theraputty for home use; instructed in strengthening of trial manager only at this time. Patient denied questions. Complexity Upgraded - Assessment Patient Response to Treatment Good Rehab Potential Good Assessment of Improvement Swelling being managed via elevation, gentle massage, and icing. Wound not fully healed ; however, began education re: importance of desensitization /scar tissue management. Reviewed importance of continued use of splint w/ execution of light activities until directed otherwise (at least 6 weeks); reviewed need to avoid heavy activities with or without splint. Decreased trial manager/digit strength. Provided green theraputty for trial manager strengthening only; instructed in care and storage of theraputty. Continued outpatient OT is recommended to maximize Poncho's ability to successfully utilize dominant R hand in day-to-day life with meaningful task completion. Recommendations: AROM; symmetrical UE motor planning; in-hand object manipulation Home Exercise Program Please refer to treatment section of note for specific details. - Plan Therapy Recommendations Continue with Current Program, Advance per Rehabilitation Protocol
--- NOTE | 2019-07-02 13:30 | OT.OP.TRT ---
Visit Care Team Role Provider Type Juan J Soriano MD Primary Care Provider Physician Specialty: Family Practice Address: [address] [place] [address], [address] Email: [email or web address] Edilberto Ordaz MD Attending Provider Physician Referring Provider Specialty: Orthopedic Surgery Address: [address] [place] [address], [id number] Email: [email or web address] Occupational Therapy Treatment Note OT Outpatient Treatment Note - Adult Start: 06/11/19 14:28 Freq: Status: Active Protocol: Document 07/02/19 15:30 AMS (Rec: 07/03/19 09:20 AMS [email or web address]) OT Outpatient Adult Treatment Note Session Time Visit Start Time 12:30 Visit Stop Time 13:15 Total Visit Minutes 45 Visit Information Plan of Care Dates 06/11/2019-09/03/2019 Insurance Information [employer] Setting Treatment Setting Outpatient Care Visit Type Note Type Treatment Note General Information General Information Poncho is a 58 year-old right hand dominant female referred to outpatient OT by Edilberto Ordaz MD, status post open reduction internal fixation right distal radius fracture. Poncho reported that she was walking with a water bottle when she slipped and fell on black ice which led to right distal radius fracture. Poncho arrived to initial evaluation w/ splint on. Small surgical tape was on site of wound; nervous to remove surgical strips. She reported that she spoke to the surgeon's nurse yesterday d/t her pain; she said that the nurse told her that she needed to be icing and taking her pain medication . PMH: Significant for arthritis; back pain; thyroid disorder; (+) social history. - Subjective Identification Type Name Identification Reconciled With Medical Record Observations I see the surgeon tomorrow per Poncho. I think that I might have done too much yesterday. Patient/Caregiver Compliance with Home Good Exercise Program Comments w/ use of written/visual info; encouragement required at this time - Objective Objective Measurements Mild swelling. Wound nearly healed. 06/30/19= ROM Measurements end of session: 0-30 degrees active R wrist flex 0-40 degrees active R wrist ext 0-5 degrees active R wrist RD 0-15 degrees active R wrist UD Dynamometer II Dry Can Tender/ Pinchometer Strength Testing was performed 06/18/19: Avg 5.0# of force w/ R desktop engineer Avg 6.0# of force w/ R lateral pinch vs Avg 14.0# of force L lateral pinch Avg 4.5# of force w/ R tip pinch vs Avg 14.0# of force L tip pinch 06/18/19= ROM Measurements were taken pre-treatment: 0-5 degrees active R wrist RD (5 degree improvement) 0-15 degrees active R wrist UD (no change in ROM) 0-15 degrees active R wrist flex (5 degree improvement) 0-30 degrees active R wrist ext (10 degree improvement) Dynamometer II Dry Can Tender Strength Testing was performed 06/18/19: Avg 4.0# of force w/ R desktop engineer Avg 48.0# of force w/ L desktop engineer Short Term Goals 1. 0-30 degrees active right wrist flexion. 06/29/19= 50% met 2. 0-10 degrees active right wrist radial deviation. = 50% met GOALS MET 0-30 degrees active right wrist extension. *MET 06/18/19 0-20 degrees active right wrist flexion. *MET 06/26/19 0-40 degrees active right wrist extension. *MET 06/26/19 Custodial Goals 1. Poncho will be modified independent with execution of home exercise program utilizing provided written and visual instructions from therapist. 2. Poncho will present with increased ability to engage in meaningful activities d/t improved desktop engineer strength; this will be evidenced by Poncho averaging 15.0# of force with right dynamometer II strength testing. 06/30/19= 3. Poncho will present with increased ability to actively engage in meaningful activities; this will be evidenced by Poncho's report of ability to return to work. GOALS MET Able to oppose right thumb to each digit pad x 3 cycles. * MET 06/18/19 - Exercises 8 Descriptor In-hand object manipulation. Complex rotation. Translation. Shift. Separation of 2 sides of hand. 6 Descriptor Finger AROM. Tendon glides. Side Right Body Position Seated 5 Descriptor Thumb AROM. Thumb extension palm TT. Thumb opposition (pads of digits/ base). Thumb flexion. Thumb radial abduction. Thumb palmar abduction. Thumb adduction. CMC ROM. Side Right Body Position Seated 4 Descriptor Symmetrical coordination of upper extremities 2 Descriptor Funtional movement patterns. B sh finger walks w/ wrist flex and elbow flex <-> elbow and wrist ext (forearm supination) . 1 Descriptor HEP/POC. Reviewed need to use splint with completion of light activities in the home and to wear splint at night; instructed to avoid heavy activities. Discussed following-up w/ surgeon during appointment re: continued splint wearing recommendations. Discussed utilizing active range of motion with use of object to support active wrist flexion/ extension d/t continued difficulties w/ execution of isolated wrist exercises (e.g. , tennis ball floor/wall). Practiced in treatment session . Patient denied questions. Complexity Upgraded - Assessment Patient Response to Treatment Good Rehab Potential Good Assessment of Improvement Swelling being managed via elevation, gentle massage, and icing. Positive patient response to symmetrical UE and object based ROM activities/ exercises. Patient to follow- up w/ surgeon 07/03. Recommend making adjustments to treatment/HEP as directed by surgeon. Continued outpatient OT is recommended to maximize Birute's ability to successfully utilize dominant R hand in day-to-day life with meaningful task completion. Recommendations: AROM; symmetrical UE motor planning; in-hand object manipulation Home Exercise Program Please refer to treatment section of note for specific details. - Plan Therapy Recommendations Continue with Current Program, Advance per Rehabilitation Protocol
--- NOTE | 2019-07-06 14:43 | OT.OP.TRT ---
Visit Care Team Role Provider Type Juan J Soriano MD Primary Care Provider Physician Specialty: Family Practice Address: [address] [place] [address], [address] Email: [email or web address] Edilberto Ordaz MD Attending Provider Physician Referring Provider Specialty: Orthopedic Surgery Address: [address] [place] [address], [address] Email: [email or web address] Occupational Therapy Treatment Note OT Outpatient Treatment Note - Adult Start: 06/11/19 14:28 Freq: Status: Active Protocol: Document 07/06/19 14:26 AMS (Rec: 07/06/19 14:43 AMS [email or web address]) OT Outpatient Adult Treatment Note Session Time Visit Start Time 12:30 Visit Stop Time 13:15 Total Visit Minutes 45 Visit Information Plan of Care Dates 06/11/2019-09/03/2019 Insurance Information [employer] Setting Treatment Setting Outpatient Care Visit Type Note Type Treatment Note General Information General Information Poncho is a 58 year-old right hand dominant female referred to outpatient OT by Edilberto Ordaz MD, status post open reduction internal fixation right distal radius fracture. Poncho reported that she was walking with a water bottle when she slipped and fell on black ice which led to right distal radius fracture. Poncho arrived to initial evaluation w/ splint on. Small surgical tape was on site of wound; nervous to remove surgical strips. She reported that she spoke to the surgeon's nurse yesterday d/t her pain; she said that the nurse told her that she needed to be icing and taking her pain medication . PMH: Significant for arthritis; back pain; thyroid disorder; (+) social history. - Subjective Identification Type Name Identification Reconciled With Medical Record Observations He removed the splint and gave me a 2-pound weight limit on Saturday. He said that it was healing per Poncho. I think that I did too much yesterday though. Patient/Caregiver Compliance with Home Good Exercise Program Comments w/ use of written/visual info; encouragement required at this time - Objective Objective Measurements Mild swelling. Wound healed. 07/06/19= ROM Measurements end of session: 0-30 degrees active R wrist flex 0-45 degrees active R wrist ext 0-10 degrees active R wrist RD 0-20 degrees active R wrist UD Dynamometer II Jet Worker/ Pinchometer Strength Testing was performed 06/18/19: Avg 5.0# of force w/ R burial vault maker Avg 6.0# of force w/ R lateral pinch vs Avg 14.0# of force L lateral pinch Avg 4.5# of force w/ R tip pinch vs Avg 14.0# of force L tip pinch 06/18/19= ROM Measurements were taken pre-treatment: 0-5 degrees active R wrist RD (5 degree improvement) 0-15 degrees active R wrist UD (no change in ROM) 0-15 degrees active R wrist flex (5 degree improvement) 0-30 degrees active R wrist ext (10 degree improvement) Dynamometer II Jet Worker Strength Testing was performed 06/18/19: Avg 4.0# of force w/ R burial vault maker Avg 48.0# of force w/ L burial vault maker Short Term Goals 1. 0-30 degrees active right wrist flexion (as measured at beginning of treatment session ). 07/06/19= 50% met 2. 0-10 degrees active right wrist radial deviation (as measured at beginning of treatment session). 07/06/19= 50 % met GOALS MET 0-30 degrees active right wrist extension. *MET 06/18/19 0-20 degrees active right wrist flexion. *MET 06/26/19 0-40 degrees active right wrist extension. *MET 06/26/19 Gasfitter Goals 1. Poncho will be modified independent with execution of home exercise program utilizing provided written and visual instructions from therapist. 2. Poncho will present with increased ability to engage in meaningful activities d/t improved burial vault maker strength; this will be evidenced by Poncho averaging 15.0# of force with right dynamometer II strength testing. 06/30/19= 3. Poncho will present with increased ability to actively engage in meaningful activities; this will be evidenced by Poncho's report of ability to return to work. GOALS MET Able to oppose right thumb to each digit pad x 3 cycles. * MET 06/18/19 - Exercises 8 Descriptor In-hand object manipulation. Complex rotation. Translation. Shift. Separation of 2 sides of hand. 6 Descriptor Finger AROM. Tendon glides. Side Right Body Position Seated 5 Descriptor Thumb AROM. Thumb extension palm TT. Thumb opposition (pads of digits/ base). Thumb flexion. Thumb radial abduction. Thumb palmar abduction. Thumb adduction. CMC ROM. Side Right Body Position Seated 4 Descriptor Symmetrical coordination of upper extremities. UEB x 5 minutes; bilateral UEs. 2 Descriptor Funtional movement patterns. Wrist flex/ext; throwing items . Focus on avoidance of compensatory strategies. 1 Descriptor HEP/POC. Education provided re : encouragement of functional movement patterns with object manipulation (w/ focus on wrist ext and wrist flexion). Education re: avoidance of compensatory movement patterns . Instructed in passive wrist extension w/ ball given Poncho 's positive response to 2- handed or bimanual activities. Recommended warm-up or use of heat pre-exercises. Instructed in eccentric strengthening with light weight (1# dumbbell w/ focus on controlled movement of weight) for wrist ext, wrist flex and wrist UD based on 2# weight limit. Provided written and visual instructions for wrist ext and wrist flex. Instructed in proximal stabilization. Patient denied questions. Complexity Upgraded - Assessment Patient Response to Treatment Good Rehab Potential Good Assessment of Improvement Swelling being managed via elevation, gentle massage, and icing. (+) report from surgeon per Poncho; splint removed and given 2-pound weight limit. Use of compensatory patterns; cueing to support ROM occurring at wrist versus larger movement patterns. Advanced HEP. Continued outpatient OT is recommended to maximize Poncho 's ability to successfully utilize dominant R hand in day -to-day life with meaningful task completion. Recommendations: AROM; symmetrical UE motor planning Home Exercise Program Please refer to treatment section of note for specific details. - Plan Therapy Recommendations Continue with Current Program, Advance per Rehabilitation Protocol
--- NOTE | 2019-07-10 11:48 | OT.OP.TRT ---
Visit Care Team Role Provider Type Juan J Soriano MD Primary Care Provider Physician Specialty: Family Practice Address: [address] [place] [address], [id number] Email: [email or web address] Edilberto Ordaz MD Attending Provider Physician Referring Provider Specialty: Orthopedic Surgery Address: [address] [place] [address], [id number] Email: [email or web address] Occupational Therapy Treatment Note OT Outpatient Treatment Note - Adult Start: 06/11/19 14:28 Freq: Status: Active Protocol: Document 07/10/19 11:14 AMS (Rec: 07/10/19 11:48 AMS [email or web address]) OT Outpatient Adult Treatment Note Session Time Visit Start Time 10:30 Visit Stop Time 11:15 Total Visit Minutes 45 Visit Information Plan of Care Dates 06/11/2019-09/03/2019 Insurance Information [employer] Setting Treatment Setting Outpatient Care Visit Type Note Type Treatment Note General Information General Information Poncho is a 58 year-old right hand dominant female referred to outpatient OT by Edilberto Ordaz MD, status post open reduction internal fixation right distal radius fracture. Poncho reported that she was walking with a water bottle when she slipped and fell on black ice which led to right distal radius fracture. Poncho arrived to initial evaluation w/ splint on. Small surgical tape was on site of wound; nervous to remove surgical strips. She reported that she spoke to the surgeon's nurse yesterday d/t her pain; she said that the nurse told her that she needed to be icing and taking her pain medication . PMH: Significant for arthritis; back pain; thyroid disorder; (+) social history. - Subjective Identification Type Name Identification Reconciled With Medical Record Observations I am still having trouble bending the wrist this way and I feel like I am weak per Poncho. Patient/Caregiver Compliance with Home Good Exercise Program Comments w/ use of written/visual info; encouragement required at this time - Objective Objective Measurements Mild swelling. Wound healed. 07/10/19= ROM Measurements beginning of session: 0-30 degrees active R wrist flex 0-55 degrees active R wrist ext 0-10 degrees active R wrist RD 0-25 degrees active R wrist UD Dynamometer II Auto Mechanic Supervisor/ Pinchometer Strength Testing was performed 06/18/19: Avg 5.0# of force w/ R parts counterperson Avg 6.0# of force w/ R lateral pinch vs Avg 14.0# of force L lateral pinch Avg 4.5# of force w/ R tip pinch vs Avg 14.0# of force L tip pinch 06/18/19= ROM Measurements were taken pre-treatment: 0-5 degrees active R wrist RD (5 degree improvement) 0-15 degrees active R wrist UD (no change in ROM) 0-15 degrees active R wrist flex (5 degree improvement) 0-30 degrees active R wrist ext (10 degree improvement) Dynamometer II Auto Mechanic Supervisor Strength Testing was performed 06/18/19: Avg 4.0# of force w/ R parts counterperson Avg 48.0# of force w/ L parts counterperson Short Term Goals 1. 0-40 degrees active right wrist flexion. 07/10/19= GOAL UPGRADED GOALS MET 0-30 degrees active right wrist extension. *MET 06/18/19 0-20 degrees active right wrist flexion. *MET 06/26/19 0-40 degrees active right wrist extension. *MET 06/26/19 0-30 degrees active right wrist flexion. *MET 07/10/19 0-10 degrees active right wrist radial deviation. 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 Poncho will be modified independent with execution of home exercise program utilizing provided written and visual instructions from therapist. 2. Poncho will present with increased ability to engage in meaningful activities d/t improved parts counterperson strength; this will be evidenced by Poncho averaging 15.0# of force with right dynamometer II strength testing. 06/30/19= 3. Poncho will present with increased ability to actively engage in meaningful activities; this will be evidenced by Poncho's report of ability to return to work. GOALS MET Able to oppose right thumb to each digit pad x 3 cycles. * MET 06/18/19 - Exercises 9 Descriptor Strengthening of hand/eye-hand coordination. 500 gram ball/1 .1# yellow ball - release/ grasp w/ different patterns in front of body and to the right of the body. 6 Descriptor PROM wrist. Wrist/digit extension w/ forearm supination. Wrist/digit flexion w/ forearm pronation. Prayer pose. Side Right Body Position Seated 5 Descriptor Thumb AROM. Thumb extension palm TT. Thumb opposition (pads of digits/ base). Thumb flexion. Thumb radial abduction. Thumb adduction. Side Right Body Position Seated 4 Descriptor Symmetrical coordination of upper extremities. UEB x 5 minutes; B UEs. 2 Descriptor Funtional movement patterns. Wrist flex/ext; throwing items . Focus on avoidance of compensatory strategies. 1 Descriptor HEP/POC. Instructed in PROM exercises; prayer pose/wrist/ digit flexion w/ use of arm rest (poor tolerance for elbow ext); wrist/digit extension w / forearm in supination (poor tolerance for elbow ext). Encouraged to manipulate objects out infront and to the right of body secondary to protective posturing of UE since injury. Patient denied questions. Complexity Upgraded - Assessment Patient Response to Treatment Good Rehab Potential Good Assessment of Improvement Improving functional AROM of wrist; 0-55 degrees active wrist extension however, decreased functional wrist flexion. Improving RD/UD AROM. Increased reliance on L UE; protective posturing noted since injury. Advanced HEP. Continued outpatient OT is recommended to maximize Poncho 's ability to successfully utilize dominant R hand in day -to-day life with meaningful task completion. Recommendations: PROM; functional movement patterns. Home Exercise Program Please refer to treatment section of note for specific details. - Plan Therapy Recommendations Continue with Current Program, Advance per Rehabilitation Protocol
--- NOTE | 2019-07-14 15:25 | OT.OP.TRT ---
Visit Care Team Role Provider Type Juan J Soriano MD Primary Care Provider Physician Specialty: Family Practice Address: [address] [place] [address], [id number] Email: [email or web address] Edilberto Ordaz MD Attending Provider Physician Referring Provider Specialty: Orthopedic Surgery Address: [address] [place] [address], [id number] Email: [email or web address] Occupational Therapy Treatment Note OT Outpatient Treatment Note - Adult Start: 06/11/19 14:28 Freq: Status: Active Protocol: Document 07/14/19 15:13 AMS (Rec: 07/14/19 15:24 AMS [email or web address]) OT Outpatient Adult Treatment Note Session Time Visit Start Time 10:30 Visit Stop Time 11:15 Total Visit Minutes 45 Visit Information Plan of Care Dates 06/11/2019-09/03/2019 Insurance Information [employer] Setting Treatment Setting Outpatient Care Visit Type Note Type Treatment Note General Information General Information Poncho is a 58 year-old right hand dominant female referred to outpatient OT by Edilberto Ordaz MD, status post open reduction internal fixation right distal radius fracture. Poncho reported that she was walking with a water bottle when she slipped and fell on black ice which led to right distal radius fracture. Poncho arrived to initial evaluation w/ splint on. Small surgical tape was on site of wound; nervous to remove surgical strips. She reported that she spoke to the surgeon's nurse yesterday d/t her pain; she said that the nurse told her that she needed to be icing and taking her pain medication . PMH: Significant for arthritis; back pain; thyroid disorder; (+) social history. - Subjective Identification Type Name Identification Reconciled With Medical Record Observations I have an appointment on the with the surgeon. I am going back to work on the . He is going to give me restrictions on what I can and cannot do per Poncho. Patient/Caregiver Compliance with Home Good Exercise Program Comments w/ use of written/visual info; encouragement required at this time - Objective Objective Measurements Mild swelling. Wound healed. 07/14/19= ROM Measurements beginning of session: 0-30 degrees active R wrist flex; 0-40 degrees passive R wrist flex 0-55 degrees active R wrist ext 0-10 degrees active R wrist RD 0-25 degrees active R wrist UD Dynamometer II Lumber Checker/ Pinchometer Strength Testing was performed 06/18/19: Avg 5.0# of force w/ R plastics plater Avg 6.0# of force w/ R lateral pinch vs Avg 14.0# of force L lateral pinch Avg 4.5# of force w/ R tip pinch vs Avg 14.0# of force L tip pinch 06/18/19= ROM Measurements were taken pre-treatment: 0-5 degrees active R wrist RD (5 degree improvement) 0-15 degrees active R wrist UD (no change in ROM) 0-15 degrees active R wrist flex (5 degree improvement) 0-30 degrees active R wrist ext (10 degree improvement) Dynamometer II Lumber Checker Strength Testing was performed 06/18/19: Avg 4.0# of force w/ R plastics plater Avg 48.0# of force w/ L plastics plater Short Term Goals 1. 0-40 degrees active right wrist flexion. 07/14/19= 25% met. 0-40 degrees passive wrist flex GOALS MET 0-30 degrees active right wrist extension. *MET 06/18/19 0-20 degrees active right wrist flexion. *MET 06/26/19 0-40 degrees active right wrist extension. *MET 06/26/19 0-30 degrees active right wrist flexion. *MET 07/10/19 0-10 degrees active right wrist radial deviation. 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 Poncho will be modified independent with execution of home exercise program utilizing provided written and visual instructions from therapist. 2. Poncho will present with increased ability to engage in meaningful activities d/t improved plastics plater strength; this will be evidenced by Poncho averaging 15.0# of force with right dynamometer II strength testing. 06/30/19= 3. Poncho will present with increased ability to actively engage in meaningful activities; this will be evidenced by Poncho's report of ability to return to work. GOALS MET Able to oppose right thumb to each digit pad x 3 cycles. * MET 06/18/19 - Treatment 2 Descriptor Scar tissue mobilization. Exercises 9 Descriptor Strengthening of hand/eye-hand coordination. 500 gram ball - release/grasp w/ different patterns in front of body and to the right of the body. 6 Descriptor PROM wrist. Wrist/digit extension w/ forearm supination. Wrist/digit flexion w/ forearm in neutral. Side Right Body Position Seated 5 Descriptor Thumb AROM. Thumb extension palm TT. Thumb opposition (pads of digits/ base). Thumb flexion. Thumb radial abduction. Thumb adduction. Side Right Body Position Seated 4 Descriptor Symmetrical coordination of upper extremities. UEB x 5 minutes; B UEs. 2 Descriptor Funtional movement patterns. Wrist flex/ext. TT with use of visual feedback. B hand grasp horizontal bar. Focus on avoidance of compensatory strategies. 1 Descriptor HEP/POC. Instructed in scar tissue mobilization/massage. Poncho denied hypersensitivity to input at site of scar ( volar surface of R forearm). Recommended bilateral wrist flex/extension w/ step railing , passive right wrist flexion (utilizing visual cue provided ) scar tissue mobilization/ massage. Poncho denied questions. Complexity Upgraded - Assessment Patient Response to Treatment Good Rehab Potential Good Assessment of Improvement Decreased active functional right wrist flexion 0-30 degrees active wrist flexion versus 0-40 degrees passive right wrist flexion. (-) hypersensitivity to touch at site of scar per patient report. Need for scar tissue mobilization/massage. Advanced HEP. Continued outpatient OT is recommended to maximize Poncho's ability to successfully utilize dominant R hand in day-to-day life with meaningful task completion. Recommendations: PROM; functional movement patterns. Home Exercise Program Please refer to treatment section of note for specific details. - Plan Therapy Recommendations Continue with Current Program, Advance per Rehabilitation Protocol
--- NOTE | 2019-07-16 15:30 | OT.OP.TRT ---
Visit Care Team Role Provider Type Juan J Soriano MD Primary Care Provider Physician Specialty: Family Practice Address: [address] [place] [address], [id number] Email: [email or web address] Edilberto Ordaz MD Attending Provider Physician Referring Provider Specialty: Orthopedic Surgery Address: [address] [place] [address], [address] Email: [email or web address] Occupational Therapy Treatment Note OT Outpatient Treatment Note - Adult Start: 06/11/19 14:28 Freq: Status: Active Protocol: Document 07/16/19 15:30 AMS (Rec: 07/17/19 10:11 AMS [email or web address]) OT Outpatient Adult Treatment Note Session Time Visit Start Time 13:30 Visit Stop Time 14:15 Total Visit Minutes 45 Visit Information Plan of Care Dates 06/11/2019-09/03/2019 Insurance Information [employer] Setting Treatment Setting Outpatient Care Visit Type Note Type Treatment Note General Information General Information Poncho is a 58 year-old right hand dominant female referred to outpatient OT by Edilberto Ordaz MD, status post open reduction internal fixation right distal radius fracture. Poncho reported that she was walking with a water bottle when she slipped and fell on black ice which led to right distal radius fracture. Poncho arrived to initial evaluation w/ splint on. Small surgical tape was on site of wound; nervous to remove surgical strips. She reported that she spoke to the surgeon's nurse yesterday d/t her pain; she said that the nurse told her that she needed to be icing and taking her pain medication . PMH: Significant for arthritis; back pain; thyroid disorder; (+) social history. - Subjective Identification Type Name Identification Reconciled With Medical Record Observations There are good days and there are bad days. Should I see the surgeon before the ? per Poncho. Patient/Caregiver Compliance with Home Good Exercise Program Comments w/ use of written/visual info; encouragement required at this time - Objective Objective Measurements Mild swelling. Wound healed. 07/14/19= ROM Measurements beginning of session: 0-30 degrees active R wrist flex; 0-40 degrees passive R wrist flex 0-55 degrees active R wrist ext 0-10 degrees active R wrist RD 0-25 degrees active R wrist UD Dynamometer II [employer]/ Pinchometer Strength Testing was performed 06/18/19: Avg 5.0# of force w/ R drawbridge tender Avg 6.0# of force w/ R lateral pinch vs Avg 14.0# of force L lateral pinch Avg 4.5# of force w/ R tip pinch vs Avg 14.0# of force L tip pinch 06/18/19= ROM Measurements were taken pre-treatment: 0-5 degrees active R wrist RD (5 degree improvement) 0-15 degrees active R wrist UD (no change in ROM) 0-15 degrees active R wrist flex (5 degree improvement) 0-30 degrees active R wrist ext (10 degree improvement) Dynamometer II Casino Porter Strength Testing was performed 06/18/19: Avg 4.0# of force w/ R drawbridge tender Avg 48.0# of force w/ L drawbridge tender Short Term Goals 1. 0-40 degrees active right wrist flexion. 07/16/19= 25% met. 0-40 degrees passive wrist flex GOALS MET 0-30 degrees active right wrist extension. *MET 06/18/19 0-20 degrees active right wrist flexion. *MET 06/26/19 0-40 degrees active right wrist extension. *MET 06/26/19 0-30 degrees active right wrist flexion. *MET 07/10/19 0-10 degrees active right wrist radial deviation. *MET Long-Term Goals 1. Poncho will be modified independent with execution of home exercise program utilizing provided written and visual instructions from therapist. 2. Poncho will present with increased ability to engage in meaningful activities d/t improved drawbridge tender strength; this will be evidenced by Poncho averaging 15.0# of force with right dynamometer II strength testing. 06/30/19= 3. oPncho will present with increased ability to actively engage in meaningful activities; this will be evidenced by Poncho's report of ability to return to work. GOALS MET Able to oppose right thumb to each digit pad x 3 cycles. * MET 06/18/19 - Treatment 2 Descriptor Scar tissue mobilization. Exercises 9 Descriptor Strengthening of hand. Motor planning. Eye-hand coordination. 500 gram ball - release/grasp w/ different patterns in front of body and to the right of the body. 6 Descriptor PROM distal upper extremity. Side Right Body Position Seated 5 Descriptor Thumb AROM. Thumb extension palm TT. Thumb opposition (pads of digits/ base). Thumb flexion. Thumb radial abduction. Thumb adduction. Side Right Body Position Seated 4 Descriptor UEB x 5 minutes B UEs. 2 Descriptor Functional movement patterns. Wrist flex/ext. TT with use of visual feedback. B hand grasp horizontal bar. Focus on avoidance of compensatory strategies. 1 Descriptor HEP/POC. Introduced functional passive range of motion stretch for wrist flexion to support carry-over. Recommended focus on passive range of motion of distal UE. [place] denied questions. Complexity Upgraded - Assessment Patient Response to Treatment Good Rehab Potential Good Assessment of Improvement Focus on importance of avoidance of compensatory movement patterns with functional task completion, as well as importance of scar tissue mobilization (per patient request) and passive range of motion. Modified passive wrist flexion exercise to support carry-over and correct execution. Continued outpatient OT is recommended to maximize Poncho's ability to successfully utilize dominant R hand in day-to-day life with meaningful task completion. Recommendations: PROM; functional movement patterns. Home Exercise Program Please refer to treatment section of note for specific details. - Plan Therapy Recommendations Continue with Current Program, Advance per Rehabilitation Protocol
--- NOTE | 2019-07-21 10:49 | OT.OP.TRT ---
Visit Care Team Role Provider Type Juan J Soriano MD Primary Care Provider Physician Specialty: Family Practice Address: [address] [place] [address], [address] Email: [email or web address] Edilberto Ordaz MD Attending Provider Physician Referring Provider Specialty: Orthopedic Surgery Address: [address] [place] [address], [address] Email: [email or web address] Note OT Outpatient Treatment Note - Adult Start: 06/11/19 14:28 Freq: Status: Active Protocol: Document 07/21/19 09:48 AMS (Rec: 07/21/19 10:49 AMS [email or web address]) OT Outpatient Adult Treatment Note Session Time Visit Start Time 09:30 Visit Stop Time 10:25 Total Visit Minutes 55 Visit Information Plan of Care Dates 06/11/2019-09/03/2019 Insurance Information [employer] Setting Treatment Setting Outpatient Care Visit Type Note Type Treatment Note General Information General Information Poncho is a 58 year-old right hand dominant female referred to outpatient OT by Edilberto Ordaz MD, status post open reduction internal fixation right distal radius fracture. Poncho reported that she was walking with a water bottle when she slipped and fell on black ice which led to right distal radius fracture. Poncho arrived to initial evaluation w/ splint on. Small surgical tape was on site of wound; nervous to remove surgical strips. She reported that she spoke to the surgeon's nurse yesterday d/t her pain; she said that the nurse told her that she needed to be icing and taking her pain medication . PMH: Significant for arthritis; back pain; thyroid disorder; (+) social history. - Subjective Identification Type Name Identification Reconciled With Medical Record Observations I didn't take a pain medication yesterday per Poncho. Patient/Caregiver Compliance with Home Good Exercise Program Comments w/ use of written/visual info; encouragement required at this time - Objective Objective Measurements Mild swelling. Please refer to below for progress towards meeting established OT goals. 07/21/19= AROM R Wrist beginning of treatment session : 0-37 degrees active R wrist flex w/ max encouragement; 0- 55 degrees active R wrist ext; 0-10 degrees active R wrist RD; 0-25 degrees active R wrist UD. 07/21/19 = Dynamometer II Metalsmith/ Pinchometer Strength Testing: Avg 20.0# of force w/ R intermission coordinator; 10.0# of force w/ R lateral pinch; avg 8.0# of force w/ R tip pinch. 07/14/19= ROM Measurements beginning of session: 0-30 degrees active R wrist flex; 0-40 degrees passive R wrist flex 0-55 degrees active R wrist ext 0-10 degrees active R wrist RD 0-25 degrees active R wrist UD Dynamometer II Metalsmith/ Pinchometer Strength Testing was performed 06/18/19: Avg 5.0# of force w/ R intermission coordinator Avg 6.0# of force w/ R lateral pinch vs Avg 14.0# of force L lateral pinch Avg 4.5# of force w/ R tip pinch vs Avg 14.0# of force L tip pinch 06/18/19= ROM Measurements were taken pre-treatment: 0-5 degrees active R wrist RD (5 degree improvement) 0-15 degrees active R wrist UD (no change in ROM) 0-15 degrees active R wrist flex (5 degree improvement) 0-30 degrees active R wrist ext (10 degree improvement) Dynamometer II Metalsmith Strength Testing was performed 06/18/19: Avg 4.0# of force w/ R intermission coordinator Avg 48.0# of force w/ L intermission coordinator Short Term Goals 1. 0-40 degrees active right wrist flexion. 07/21/19= 75% met. 0-37 degrees active R wrist flex w/ max encouragement GOALS MET 0-30 degrees active right wrist extension. *MET 06/18/19 0-20 degrees active right wrist flexion. *MET 06/26/19 0-40 degrees active right wrist extension. *MET 06/26/19 0-30 degrees active right wrist flexion. *MET 07/10/19 0-10 degrees active right wrist radial deviation. *MET Pan Operator Goals 1. Birute will be modified independent with execution of home exercise program utilizing provided written and visual instructions from therapist. 2. Birute will present with increased ability to engage in meaningful activities d/t improved intermission coordinator strength; this will be evidenced by Birute averaging 30.0# of force with right dynamometer II strength testing. 07/21/19= GOAL UPGRADED 3. Poncho will present with increased ability to actively engage in meaningful activities; this will be evidenced by Poncho's report of ability to return to work. 07/21/19= will be following up w/ surgeon at end of month GOALS MET Able to oppose right thumb to each digit pad x 3 cycles. * MET 06/18/19 Avg 15.0# of force w/ R Dynamometer II strength testing. *MET 07/21/19; avg 20. 0# of force w/ R intermission coordinator - Treatment 2 Descriptor Scar tissue mobilization. Exercises 9 Descriptor Strengthening of hand w/ motor planning/eye-hand coordination tasks. Use of 500 gram ball. 6 Descriptor PROM distal upper extremity. Side Right Body Position Seated 5 Descriptor Thumb AROM. Thumb extension palm TT. Thumb opposition (pads of digits/ base). Thumb flexion. Thumb radial abduction. Thumb adduction. Side Right Body Position Seated 4 Descriptor UEB x 5 minutes B UEs. 2 Descriptor Functional movement patterns. 1 Descriptor HEP/POC. Given Poncho's verbalized concerns re: decreased strength, therapist completed intermission coordinator/pinch strength testing, provided education re : functional strength building tasks that can be completed in the home, and reviewed use of theraputty to help with hand/digit strengthening. Poncho was also provided w/ firm theraputty for home use if current theraputty available in the home becomes to 'easy' or no longer a challenge. Initiated additional functional grasp and release therapeutic activities (unimanual and bimanual in nature), as well as UE motor planning activities, with use of large ball/500 gram ball w/ and w/ out utilization of available wall space. Functional problem solving completed to support carry-over w/ resources currently available to patient . Poncho denied questions. Complexity Upgraded - Assessment Patient Response to Treatment Good Rehab Potential Good Assessment of Improvement Improved R intermission coordinator, R lateral pinch and R tip pinch strength observed w/ standardized testing; goal was upgraded in this area based on work expectations. Improving active wrist ROM. Improving spontaneous functional incorporation of R UE; however , decreased coordination and ' trust' of R UE noted w/ participation in more dynamic exercises. Continued outpatient OT is recommended to maximize Poncho's ability to successfully utilize dominant R hand in day-to-day life with meaningful task completion. Recommendations: PROM; functional movement patterns; bimanual coordination; object manipulation Home Exercise Program Please refer to treatment section of note for specific details. - Plan Therapy Recommendations Continue with Current Program, Advance per Rehabilitation Protocol
--- NOTE | 2019-07-22 12:44 | OT.OP.TRT ---
Visit Care Team Role Provider Type Juan J Soriano MD Primary Care Provider Physician Specialty: Family Practice Address: [address] [place] [address], [address] Email: [email or web address] Edilberto Ordaz MD Attending Provider Physician Referring Provider Specialty: Orthopedic Surgery Address: [address] [place] [address], [id number] Email: [email or web address] Note OT Outpatient Treatment Note - Adult Start: 06/11/19 14:28 Freq: Status: Active Protocol: Document 07/22/19 12:34 AMS (Rec: 07/22/19 12:44 AMS [email or web address]) OT Outpatient Adult Treatment Note Session Time Visit Start Time 08:30 Visit Stop Time 09:20 Total Visit Minutes 50 Visit Information Plan of Care Dates 06/11/2019-09/03/2019 Insurance Information [employer] Setting Treatment Setting Outpatient Care Visit Type Note Type Treatment Note General Information General Information Poncho is a 58 year-old right hand dominant female referred to outpatient OT by Edilberto Ordaz MD, status post open reduction internal fixation right distal radius fracture. Poncho reported that she was walking with a water bottle when she slipped and fell on black ice which led to right distal radius fracture. Poncho arrived to initial evaluation w/ splint on. Small surgical tape was on site of wound; nervous to remove surgical strips. She reported that she spoke to the surgeon's nurse yesterday d/t her pain; she said that the nurse told her that she needed to be icing and taking her pain medication . PMH: Significant for arthritis; back pain; thyroid disorder; (+) social history. - Subjective Identification Type Name Identification Reconciled With Medical Record Observations It was painful to plug my phone into the outlet this morning per Poncho. Patient/Caregiver Compliance with Home Good Exercise Program - Objective Objective Measurements Mild swelling. Please refer to below for progress towards meeting established OT goals. 07/21/19= AROM R Wrist beginning of treatment session : 0-37 degrees active R wrist flex w/ max encouragement; 0- 55 degrees active R wrist ext; 0-10 degrees active R wrist RD; 0-25 degrees active R wrist UD. 07/21/19 = Dynamometer II General Engineer/ Pinchometer Strength Testing: Avg 20.0# of force w/ R consumer loan officer; 10.0# of force w/ R lateral pinch; avg 8.0# of force w/ R tip pinch. 07/14/19= ROM Measurements beginning of session: 0-30 degrees active R wrist flex; 0-40 degrees passive R wrist flex 0-55 degrees active R wrist ext 0-10 degrees active R wrist RD 0-25 degrees active R wrist UD Dynamometer II General Engineer/ Pinchometer Strength Testing was performed 06/18/19: Avg 5.0# of force w/ R consumer loan officer Avg 6.0# of force w/ R lateral pinch vs Avg 14.0# of force L lateral pinch Avg 4.5# of force w/ R tip pinch vs Avg 14.0# of force L tip pinch 06/18/19= ROM Measurements were taken pre-treatment: 0-5 degrees active R wrist RD (5 degree improvement) 0-15 degrees active R wrist UD (no change in ROM) 0-15 degrees active R wrist flex (5 degree improvement) 0-30 degrees active R wrist ext (10 degree improvement) Dynamometer II General Engineer Strength Testing was performed 06/18/19: Avg 4.0# of force w/ R consumer loan officer Avg 48.0# of force w/ L consumer loan officer Short Term Goals 1. 0-40 degrees active right wrist flexion. 07/21/19= 75% met. 0-37 degrees active R wrist flex w/ max encouragement GOALS MET 0-30 degrees active right wrist extension. *MET 06/18/19 0-20 degrees active right wrist flexion. *MET 06/26/19 0-40 degrees active right wrist extension. *MET 06/26/19 0-30 degrees active right wrist flexion. *MET 07/10/19 0-10 degrees active right wrist radial deviation. *MET [facility] Goals 1. Birute will be modified independent with execution of home exercise program utilizing provided written and visual instructions from therapist. 2. Birute will present with increased ability to engage in meaningful activities d/t improved consumer loan officer strength; this will be evidenced by Birute averaging 30.0# of force with right dynamometer II strength testing. 07/21/19= GOAL UPGRADED 3. Birute will present with increased ability to actively engage in meaningful activities; this will be evidenced by Poncho's report of ability to return to work. 07/21/19= will be following up w/ surgeon at end of month GOALS MET Able to oppose right thumb to each digit pad x 3 cycles. * MET 06/18/19 Avg 15.0# of force w/ R Dynamometer II strength testing. *MET 07/21/19; avg 20. 0# of force w/ R consumer loan officer - Exercises 9 Descriptor Strengthening of hand w/ motor planning/eye-hand coordination tasks. Use of 500 gram ball. 8 Descriptor Dowel exercise. 2# DB. Bilateral wrists. Focus on right wrist. 6 Descriptor PROM distal upper extremity. Side Right Body Position Seated 5 Descriptor Thumb AROM. Thumb extension palm TT. Thumb opposition (pads of digits/ base). Thumb flexion. Thumb radial abduction. Thumb adduction. Side Right Body Position Seated 4 Descriptor UEB x 5 minutes B UEs. 2 Descriptor Functional movement patterns. Engagement of wrist stabilizers w/ large ball. Use of cane. 1 Descriptor HEP/POC. Initiated use of cane to increase dynamic nature of wrist movements w/ rhythmic nature and incorporation of B UEs/hands given positive patient response to these types of activities; initiated gentle stabilizing exercise w / use of large ball and executed bilaterally. Discussed use of dowel and weight (within restrictions) for strengthening purposes. Functional problem solving completed to support carry- over w/ resources currently available to patient. Poncho denied questions. Complexity Upgraded - Assessment Patient Response to Treatment Good Rehab Potential Good Assessment of Improvement Protective posturing noted w/ execution of unfamiliar activities; (+) patient response to bilateral and rhythmic activities. Improving tolerance for gentle underhand toss and catch w/ use of 500 gram ball relative to R hand. Support to avoid compensatory strategies and increased reliance on L UE. Continued outpatient OT is recommended to maximize Poncho 's ability to successfully utilize dominant R hand in day -to-day life with meaningful task completion. Recommendations: PROM; functional movement patterns; bimanual coordination; object manipulation Home Exercise Program Please refer to treatment section of note for specific details. - Plan Therapy Recommendations Continue with Current Program, Advance per Rehabilitation Protocol
--- NOTE | 2019-07-23 14:43 | OT.OP.TRT ---
Visit Care Team Role Provider Type Juan J Soriano MD Primary Care Provider Physician Specialty: Family Practice Address: [address] [place] [address], [address] Email: [email or web address] Edilberto Ordaz MD Attending Provider Physician Referring Provider Specialty: Orthopedic Surgery Address: [address] [place] [address], [address] Email: [email or web address] [email or web address] Treatment Note OT Outpatient Treatment Note - Adult Start: 06/11/19 14:28 Freq: Status: Active Protocol: Document 07/23/19 14:34 AMS (Rec: 07/23/19 14:43 AMS [email or web address]) OT Outpatient Adult Treatment Note Session Time Visit Start Time 01:10 Visit Stop Time 01:40 Total Visit Minutes 30 Visit Information Plan of Care Dates 06/11/2019-09/03/2019 Insurance Information [employer] Setting Treatment Setting Outpatient Care Visit Type Note Type Treatment Note General Information General Information Poncho is a 58 year-old right hand dominant female referred to outpatient OT by Edilberto Ordaz MD, status post open reduction internal fixation right distal radius fracture. Poncho reported that she was walking with a water bottle when she slipped and fell on black ice which led to right distal radius fracture. Poncho arrived to initial evaluation w/ splint on. Small surgical tape was on site of wound; nervous to remove surgical strips. She reported that she spoke to the surgeon's nurse yesterday d/t her pain; she said that the nurse told her that she needed to be icing and taking her pain medication . PMH: Significant for arthritis; back pain; thyroid disorder; (+) social history. - Subjective Identification Type Name Identification Reconciled With Medical Record Observations No new changes reported by Poncho. Treatment session shortened secondary to patient insurance limitations. Patient/Caregiver Compliance with Home Good Exercise Program - Objective Objective Measurements Mild swelling. Please refer to below for progress towards meeting established OT goals. 07/21/19= AROM R Wrist beginning of treatment session : 0-37 degrees active R wrist flex w/ max encouragement; 0- 55 degrees active R wrist ext; 0-10 degrees active R wrist RD; 0-25 degrees active R wrist UD. 07/21/19 = Dynamometer II Strap Folding Machine Operator/ Pinchometer Strength Testing: Avg 20.0# of force w/ R sales relationship manager; 10.0# of force w/ R lateral pinch; avg 8.0# of force w/ R tip pinch. 07/14/19= ROM Measurements beginning of session: 0-30 degrees active R wrist flex; 0-40 degrees passive R wrist flex 0-55 degrees active R wrist ext 0-10 degrees active R wrist RD 0-25 degrees active R wrist UD Dynamometer II Strap Folding Machine Operator/ Pinchometer Strength Testing was performed 06/18/19: Avg 5.0# of force w/ R sales relationship manager Avg 6.0# of force w/ R lateral pinch vs Avg 14.0# of force L lateral pinch Avg 4.5# of force w/ R tip pinch vs Avg 14.0# of force L tip pinch 06/18/19= ROM Measurements were taken pre-treatment: 0-5 degrees active R wrist RD (5 degree improvement) 0-15 degrees active R wrist UD (no change in ROM) 0-15 degrees active R wrist flex (5 degree improvement) 0-30 degrees active R wrist ext (10 degree improvement) Dynamometer II Strap Folding Machine Operator Strength Testing was performed 06/18/19: Avg 4.0# of force w/ R sales relationship manager Avg 48.0# of force w/ L sales relationship manager Short Term Goals 1. 0-40 degrees active right wrist flexion. 07/23/19= 75% met. 0-40 degrees active R wrist flex w/ min encouragement GOALS MET 0-30 degrees active right wrist extension. *MET 06/18/19 0-20 degrees active right wrist flexion. *MET 06/26/19 0-40 degrees active right wrist extension. *MET 06/26/19 0-30 degrees active right wrist flexion. *MET 07/10/19 0-10 degrees active right wrist radial deviation. *MET Nursing Home Goals 1. Birute will be modified independent with execution of home exercise program utilizing provided written and visual instructions from therapist. 2. Birute will present with increased ability to engage in meaningful activities d/t improved sales relationship manager strength; this will be evidenced by Birute averaging 30.0# of force with right dynamometer II strength testing. 07/21/19= GOAL UPGRADED 3. Birute will present with increased ability to actively engage in meaningful activities; this will be evidenced by Poncho's report of ability to return to work. 07/21/19= will be following up w/ surgeon at end of month GOALS MET Able to oppose right thumb to each digit pad x 3 cycles. * MET 06/18/19 Avg 15.0# of force w/ R Dynamometer II strength testing. *MET 07/21/19; avg 20. 0# of force w/ R sales relationship manager - Exercises 9 Descriptor Strengthening of hand w/ motor planning/eye-hand coordination tasks. Use of 500 gram ball. 1# TB. 8 Descriptor Dowel exercise. 2# DB. 6 Descriptor PROM distal upper extremity. Side Right Body Position Seated 4 Descriptor UEB x 5 minutes B UEs. 2 Descriptor Functional movement patterns. 1 Descriptor HEP/POC. Discussed insurance limitations w/ Romanute; options discussed included reduction of length of treatment session and increasing time between treatment sessions. Provided with light resistant TB #1 as another option to support carry-over. Functional problem solving completed to support carry-over w/ resources currently available to patient . Recommended continuing w/ scar tissue mobilization. Poncho denied questions. Complexity Upgraded - Assessment Patient Response to Treatment Good Rehab Potential Good Assessment of Improvement Discussed insurance limitations; recommended having follow-up appointment s /p appointment w/ surgeon. Poncho however, wanted to cont w/ current scheduled appointments. Decreasing guarding noted w/ 500 gram weighted ball exercises, as well as w/ cane exercises. Decreased confidence noted however, with above head 2# DB manipulation to support functional obj manipulation away from base of support. Recommended carry-over of this exercise as able. Continued outpatient OT is recommended to maximize Poncho's ability to successfully utilize dominant R hand in day-to-day life with meaningful task completion. Recommendations: PROM; functional movement patterns; bimanual coordination; object manipulation Home Exercise Program Please refer to treatment section of note for specific details. - Plan Therapy Recommendations Continue with Current Program, Decrease Frequency of Rehabilitation
--- NOTE | 2019-12-22 09:12 | OT.OP.DC ---
Visit Care Team Role Provider Type Juan J Soriano MD Primary Care Provider Physician Address: [address] [place] [address], [id number] Email: [email or web address] Edilberto Ordaz MD Attending Provider Physician Referring Provider Address: [address] [place] [address], [id number] Email: [email or web address] OT Outpatient Adult Evaluation Start: 06/11/19 14:28 Freq: Status: Active Protocol: Document 06/11/19 14:29 AMS (Rec: 06/11/19 14:32 AMS [id number]) General Information Session Time Visit Start Time 13:30 Visit Stop Time 14:25 Total Visit Minutes 55 Visit Information Plan of Care Dates 06/11/2019-09/03/2019 Insurance Information [employer] - Adult; Eval charge only Setting Treatment Setting Outpatient Care Visit Type Note Type Initial Evaluation Referral Referring Physician Edilberto Ordaz MD Reason for Referral Right wrist pain Precautions status post ORIF Right Wrist Fracture 2 x a week for 4 weeks Identification Identification Confirmed Yes: Photo ID Previous Therapy Previous Therapy/Therapies No Therapy Pain Assessment Pain When Pain Assessed pre-tx Pain Present Pain Present Pain Reported Location Right Finger Scale Used 3-7; thumb Right Wrist Scale Used 3-7 Goals Objective Measurements Objective Measurements 0-10 degrees active right wrist flex. 0-20 degrees active right wrist ext. 0-0 degrees active right wrist RD. 0-15 degrees active right wrist UD. 0-70 degrees active right forearm supination. 0-75 degrees active right forearm pronation. Opposition to R 3rd digit pad. Pain/discomfort w/ movement of thumb; hesitant towards any movement with R thumb. Unable to execute hook fist, table, or composite fist . Treatment Treatment HEP initiated. Written and visual instructions were provided for home recommendations. Active wrist flex, ext, RD, UD, and forearm supination/pronation. Active thumb ROM - opposition to each digit pad as able/base of 5th digit, thumb circles. Tendon glides. All exercises were reviewed in treatment session. Education provided re: importance of ROM. Discussed importance of edema management (with active range of motion, ice). Short Term Goals Short Term Goals 1. 0-20 degrees active right wrist flexion. 2. 0-30 degrees active right wrist extension. Bed Teacher Goals Bed Teacher Goals 1. Poncho will be modified independent with execution of home exercise program utilizing provided written and visual instructions from therapist. 2. Poncho will be able to oppose right thumb to each digit pad x 3 cycles without complaints of pain and/or discomfort. Assessment/Plan Assessment Patient Response Good Rehabilitation Potential Good Treatment Assessment Poncho is a 58 year-old right hand dominant female referred to outpatient OT by Edilberto Ordaz MD, status post open reduction internal fixation right distal radius fracture. Poncho reported that she was walking with a water bottle when she slipped and fell on black ice which led to right distal radius fracture. Poncho arrived to initial evaluation w/ splint on. Small surgical tape was on site of wound; nervous to remove surgical strips. She reported that she spoke to the surgeon's nurse yesterday d/t her pain; she said that the nurse told her that she needed to be icing and taking her pain medication . PMH: Significant for arthritis; back pain; thyroid disorder; (+) social history. Evaluation Findings: Right hand dominant female hesitant to move distal R UE; pain of distal R UE being managed w/ pain meds as directed by referring physician; (+) use of R wrist splint; protective posturing of the R UE; distal R UE edema being managed w/ ice as directed by referring physician; decreased AROM of distal R UE (including digits/ wrist); opposition of R thumb to 3rd digit pad; weakness; and decreased ability to actively utilize R UE in day- to-day life with object manipulation/execution of functional tasks. Outpatient OT is recommended to maximize Poncho's ability to successfully utilize dominant R hand in day-to-day life with meaningful task completion. Home Exercise Program Please refer to treatment section of note for specific details. Plan Comment 12 weeks Comment 2-3 times per week Therapeutic Contents Active Range of Motion, Adaptive Equipment Education, Client Education,Cognitive Skills Development,Functional Activities,Home Exercise Program,Joint Protection, Manual Therapy,Education, Neurodevelopment Treatment, Neuromuscular Re-Education, Self-Care,Stretching/ Flexibility Activities, Therapeutic Activities, Therapeutic Exercises, Modalities,Sensory Re- education Modalities As Needed,As Prescribed Types of Modalities Contrast Bath,E-Stim, Functional Stimulation (FES),T .E.N. Stimulation,TENS Placement/Application, Ultrasound Additional Types of Modalities Heat/Paraffin Sensory Assessment Sensory Profile2 Functional Wrist/Hand Scan Hand Side OT Outpatient Treatment Note - Adult Start: 06/11/19 14:28 Freq: Status: Active Protocol: Document 12/22/19 09:09 AMS (Rec: 12/22/19 09:12 AMS [id number]) OT Outpatient Adult Treatment Note Visit Information Plan of Care Dates 06/11/2019-09/03/2019 Insurance Information [employer] Setting Treatment Setting Outpatient Care Visit Type Note Type Discharge Summary - Subjective Observations Poncho has not been seen in the outpatient setting for occupational therapy since . Recommend d/c at this time and therapist to follow- up as appropriate. - Objective Short Term Goals GOALS D/C as of 12/22/19 0-40 degrees active right wrist flexion. 07/23/19= 75% met. 0-40 degrees active R wrist flex. D/C GOALS MET 0-30 degrees active right wrist extension. *MET 06/18/19 0-20 degrees active right wrist flexion. *MET 06/26/19 0-40 degrees active right wrist extension. *MET 06/26/19 0-30 degrees active right wrist flexion. *MET 07/10/19 0-10 degrees active right wrist radial deviation. 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 D/C Poncho will present with increased ability to actively engage in meaningful activities; this will be evidenced by Poncho's report of ability to return to work. D/C GOALS MET Able to oppose right thumb to each digit pad x 3 cycles. * MET 06/18/19 Avg 15.0# of force w/ R Dynamometer II strength testing. *MET 07/21/19; avg 20. 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 Recommend d/c at this time and therapist to follow- up as appropriate. - Plan Therapy Recommendations Discharge from Occupational Therapy
== END 2019-12-23 14:15 ==
LOC: OT 13:00
PROVIDERS: PCP Family Medicine; Referring Provider Orthopaedic Surgery Adult Reconstructive Orthopaedic Surgery; Visit Provider Orthopaedic Surgery Adult Reconstructive Orthopaedic Surgery
DX: S52.531A Colles' fracture of right radius, initial encounter for closed fracture (principal)
CPT/HCPCS: 97035; 97110; 97112; 97140; 97165; 97530

== ENCOUNTER → 2020-01-31 08:38 | Outpatient (CLI) | payer OTHER, SELFPAY ==
[2020-02-01 09:44] LABS: COVID19 Sendout Not Detected (Not Detect)
== END ==
PROVIDERS: PCP Family Medicine; Visit Provider Nurse Practitioner
DX: Z11.59 Encounter for screening for other viral diseases (principal)
CPT/HCPCS: 87635

== ENCOUNTER → 2020-07-05 08:38 | Outpatient (CLI) | payer OTHER, MEDICAID, SELFPAY ==
[2020-07-05 10:54] LABS: Alanine Aminotransferase 34 IU/L (<35); Albumin 4.5 g/dL (3.5-5.0); Albumin Globulin Ratio 1.6 (1.0-2.8); Alkaline Phosphatase 77 U/L (38-126); Aspartate Aminotransferase 36 IU/L (14-36); BUN Creatinine Ratio 18.7 (6-22); Bilirubin Total 0.7 mg/dL (0.2-1.3); Blood Urea Nitrogen 14 mg/dL (7-17); Calcium 9.8 mg/dL (8.4-10.2); Carbon Dioxide 24 mmol/L (22-32); Chloride 105 mmol/L (98-107); Cholesterol 260 mg/dL (140-199); Estimated Glomerular Filt Rate > 60.0 mL/min (>60); Globulin 2.9 g/dL (1.7-4.1); Glucose 89 mg/dL (70-100); HEMOLYSIS < 15 (0-50); Potassium 4.4 mmol/L (3.4-5.1); Sodium 134 mmol/L (137-145); Total Protein 7.4 g/dL (6.3-8.2); Triglycerides 92 mg/dL (35-150)
[2020-07-05 11:06] LABS: Free T3, Triiodothyronine Free 6.08 pg/mL (2.77-5.27); Free T4, Direct Thyroxine 0.73 ng/dL (0.78-2.19)
[2020-07-05 11:18] LABS: HDL Cholesterol 112 mg/dL (40-60); LDL Cholesterol Calculated 130 mg/dL (<100)
[2020-07-05 11:20] LABS: Thyroid Stimulating Hormone 2.81 uIU/mL (0.47-4.68)
== END ==
PROVIDERS: PCP Internal Medicine; Referring Provider Internal Medicine; Visit Provider Internal Medicine
DX: E03.9 Hypothyroidism, unspecified (principal); E78.5 Hyperlipidemia, unspecified; N60.01 Solitary cyst of right breast
CPT/HCPCS: 36415; 80053; 80061; 84439; 84443; 84481

== ENCOUNTER → 2021-02-01 12:01 | Outpatient (CLI) | payer OTHER, MEDICAID, SELFPAY ==
[2021-02-01 14:36] LABS: Free T3, Triiodothyronine Free 5.83 pg/mL (2.77-5.27); Free T4, Direct Thyroxine 0.83 ng/dL (0.78-2.19)
[2021-02-01 14:50] LABS: Thyroid Stimulating Hormone 0.475 uIU/mL (0.47-4.68)
== END ==
PROVIDERS: PCP Internal Medicine; Referring Provider Internal Medicine; Visit Provider Internal Medicine
DX: E03.9 Hypothyroidism, unspecified (principal)
CPT/HCPCS: 36415; 84439; 84443; 84481

== ENCOUNTER → 2021-08-24 12:08 | Outpatient (CLI) | payer OTHER, MEDICAID, SELFPAY ==
--- NOTE | 2021-08-24 12:09 | DI.RAD.S_ITS ---
PROCEDURE: XR PELVIS 1-2V INDICATIONS: left sacroliliac pain TECHNIQUE: Single view of the pelvis acquired. COMPARISON: None. FINDINGS: Bones: No fractures or dislocations. There is mild axial joint space narrowing in the hips bilaterally. There is minimal degeneration of the left sacroiliac joint. No suspicious bony lesions. Soft tissues: Visualized bowel gas pattern is normal. There is an oval calcified mass lesion in the left hemipelvis consistent with a calcified fibroid. IMPRESSION: 1. Minimal degeneration of the left sacroiliac joint. 2. Mild bilateral axial joint space narrowing in the hips. Dictated by: Benja Ferrera M.D. on 08/24/2021 at 16:07 Approved by: Benja Ferrera M.D. on 08/24/2021 at 16:08
== END ==
PROVIDERS: PCP Internal Medicine; Referring Provider Internal Medicine; Visit Provider Internal Medicine
DX: M53.3 Sacrococcygeal disorders, not elsewhere classified (principal); G89.29 Other chronic pain
CPT/HCPCS: 72170

== ENCOUNTER → 2021-08-29 09:10 | Outpatient (CLI) | payer OTHER, MEDICAID, SELFPAY ==
[2021-08-29 11:37] LABS: Alanine Aminotransferase 23 IU/L (<35); Albumin 4.6 g/dL (3.5-5.0); Albumin Globulin Ratio 1.9 (1.0-2.8); Alkaline Phosphatase 73 U/L (38-126); Aspartate Aminotransferase 32 IU/L (14-36); BUN Creatinine Ratio 16.5 (6-22); Bilirubin Total 0.6 mg/dL (0.2-1.3); Blood Urea Nitrogen 13 mg/dL (7-17); Calcium 9.5 mg/dL (8.4-10.2); Carbon Dioxide 27 mmol/L (22-32); Chloride 103 mmol/L (98-107); Cholesterol 252 mg/dL (140-199); Estimated Glomerular Filt Rate > 60 mL/min (>60); Globulin 2.4 g/dL (1.7-4.1); Glucose 87 mg/dL (80-110); HEMOLYSIS < 15 (0-50); Potassium 4.6 mmol/L (3.4-5.1); Sodium 136 mmol/L (137-145); Triglycerides 81 mg/dL (35-150)
[2021-08-29 11:49] LABS: HDL Cholesterol 131 mg/dL (40-60); LDL Cholesterol Calculated 105 mg/dL (<100)
[2021-08-29 11:52] LABS: Free T3, Triiodothyronine Free 5.78 pg/mL (2.77-5.27); Free T4, Direct Thyroxine 0.77 ng/dL (0.78-2.19)
[2021-08-29 12:05] LABS: Thyroid Stimulating Hormone 5.32 uIU/mL (0.47-4.68)
== END ==
PROVIDERS: PCP Internal Medicine; Referring Provider Internal Medicine; Visit Provider Internal Medicine
DX: E03.9 Hypothyroidism, unspecified (principal); Z13.6 Encounter for screening for cardiovascular disorders
CPT/HCPCS: 36415; 80053; 80061; 84439; 84443; 84481

== ENCOUNTER → 2021-09-13 15:00 | Outpatient (CLI) | payer OTHER, MEDICAID, SELFPAY | PROVIDERS: PCP Internal Medicine; Referring Provider Internal Medicine; Visit Provider Internal Medicine | DX: M81.0 Age-related osteoporosis without current pathological fracture (principal); Z78.0 Asymptomatic menopausal state | CPT/HCPCS: 77080 ==

== ENCOUNTER → 2021-11-02 09:14 | Outpatient (CLI) | payer OTHER, MEDICAID, SELFPAY ==
--- NOTE | 2021-11-02 | DI.MG.S_ITS ---
BILATERAL DIGITAL DIAGNOSTIC MAMMOGRAM 3D/2D POST LUMPECTOMY: 11/02/2021 CLINICAL: Non palpable lump. Comparison is made to exams dated: 06/04/2017 ultrasound, 06/04/2017 mammogram, and 05/17/2016 mammogram - [facility]. The tissue of both breasts is extremely dense, which lowers the sensitivity of mammography. The left breast has post-operative findings. There is a biopsy site marker on the right breast. There are stable benign calcifications in the right breast. No significant masses, calcifications, or other findings are seen in either breast. IMPRESSION: INCOMPLETE: NEEDS ADDITIONAL IMAGING EVALUATION There is no abnormality seen in the right breast to correspond with the area of clinical concern and provider palpable abnormality, however, an ultrasound is recommended for further evaluation and is scheduled to immediately follow this examination. Stable post surgical findings in the left breast. This exam was interpreted at Station ID: [id number]. NOTE: For mammograms, a report in lay terms will be sent to the patient. Approximately 15% of breast malignancies will not be visualized mammographically. In the management of a palpable breast mass, a negative mammogram must not discourage biopsy of a clinically suspicious lesion. Electronically Signed By: Santosh Woods M.D. aty/:11/02/2021 10:17:32 ACR BI-RADS Category 0: Incomplete [id number]
--- NOTE | 2021-11-02 | DI.US.S_ITS ---
LIMITED ULTRASOUND OF RIGHT BREAST: 11/02/2021 CLINICAL: Palpable right breast lump by physician. No prior exams were available for comparison. Real-time ultrasound of the right breast 9-12 o'clock region was performed. Love scale images of the real-time examination were reviewed. No significant abnormalities were seen sonographically in the right breast. IMPRESSION: NEGATIVE There is no sonographic evidence of malignancy. There is no abnormality seen in the right breast to correspond with the area of clinical concern and provider palpable abnormality in the upper outer quadrant which likely represent normal fibroglandular tissue, however, recommend clinical follow up for persistent or worsening symptoms, or development of any clinically suspicious findings. A 1 year screening mammogram is recommended. Findings and recommendations were conveyed to the patient during today's evaluation. This exam was interpreted at Station ID: [id number]. Electronically Signed By: Santosh Woods M.D. aty/:11/02/2021 10:20:53 letter sent: Clinical Evaluation Ultrasound BI-RADS: 1 Negative
== END ==
PROVIDERS: Family Provider Internal Medicine; PCP Internal Medicine; Referring Provider Pediatrics; Visit Provider Pediatrics
DX: R92.2 Inconclusive mammogram
CPT/HCPCS: 76642; 77066; G0279

== ENCOUNTER → 2021-11-22 08:28 | Outpatient (CLI) | payer OTHER, MEDICAID, SELFPAY ==
[2021-11-22 09:43] LABS: Free T3, Triiodothyronine Free 5.81 pg/mL (2.77-5.27); Free T4, Direct Thyroxine 0.78 ng/dL (0.78-2.19)
[2021-11-22 09:56] LABS: Thyroid Stimulating Hormone 3.66 uIU/mL (0.47-4.68)
== END ==
PROVIDERS: Family Provider Internal Medicine; PCP Internal Medicine; Referring Provider Internal Medicine; Visit Provider Internal Medicine
DX: E03.9 Hypothyroidism, unspecified (principal)
CPT/HCPCS: 36415; 84439; 84443; 84481

== ENCOUNTER 2022-03-07 03:37 | Emergency (ER) | payer OTHER, MEDICAID, SELFPAY ==
[2022-03-07 03:45] VITALS: BP 120/60; PULSE 72; RESP 18; TEMP 36.6; O2SAT 98
[2022-03-07 04:48] VITALS: BP 126/68; PULSE 64; RESP 18; O2SAT 97
--- NOTE | 2022-03-07 07:41 | ED_ITS ---
HPI - Back Pain/Injury General Chief Complaint: Back Pain/Injury Stated Complaint: pain in back/butt area difficult walking and pain Time Seen by Provider: 03/07/22 07:41 Source: patient Mode of arrival: Ambulatory Limitations: no limitations History of Present Illness HPI Narrative: Patient presents with complaints of left lower back pain. Pain initially started about 1 year ago. X-rays revealed degenerative changes at the left SI joint. She is been through physical therapy. Pain has recently exacerbated. She is no central, lumbar low back pain. Pain focus is in the left SI region and does not radiate. She is normal range of motion to the left hip without added discomfort. She is no pain shooting down her left leg. She is no incontinence, no lower extremity numbness or weakness. She denies recent illness. She is had no fever or chills. She is no GI or symptoms. She underwent dental procedure yesterday. She reports sleeping well last night, pain this morning may be related to her sleeping position. Related Data Home Medications Medication Instructions Recorded Confirmed Fish Oil 1 tbsp PO DAILY 06/07/20 11/20/21 Previous Rx's Medication Instructions Recorded cholecalciferol (vitamin D3) 50 2,000 unit PO DAILY #90 caps 03/09/19 mcg (2,000 unit) capsule thyroid (pork) 90 mg tablet 90 mg PO DAILY low thyroid #90 tabs 02/27/22 tramadol 50 mg tablet 50 mg PO Q6H PRN pain #14 tabs 03/07/22 Allergies Allergy/AdvReac Type Severity Reaction Status Date / Time nickel AdvReac Unknown Unlisted Verified 11/20/21 15:45 Review of Systems Review of Systems ROS Unobtainable: All systems reviewed & are unremarkable except as noted in HPI and below Patient History Medical History (Updated 03/07/22 @ 08:03 by Marshal Anthony MD) Colles' fracture of right radius Cyst of right breast (04/27/15) History of malignant neoplasm of left breast (04/27/15) History of melanoma (04/08/11) Hypothyroidism (04/27/15) Sacroiliitis Surgical History H/O left mastectomy History of appendectomy History of tonsillectomy Social History household members: spouse Smoking Status: Never smoker alcohol intake: never substance use type: does not use Smoking Status: Never smoker alcohol intake frequency: holidays/special occasions only Substance Use Type: does not use, painkillers and prescription drug Exam Initial Vital Signs Initial Vital Signs: Vital Signs Temperature 97.9 F 03/07/22 03:45 Pulse Rate 72 03/07/22 03:45 Respiratory Rate 18 03/07/22 03:45 Blood Pressure 120/60 03/07/22 03:45 Pulse Oximetry 98 03/07/22 03:45 Oxygen Delivery Method 03/07/22 03:45 Const General: cooperative, healthy appearing and other (Uncomfortable) Nutritional Appearance: well nourished Orientation: Orientation (Normal) [facility] Head: normal to inspection, normocephalic and atraumatic Back/Spine/Pelvis Back: other Thoracic/Lumbar Spine: thoracic and lumbar spine normal to inspection and thoraco-lumbar ROM normal Sacroiliac Joints: tender to palpation left Other: No inflammatory changes over the left SI joint. Skin General: no rashes or lesions noted Neuro General: patient alert, patient awake and no focal motor deficits Extrem Other: No left hip tenderness. Negative SLR bilaterally. Psych Appearance: grossly normal Course Course Course Narrative: Pain management is discussed. She is not had success in the past with Advil. She would prefer to avoid narcotics. I suggested a combination of Advil plus as needed tramadol. I am suggesting she follow up with her doctor regarding physical therapy, and perhaps to see a pain specialist, she may benefit from inj ections to the site. Vital Signs Vital signs: Vital Signs - 8 hr 03/07/22 03:45 03/07/22 04:48 Temperature 97.9 F Pulse Rate 72 64 Respiratory Rate 18 18 Blood Pressure 120/60 126/68 Pulse Oximetry 98 97 Oxygen Delivery Method Room Air Room Air Discharge Plan Departure Patient Disposition: Home Clinical Impression: Sacroiliitis Instructions: Sacroiliac Joint Pain Activity Restrictions/Additional Instructions: Advil 2 tablets every 6 hours for pain. Tramadol every 6 hours for added pain control when needed. Follow up with Dr. Evans. I would suggest return to physical therapy. Dr. Evans maybe but arrang injections to the SI joint. Prescriptions: New tramadol 50 mg tablet 50 mg PO Q6H PRN (Reason: pain) Qty: 14 0RF No Action cholecalciferol (vitamin D3) 2,000 unit capsule 2,000 unit PO DAILY Qty: 90 3RF thyroid (pork) 90 mg tablet 90 mg PO DAILY Qty: 90 1RF Fish Oil 1 tbsp PO DAILY Referrals: Giovani Evans MD [Primary Care Provider] -
[2022-03-07] MEDS: KETOROLAC 30 MG/ML VIAL IV (08:15)
[2022-03-07 08:28] VITALS: BP 120/70; PULSE 80; RESP 18; TEMP 36.6; O2SAT 98
== END 2022-03-07 08:28 | disposition home or self-care (01) ==
PROVIDERS: Emergency Provider Emergency Medicine; Family Provider Internal Medicine; PCP Internal Medicine
DX: M46.1 Sacroiliitis, not elsewhere classified (principal)
CPT/HCPCS: 96374; 99283; 99284; J1885

== ENCOUNTER → 2022-03-28 09:28 | Outpatient (CLI) | payer OTHER, MEDICAID, SELFPAY ==
--- NOTE | 2022-03-28 09:30 | DI.RAD.S_ITS ---
PROCEDURE: XR LUMBAR SPINE MIN 4V INDICATIONS: Low Back Pain TECHNIQUE: 5 views of the lumbar spine were acquired, including bilateral oblique views. COMPARISON: [facility], CR, XR PELVIS 1-2V, 08/24/2021, 12:00. FINDINGS: Bones: 5 nonrib-bearing vertebrae are present. No significant curvature visualized. 8 mm anterolisthesis L4 on L5. Moderate multilevel degenerative changes with disc height loss, endplate spurring, and facet arthropathy. No vertebral body compression fractures. No suspicious bony lesions. Soft tissues: Overlying bowel gas pattern is normal. Coarse calcification redemonstrated projecting over the left aspect of the pelvis, possible uterine fibroid. Oblique images: No definite pars defects. IMPRESSION: Moderate degenerative changes of the lumbar spine. Dictated by: Stephan Sheldon M.D. on 03/28/2022 at 12:54 Approved by: Stephan Sheldon M.D. on 03/28/2022 at 12:59
== END ==
PROVIDERS: Family Provider Internal Medicine; PCP Internal Medicine; Referring Provider Anesthesiology; Visit Provider Anesthesiology
DX: M47.26 Other spondylosis with radiculopathy, lumbar region; M70.72 Other bursitis of hip, left hip; M21.611 Bunion of right foot; M54.50 Low back pain, unspecified; G89.29 Other chronic pain
CPT/HCPCS: 72110; 99214

== ENCOUNTER → 2022-07-11 10:47 | Outpatient (CLI) | payer OTHER, MEDICAID, SELFPAY ==
[2022-07-11 11:27] LABS: Appearance Urine UA CLEAR; Bilirubin Urine UA NEGATIVE (NEGATIVE); Color Urine UA YELLOW; Glucose Urine UA NEGATIVE (Negative); Ketones Urine UA NEGATIVE (NEGATIVE); Leukocyte Esterase Urine UA NEGATIVE (NEGATIVE); Nitrite Urine UA NEGATIVE (Negative); Occult Blood Urine UA NEGATIVE (Negative); Protein Urine UA NEGATIVE (Negative); Specific Gravity Urine UA <=1.005 (1.000-1.035); Urobilinogen Urine UA 0.2 E.U./dL (0.2)
[2022-07-11 11:35] LABS: Bacteria Urine None Seen; Culture Indicated Urine Cult Not Indicated; RBC Urine None Seen (0-5/HPF); Urine Comments Microscopic Normal; WBC Urine None Seen (0-5/HPF)
[2022-07-11 12:30] LABS: Hematocrit 40.8 % (36-46); Hemoglobin 13.7 g/dL (12.0-16.0); Mean Corpuscular HGB Conc 33.7 % (30-36); Mean Corpuscular Volume 92.2 fL (80-100); Platelet Count 179 X10^3/uL (150-400); Red Blood Cell Count 4.43 X10^6/uL (4.0-5.2); Red Cell Distribution Width 14.1 % (11.6-14.8); White Blood Cell Count 7.9 X10^3/uL (4.5-11.0)
[2022-07-11 12:40] LABS: Hemoglobin A1C% w Est Avg Glu 5.4 % (4.0-6.0)
[2022-07-11 12:58] LABS: Alanine Aminotransferase 28 IU/L (<35); Albumin 4.4 g/dL (3.5-5.0); Albumin Globulin Ratio 1.5 (1.0-2.8); Alkaline Phosphatase 88 U/L (38-126); Aspartate Aminotransferase 31 IU/L (14-36); BUN Creatinine Ratio 27.6 (6-22); Bilirubin Total 0.4 mg/dL (0.2-1.3); Blood Urea Nitrogen 16 mg/dL (7-17); Carbon Dioxide 25 mmol/L (22-32); Chloride 105 mmol/L (98-107); Estimated Glomerular Filt Rate > 60 mL/min (>60); Glucose 102 mg/dL (80-110); HEMOLYSIS < 15 (0-50); Potassium 3.9 mmol/L (3.4-5.1); Sodium 137 mmol/L (137-145); Total Protein 7.4 g/dL (6.3-8.2)
[2022-07-11 13:29] LABS: TSH w/ Reflex to FT4 0.54 uIU/mL (0.47-4.68)
== END ==
PROVIDERS: Family Provider Internal Medicine; PCP Internal Medicine; Referring Provider Internal Medicine; Visit Provider Internal Medicine
DX: R82.998 Other abnormal findings in urine (principal); E03.9 Hypothyroidism, unspecified; R53.83 Other fatigue; R73.01 Impaired fasting glucose
CPT/HCPCS: 36415; 80053; 81001; 83036; 84443; 85027

== ENCOUNTER → 2022-08-14 09:14 | Outpatient (CLI) | payer OTHER, MEDICAID, SELFPAY ==
--- NOTE | 2022-08-14 09:15 | DI.US.S_ITS ---
PROCEDURE: US PELVIC COMPLETE INDICATIONS: PAIN TECHNIQUE: Real-time scanning was performed of the pelvic organs, with image documentation. Additional endovaginal scanning was necessary due to incomplete visualization of the adnexal and endometrial structures by transabdominal scanning. COMPARISON: None. FINDINGS: Uterus: Uterus is anteverted and normal in size at 5.5 x 3.1 x 5.4 cm. The myometrium is homogeneous. The endometrium measures 2.5 mm combined thickness. Single left posterior intramural fibroid measures 1.8 x 1.5 x 1.9 cm Ovaries: The right ovary measures 2.1 x 1.3 x 2.0 cm, with a calculated ovarian volume of 2.8 cc. The left ovary measures 2.9 x 1.3 x 1.1 cm The ovaries have a normal sonographic appearance. Less than 12 follicles can be seen in each ovary. No adnexal masses are seen. Other: No pathologic free abdominal or pelvic fluid. IMPRESSION: Small intramural fibroid Approved by: Cortes Trevizo M.D. on 08/14/2022 at 15:18
== END ==
PROVIDERS: Family Provider Internal Medicine; PCP Internal Medicine; Referring Provider Internal Medicine; Visit Provider Internal Medicine
DX: R10.2 Pelvic and perineal pain (principal); D25.1 Intramural leiomyoma of uterus
CPT/HCPCS: 76830; 76856

== ENCOUNTER → 2023-11-06 10:39 | Outpatient (CLI) | payer SELFPAY | PROVIDERS: Family Provider Internal Medicine; PCP Internal Medicine; Visit Provider Nurse Practitioner Family | DX: R21 Rash and other nonspecific skin eruption (principal) | CPT/HCPCS: 87070; 87205; 87252 ==

== ENCOUNTER → 2024-01-01 08:32 | Outpatient (CLI) | payer SELFPAY ==
[2024-01-01 09:58] LABS: Free T4, Direct Thyroxine 0.66 ng/dL (0.78-2.19)
[2024-01-01 10:12] LABS: Thyroid Stimulating Hormone 3.32 uIU/mL (0.47-4.68)
== END ==
LOC: LAB 08:35
PROVIDERS: Family Provider Internal Medicine; PCP Internal Medicine; Referring Provider Internal Medicine; Visit Provider Internal Medicine
DX: E03.9 Hypothyroidism, unspecified (principal); Z13.1 Encounter for screening for diabetes mellitus
CPT/HCPCS: 36415; 84439; 84443

== ENCOUNTER → 2024-07-13 07:32 | Outpatient (CLI) | payer OTHER, SELFPAY ==
[2024-07-13 10:29] LABS: Thyroid Stimulating Hormone 1.42 uIU/mL (0.47-4.68)
== END ==
PROVIDERS: Family Provider Internal Medicine; PCP Internal Medicine; Referring Provider Internal Medicine; Visit Provider Internal Medicine
DX: E03.9 Hypothyroidism, unspecified (principal); R79.89 Other specified abnormal findings of blood chemistry
CPT/HCPCS: 36415; 84439; 84443

== ENCOUNTER → 2025-02-15 07:35 | Outpatient (CLI) | payer OTHER, SELFPAY ==
[2025-02-15 08:16] LABS: Alanine Aminotransferase 30 IU/L (<35); Albumin 4.8 g/dL (3.5-5.0); Albumin Globulin Ratio 1.8 (1.0-2.8); Alkaline Phosphatase 84 U/L (38-126); Blood Urea Nitrogen 15 mg/dL (7-17); Calcium 9.9 mg/dL (8.4-10.2); Carbon Dioxide 28 mmol/L (22-32); Chloride 103 mmol/L (98-107); Cholesterol 274 mg/dL (140-199); Estimated Glomerular Filt Rate > 60 mL/min (>60); Globulin 2.6 g/dL (1.7-4.1); Glucose 98 mg/dL (70-99); HEMOLYSIS < 15 (0-50); Potassium 4.2 mmol/L (3.4-5.1); Sodium 137 mmol/L (137-145); Total Protein 7.4 g/dL (6.3-8.2); Triglycerides 174 mg/dL (35-150)
[2025-02-15 08:23] LABS: HDL Cholesterol 148 mg/dL (40-60)
[2025-02-15 08:33] LABS: Free T3, Triiodothyronine Free 6.51 pg/mL (2.77-5.27); Free T4, Direct Thyroxine 0.90 ng/dL (0.78-2.19)
[2025-02-15 08:47] LABS: Thyroid Stimulating Hormone 1.77 uIU/mL (0.47-4.68)
== END ==
PROVIDERS: Family Provider Internal Medicine; PCP Internal Medicine; Referring Provider Internal Medicine; Visit Provider Internal Medicine
DX: E03.9 Hypothyroidism, unspecified (principal); Z85.3 Personal history of malignant neoplasm of breast; E78.5 Hyperlipidemia, unspecified
CPT/HCPCS: 36415; 80053; 80061; 84439; 84443; 84481